=== PATIENT | male | born 1930 | race Caucasian/White ===

== ENCOUNTER 2017-03-18 15:09 | Emergency (ER) | payer MEDICARE, BC ==
[2017-03-18] MEDS ORDERED: Ibuprofen 600 MG Tab PO ONE (17:58)
--- NOTE | 2017-03-18 18:09 | EDM.PDOC ---
ED HPI GENERAL MEDICAL PROBLEM - General Chief Complaint: Neuro Symptoms/Deficits Stated Complaint: POSSIBLE STROKE Time Seen by Provider: 03/18/17 15:48 Source of Information: Reports: Patient, Family History Limitations: Reports: Altered Mental Status, Physical Impairment - History of Present Illness INITIAL COMMENTS - FREE TEXT/NARRATIVE: 86 years old w m with a h/o chronic low back pain, H/O L2 compression fx. On hydrocodon, was found by his daughter yesterday with slurred speech. No new trauma, Pt his not able to give a HPI. No N/V/D. pt appears to be lethargic. Onset Date: 03/17/17 Onset Time: 06:00 Duration: Hour(s):, Intermittent Location: Reports: Head Back Pain Score (Numeric/FACES): 5 - Related Data Allergies Allergy/AdvReac Type Severity Reaction Status Date / Time diclofenac Allergy Shortness Verified 03/18/17 15:47 of Breath promethazine Allergy Confusion Verified 03/18/17 15:47 Home Meds: Home Meds Digoxin [Digox] 0.125 mg PO DAILY 01/19/14 [History] Metoprolol Succinate [Toprol XL 50mg] 50 mg PO DAILY 01/19/14 [History] Warfarin Sodium [Jantoven] 2.5 mg PO MOWEFR 01/19/14 [History] Furosemide [Lasix] 40 mg PO DAILY PRN 08/24/16 [History] Triamcinolone Acetonide [Triamcinolone Acetonide 0.1% Crm] 1 applic TOP BEDTIME 08/24/16 [History] Carbidopa/Levodopa [Sinemet 25-250 MG] 0.5 tab PO Q4H PRN #60 tablet 08/26/16 [ Rx] Digoxin [Digox] 0.125 mg PO DAILY 03/18/17 [History] Hydrocodone/Acetaminophen [Hydrocodon-Acetaminophn 10-325] 1 tab PO Q6H PRN [History] traMADol [Ultram] 50 mg PO ASDIRECTED PRN 03/18/17 [History] Past Medical History HEENT History: Reports: Cataract, Glaucoma, Other (See Below) Other HEENT History: right pseudophokia Cardiovascular History: Reports: Afib Respiratory History: Reports: PE Genitourinary History: Reports: Prostate Disorder Other Genitourinary History: left kidney mass Musculoskeletal History: Reports: Back Pain, Chronic Other Musculoskeletal History: shoulder bursitis/tendonitis Neurological History: Reports: Other (See Below) Other Neuro History: restless legs Hematologic History: Reports: Anemia Oncologic (Cancer) History: Reports: Prostate Dermatologic History: Reports: Other (See Below) Other Dermatologic History: chronic itch - Infectious Disease History Infectious Disease History: Reports: Chicken Pox, Mumps - Past Surgical History HEENT Surgical History: Reports: Cataract Surgery, Other (See Below) GI Surgical History: Reports: Hernia, Inguinal Male Surgical History: Reports: Prostate Biopsy, TURP-Transurethral Resection of Prostate Musculoskeletal Surgical History: Reports: Hip Replacement, Shoulder Replacement Social & Family History - Tobacco Use Smoking Status *Q: Never Smoker Second Hand Smoke Exposure: No - Caffeine Use Caffeine Use: Reports: Coffee - Alcohol Use Days Per Week of Alcohol Use: 0 - Recreational Drug Use Recreational Drug Use: No ED ROS GENERAL - Review of Systems Review Of Systems: Unable To Obtain ED EXAM, NEURO - Physical Exam Exam: See Below Exam Limited By: Altered Mental Status General Appearance: Alert, Lethargic, Thin Eye Exam: Bilateral Eye: Normal Inspection Ears: Normal External Exam Nose: Normal Inspection Throat/Mouth: Normal Inspection Head Exam: Atraumatic, Normocephalic Neck: Normal Inspection, Supple, Non-Tender Respiratory/Chest: No Respiratory Distress (RR 16) Cardiovascular: Normal Peripheral Pulses GI/Abdominal: Normal Bowel Sounds, Soft, Non-Tender, No Organomegaly (Male) Exam: No Hernia Rectal (Males) Exam: Deferred Neurological: Alert, Normal Dorsiflexion, CN II-XII Intact, Normal Plantar Flexion, Abnormal Gait Back Exam: CVA Tenderness (L), Decreased Range of Motion (not new), Muscle Spasm Extremities: Normal Inspection, Other (traight leg rise test pos.) Psychiatric: Normal Affect, Normal Mood Skin Exam: Warm, Dry, Intact, Normal Color, No Rash EKG INTERPRETATION EKG Date: 03/18/17 Time: 16:05 Rhythm: A-Fib [place]: Normal P-Wave: Absent QRS: Normal ST-T: Normal QT: Normal Comparison: NA - No Prior EKG Course - Vital Signs Text/Narrative:: 86 years old w m with a h/o chronic low back pain, H/O L2 compression fx. On hydrocodon, was found by his daughter yesterday with slurred speech. No new trauma, Pt his not able to give a HPI. No N/V/D. pt appears to be lethargic. PE: thin 86 y.o.w.m, lethargic with slurred speech. pos straight leg rise test Imaging: CT head/Lspine, no acute change. Lab: INR: 1.36 BUN/Cr 27.3 HGB 11.00 WBC Nl. Na 133 K 4.0 Impression: Chronic low back pain, slurred speech ( maybe related to his meds) Subtherapeutic INR level. A fib with NVR. Gen weakness, DNR/DNI Tx: Motrin 600 mg. Reexam: Improved Family requested to d/c the patient to home. He will be observed by hi daughter Plan: D/C home with instructions Last Recorded V/S: Last Vital Signs Temp 36.8 C 03/18/17 15:48 Pulse 100 03/18/17 18:20 Resp 18 03/18/17 18:20 BP 164/99 H 03/18/17 18:20 Pulse Ox 95 03/18/17 18:20 - Orders/Labs/Meds Labs: Laboratory Tests 03/18/17 03/18/17 03/18/17 Range/Units 15:35 15:35 15:35 WBC 10.5 (4.5-12.0) X10-3/uL RBC 3.93 L (4.30-5.75) x10(6)uL Hgb 11.0 L (11.5-15.5) g/dL Hct 33.7 (30.0-51.3) % MCV 85.9 (80-96) fL MCH 28.0 (27.7-33.6) pg MCHC 32.6 (32.2-35.4) g/dL RDW 14.7 (11.5-15.5) % Plt Count 317 (125-369) X10(3)uL MPV 7.6 (7.4-10.4) fL Neut % (Auto) 82.7 H (46-82) % Lymph % (Auto) 7.8 L (13-37) % [place] % (Auto) 8.7 (4-12) % Eos % (Auto) 1 (1.0-5.0) % Baso % (Auto) 0 (0-2) % Neut # (Auto) 8.7 H (1.6-8.3) # Lymph # (Auto) 0.8 (0.6-5.0) # [place] # (Auto) 0.9 (0.0-1.3) # Eos # (Auto) 0.1 (0.0-0.8) # Baso # (Auto) 0.0 (0.0-0.2) # PT 13.7 H (8.7-11.1) INR 1.35 H (0.89-1.13) Sodium 133 L (135-145) mmol/L Potassium 4.7 (3.5-5.3) mmol/L Chloride 102 D (100-110) mmol/L Carbon Dioxide 24 (23-29) mmol/L BUN 30 H (8-23) mg/dL Creatinine 1.1 (0.6-1.3) mg/dL Est Cr Clr Drug Dosing 47.93 mL/min Estimated GFR (MDRD) > 60 (>60) BUN/Creatinine Ratio 27.3 H (9-20) Glucose 122 H (80-116) mg/dL Calcium 8.8 (8.6-10.2) mg/dL Creatine Kinase (60-160) IU/L Troponin I (0.02-0.06) NG/ML B-Natriuretic Peptide (0-100) pg/mL 03/18/17 03/18/17 03/18/17 Range/Units 15:35 15:35 15:35 WBC (4.5-12.0) X10-3/uL RBC (4.30-5.75) x10(6)uL Hgb (11.5-15.5) g/dL Hct (30.0-51.3) % MCV (80-96) fL MCH (27.7-33.6) pg MCHC (32.2-35.4) g/dL RDW (11.5-15.5) % Plt Count (125-369) X10(3)uL MPV (7.4-10.4) fL Neut % (Auto) (46-82) % Lymph % (Auto) (13-37) % [place] % (Auto) (4-12) % Eos % (Auto) (1.0-5.0) % Baso % (Auto) (0-2) % Neut # (Auto) (1.6-8.3) # Lymph # (Auto) (0.6-5.0) # [place] # (Auto) (0.0-1.3) # Eos # (Auto) (0.0-0.8) # Baso # (Auto) (0.0-0.2) # PT (8.7-11.1) INR (0.89-1.13) Sodium (135-145) mmol/L Potassium (3.5-5.3) mmol/L Chloride (100-110) mmol/L Carbon Dioxide (23-29) mmol/L BUN (8-23) mg/dL Creatinine (0.6-1.3) mg/dL Est Cr Clr Drug Dosing mL/min Estimated GFR (MDRD) (>60) BUN/Creatinine Ratio (9-20) Glucose (80-116) mg/dL Calcium (8.6-10.2) mg/dL Creatine Kinase 81 (60-160) IU/L Troponin I 0.02 (0.02-0.06) NG/ML B-Natriuretic Peptide 633 H (0-100) pg/mL Meds: Medications Discontinued Medications Generic Name Dose Route Start Last Admin Trade Name Thiago PRN Reason Stop Dose Admin Ibuprofen 600 mg 03/18/17 17:58 03/18/17 18:33 Motrin PO 03/18/17 17:59 Not Given ONETIME ONE Departure - Departure Time of Disposition: 18:06 Disposition: Home, Self-Care 01 Condition: Good, Fair Clinical Impression: Slurred speech - Discharge Information Referrals: Parker Zayas MD [Primary Care Provider] - Forms: ED Department Discharge Additional Instructions: Please f/u with your PMD in next 1-3 days, please apply ice to the affected area , please come back if your symptoms get worse acutely.
[2017-03-18 18:22] VITALS: BP 164/99
--- NOTE | 2017-03-19 10:44 | CR ---
INDICATION: Elevated BNP. CHEST: AP upright portable view of the chest, 03/18/2017, was compared with 12/2016 and 08/08/2014, again revealing the heart to be enlarged, the aorta tortuous and calcified. No definite evidence of CHF is seen. Little interval change was suggested. Total shoulder arthroplasty is noted on the right. Demineralization is suggested. IMPRESSION: No acute process. Stable chest. MTDD
== END 2017-03-18 18:20 | disposition home or self-care (01) ==
LOC: FB.ED 15:09 → FB.MS 18:00 → UNDOADMOB 18:00 → FB.ED 18:20
DX: R47.81 Slurred speech (principal); M62.838 Other muscle spasm; R53.83 Other fatigue; I48.91 Unspecified atrial fibrillation; Z79.01 Long term (current) use of anticoagulants; Z79.899 Other long term (current) drug therapy; Z98.49 Cataract extraction status, unspecified eye; Z86.711 Personal history of pulmonary embolism
CPT/HCPCS: 36415; 70450; 71010; 72128; 72131; 80048; 82550; 83880; 84484; 85025; 85610; 93005; 99282; 99285

== ENCOUNTER 2018-01-04 16:11 | Inpatient (IN) | payer MEDICARE, BC ==
[2018-01-04] MEDS ORDERED: Albuterol 0.083% 2.5 MG/3 ML Neb Soln NEB ONE (16:33)
--- NOTE | 2018-01-04 16:41 | EDM.PDOC ---
ED HPI GENERAL MEDICAL PROBLEM - General Chief Complaint: Respiratory Problem Stated Complaint: SOB Time Seen by Provider: 01/04/18 16:36 Source of Information: Reports: Patient, Family History Limitations: Reports: No Limitations - History of Present Illness INITIAL COMMENTS - FREE TEXT/NARRATIVE: Productive cough x 2 weeks, worsening. Treated by PMD yesterday and today with IM Rocephin and Omnicef. Complains of generalized weakness, onset today. - Related Data Allergies Allergy/AdvReac Type Severity Reaction Status Date / Time diclofenac Allergy Shortness Verified 01/04/18 16:25 of Breath promethazine Allergy Confusion Verified 01/04/18 16:25 Home Meds: Home Meds Warfarin Sodium [Jantoven] 2.5 mg PO MOWEFR 01/19/14 [History] Furosemide [Lasix] 40 mg PO DAILY 08/24/16 [History] Digoxin [Digox] 0.125 mg PO DAILY 03/18/17 [History] traMADol [Ultram] 50 mg PO Q4HR PRN 03/18/17 [History] Calcitonin ([place]) [Miacalcin Nasal [place]] 1 spray NS DAILY 01/04/18 [History] Carbidopa/Levodopa [Sinemet 25-250 MG] 1 tab PO 01/04/18 [History] Carbidopa/Levodopa [Sinemet 25-250 MG] 1 tab PO QID PRN 01/04/18 [History] Celecoxib [CeleBREX] 100 mg PO DAILY 01/04/18 [History] Cyclobenzaprine [Flexeril] 10 mg PO BID 01/04/18 [History] Diclofenac Sodium [Voltaren] 100 gm TP TID PRN 01/04/18 [History] Ferrous Sulfate 325 mg PO BIDMEALS 01/04/18 [History] Metoprolol Succinate [Toprol XL] 50 mg PO DAILY 01/04/18 [History] Sennosides/Docusate Sodium [Senna-S] 1 each PO 01/04/18 [History] Warfarin [Coumadin] 5 mg PO ASDIRECTED 01/04/18 [History] Past Medical History HEENT History: Reports: Cataract, Glaucoma, Other (See Below) Other HEENT History: right pseudophokia Cardiovascular History: Reports: Afib, Heart Failure Respiratory History: Reports: PE Genitourinary History: Reports: Prostate Disorder Other Genitourinary History: left kidney mass Musculoskeletal History: Reports: Back Pain, Chronic Other Musculoskeletal History: shoulder bursitis/tendonitis Neurological History: Reports: Other (See Below) Other Neuro History: restless legs Hematologic History: Reports: Anemia Oncologic (Cancer) History: Reports: Prostate Dermatologic History: Reports: Other (See Below) Other Dermatologic History: chronic itch - Infectious Disease History Infectious Disease History: Reports: Chicken Pox, Mumps - Past Surgical History HEENT Surgical History: Reports: Cataract Surgery, Other (See Below) GI Surgical History: Reports: Hernia, Inguinal Male Surgical History: Reports: Prostate Biopsy, TURP-Transurethral Resection of Prostate Musculoskeletal Surgical History: Reports: Hip Replacement, Shoulder Replacement Social & Family History - Caffeine Use Caffeine Use: Reports: Coffee ED ROS GENERAL - Review of Systems Review Of Systems: See Below Constitutional: Reports: Fever, Weakness HEENT: Reports: No Symptoms Respiratory: Reports: Cough, Sputum (brown) Cardiovascular: Reports: No Symptoms Endocrine: Reports: Fatigue GI/Abdominal: Reports: No Symptoms : Reports: No Symptoms Musculoskeletal: Reports: No Symptoms Skin: Reports: No Symptoms Neurological: Reports: No Symptoms ED EXAM, GENERAL - Physical Exam Exam: See Below Exam Limited By: No Limitations General Appearance: Alert, WD/WN, No Apparent Distress Nose: Normal Inspection Throat/Mouth: Normal Oropharynx, No Airway Compromise Head: Atraumatic, Normocephalic Neck: Supple Respiratory/Chest: No Respiratory Distress, Wheezing (bilateral) Cardiovascular: Tachycardia, Irregularly Irregular GI/Abdominal: No Distention Extremities: Normal Range of Motion, Pedal Edema, Other (left pretibial erythema and warmth) Neurological: Alert, No Motor/Sensory Deficits Skin Exam: Warm, Dry, Intact EKG INTERPRETATION EKG Date: 01/04/18 Time: 17:20 Rhythm: A-Fib Rate (Beats/Min): 133 QRS: Normal ST-T: Normal QT: Prolonged (491 ms) Course - Vital Signs Last Recorded V/S: Last Vital Signs Temp 36.8 C 01/04/18 16:11 Pulse 138 H 01/04/18 19:05 Resp 32 H 01/04/18 16:11 BP 163/106 H 01/04/18 16:11 Pulse Ox 93 L 01/04/18 16:11 - Orders/Labs/Meds Orders: Active Orders 24 hr Category Date Time Status EKG Documentation Completion [RC] ASDIRECTED Care 01/04/18 16:34 Active RT Aerosol Therapy [RC] ASDIRECTED Care 01/04/18 16:34 Active CXR [Chest 1V Frontal] [CR] Stat Exams 01/04/18 16:32 Taken Chest wo Cont [CT] Stat Exams 01/04/18 18:47 Taken CULTURE BLOOD [BC] Urgent Lab 01/04/18 16:55 Received CULTURE BLOOD [BC] Urgent Lab 01/04/18 18:00 Received CULTURE SPUTUM + SMEAR [RM] Stat Lab 01/04/18 20:20 Ordered UA W/MICROSCOPIC [URIN] Stat Lab 01/04/18 18:27 Ordered Cefepime [Maxipime] 2 gm Med 01/04/18 20:22 Active Sodium Chloride 0.9% [Normal Saline] 50 ml IV ONETIME EKG 12 Lead [EK] Stat Ther 01/04/18 16:34 Ordered Medication Orders Cefepime HCl 2 gm/ Sodium (Chloride) 50 mls @ 100 mls/hr IV ONETIME ONE Stop: 01/04/18 20:51 Labs: Laboratory Tests 01/04/18 01/04/18 01/04/18 Range/Units 16:50 16:50 16:55 WBC 12.5 H (4.5-12.0) X10-3/uL RBC 3.63 L (4.30-5.75) x10(6)uL Hgb 10.5 L (11.5-15.5) g/dL Hct 32.0 (30.0-51.3) % MCV 88.2 (80-96) fL MCH 29.0 (27.7-33.6) pg MCHC 32.9 (32.2-35.4) g/dL RDW 15.1 (11.5-15.5) % Plt Count 284 (125-369) X10(3)uL MPV 7.9 (7.4-10.4) fL Neut % (Auto) 84.8 H (46-82) % Lymph % (Auto) 6.2 L (13-37) % [place] % (Auto) 8.6 (4-12) % Eos % (Auto) 0 L (1.0-5.0) % Baso % (Auto) 0 (0-2) % Neut # (Auto) 10.6 H (1.6-8.3) # Lymph # (Auto) 0.8 (0.6-5.0) # [place] # (Auto) 1.1 (0.0-1.3) # Eos # (Auto) 0.0 (0.0-0.8) # Baso # (Auto) 0.0 (0.0-0.2) # PT (8.7-11.1) INR (0.89-1.13) Sodium (135-145) mmol/L Potassium (3.5-5.3) mmol/L Chloride (100-110) mmol/L Carbon Dioxide (21-32) mmol/L BUN (7-18) mg/dL Creatinine (0.70-1.30) mg/dL Est Cr Clr Drug Dosing Estimated GFR (MDRD) (>60) BUN/Creatinine Ratio (9-20) Glucose (80-116) mg/dL Lactic Acid (0.4-2.2) mmol/L Calcium (8.6-10.2) mg/dL Magnesium 1.9 (1.8-2.5) mg/dL Total Bilirubin (0.1-1.3) mg/dL AST (5-25) IU/L ALT (12-36) U/L Alkaline Phosphatase (56-112) IU/L Troponin I 0.078 H* (<0.017-0.056) ng/mL NT-Pro-B Natriuret Pep (<=450) pg/mL Total Protein (6.0-8.0) g/dL Albumin (2.9-4.5) g/dL Globulin g/dL Albumin/Globulin Ratio Urine Color (YELLOW) Urine Appearance (CLEAR) Urine pH (5.0-6.5) Ur Specific [place] (1.010-1.025) Urine Protein (NEGATIVE) mg/dL Urine Glucose (UA) (NEGATIVE) mg/dL Urine Ketones (NEGATIVE) mg/dL Urine Occult Blood (NEGATIVE) Urine Nitrite (NEGATIVE) Urine Bilirubin (NEGATIVE) Urine Urobilinogen (NEGATIVE) mg/dL Ur Leukocyte Esterase (NEGATIVE) Urine RBC (0) Urine WBC (0) Ur Squamous Epith Cells (NS,R,O) Urine Bacteria (NS) Digoxin (0.9-2.0) ng/mL 01/04/18 01/04/18 01/04/18 Range/Units 16:55 16:55 16:55 WBC (4.5-12.0) X10-3/uL RBC (4.30-5.75) x10(6)uL Hgb (11.5-15.5) g/dL Hct (30.0-51.3) % MCV (80-96) fL MCH (27.7-33.6) pg MCHC (32.2-35.4) g/dL RDW (11.5-15.5) % Plt Count (125-369) X10(3)uL MPV (7.4-10.4) fL Neut % (Auto) (46-82) % Lymph % (Auto) (13-37) % [place] % (Auto) (4-12) % Eos % (Auto) (1.0-5.0) % Baso % (Auto) (0-2) % Neut # (Auto) (1.6-8.3) # Lymph # (Auto) (0.6-5.0) # [place] # (Auto) (0.0-1.3) # Eos # (Auto) (0.0-0.8) # Baso # (Auto) (0.0-0.2) # PT 17.7 H (8.7-11.1) INR 1.83 H (0.89-1.13) Sodium 140 (135-145) mmol/L Potassium 4.0 (3.5-5.3) mmol/L Chloride 104 (100-110) mmol/L Carbon Dioxide 25 (21-32) mmol/L BUN 38 H (7-18) mg/dL Creatinine 1.2 (0.70-1.30) mg/dL Est Cr Clr Drug Dosing TNP Estimated GFR (MDRD) 57 L (>60) BUN/Creatinine Ratio 31.7 H (9-20) Glucose 124 H (80-116) mg/dL Lactic Acid (0.4-2.2) mmol/L Calcium 8.6 (8.6-10.2) mg/dL Magnesium (1.8-2.5) mg/dL Total Bilirubin 0.5 (0.1-1.3) mg/dL AST 42 H (5-25) IU/L ALT 11 L (12-36) U/L Alkaline Phosphatase 95 (56-112) IU/L Troponin I (<0.017-0.056) ng/mL NT-Pro-B Natriuret Pep 7353 H* (<=450) pg/mL Total Protein 6.7 (6.0-8.0) g/dL Albumin 3.1 (2.9-4.5) g/dL Globulin 3.6 g/dL Albumin/Globulin Ratio 0.9 Urine Color (YELLOW) Urine Appearance (CLEAR) Urine pH (5.0-6.5) Ur Specific [place] (1.010-1.025) Urine Protein (NEGATIVE) mg/dL Urine Glucose (UA) (NEGATIVE) mg/dL Urine Ketones (NEGATIVE) mg/dL Urine Occult Blood (NEGATIVE) Urine Nitrite (NEGATIVE) Urine Bilirubin (NEGATIVE) Urine Urobilinogen (NEGATIVE) mg/dL Ur Leukocyte Esterase (NEGATIVE) Urine RBC (0) Urine WBC (0) Ur Squamous Epith Cells (NS,R,O) Urine Bacteria (NS) Digoxin 0.6 L (0.9-2.0) ng/mL 01/04/18 01/04/18 01/04/18 Range/Units 16:55 18:27 19:55 WBC (4.5-12.0) X10-3/uL RBC (4.30-5.75) x10(6)uL Hgb (11.5-15.5) g/dL Hct (30.0-51.3) % MCV (80-96) fL MCH (27.7-33.6) pg MCHC (32.2-35.4) g/dL RDW (11.5-15.5) % Plt Count (125-369) X10(3)uL MPV (7.4-10.4) fL Neut % (Auto) (46-82) % Lymph % (Auto) (13-37) % [place] % (Auto) (4-12) % Eos % (Auto) (1.0-5.0) % Baso % (Auto) (0-2) % Neut # (Auto) (1.6-8.3) # Lymph # (Auto) (0.6-5.0) # [place] # (Auto) (0.0-1.3) # Eos # (Auto) (0.0-0.8) # Baso # (Auto) (0.0-0.2) # PT (8.7-11.1) INR (0.89-1.13) Sodium (135-145) mmol/L Potassium (3.5-5.3) mmol/L Chloride (100-110) mmol/L Carbon Dioxide (21-32) mmol/L BUN (7-18) mg/dL Creatinine (0.70-1.30) mg/dL Est Cr Clr Drug Dosing Estimated GFR (MDRD) (>60) BUN/Creatinine Ratio (9-20) Glucose (80-116) mg/dL Lactic Acid 1.1 (0.4-2.2) mmol/L Calcium (8.6-10.2) mg/dL Magnesium (1.8-2.5) mg/dL Total Bilirubin (0.1-1.3) mg/dL AST (5-25) IU/L ALT (12-36) U/L Alkaline Phosphatase (56-112) IU/L Troponin I 0.071 H (<0.017-0.056) ng/mL NT-Pro-B Natriuret Pep (<=450) pg/mL Total Protein (6.0-8.0) g/dL Albumin (2.9-4.5) g/dL Globulin g/dL Albumin/Globulin Ratio Urine Color Yellow (YELLOW) Urine Appearance Clear (CLEAR) Urine pH 5.0 (5.0-6.5) Ur Specific [place] 1.020 (1.010-1.025) Urine Protein 30 H (NEGATIVE) mg/dL Urine Glucose (UA) Normal (NEGATIVE) mg/dL Urine Ketones 15 H (NEGATIVE) mg/dL Urine Occult Blood Negative (NEGATIVE) Urine Nitrite Negative (NEGATIVE) Urine Bilirubin Small H (NEGATIVE) Urine Urobilinogen 1 H (NEGATIVE) mg/dL Ur Leukocyte Esterase Negative (NEGATIVE) Urine RBC 0-5 (0) Urine WBC 0-5 (0) Ur Squamous Epith Cells Occasional (NS,R,O) Urine Bacteria Rare H (NS) Digoxin (0.9-2.0) ng/mL Meds: Medications Generic Name Dose Route Start Last Admin Trade Name Freq PRN Reason Stop Dose Admin Cefepime HCl 2 gm/ Sodium 50 mls @ 100 mls/hr 01/04/18 20:22 Chloride IV 01/04/18 20:51 ONETIME ONE Discontinued Medications Generic Name Dose Route Start Last Admin Trade Name Thiago PRN Reason Stop Dose Admin Albuterol 2.5 mg 01/04/18 16:33 01/04/18 16:40 Proventil Neb Soln NEB 01/04/18 16:34 2.5 mg ONETIME ONE Administration Digoxin 125 mcg 01/04/18 18:41 01/04/18 19:05 Lanoxin IVPUSH 01/04/18 18:42 125 mcg ONETIME ONE Administration Furosemide 20 mg 01/04/18 18:39 01/04/18 19:07 Lasix IVPUSH 01/04/18 18:40 20 mg NOW ONE Administration Sodium Chloride 1,000 mls @ 100 mls/hr 01/04/18 16:45 01/04/18 17:03 Normal Saline IV 100 mls/hr ASDIRECTED LAVINIA Administration - Radiology Interpretation Free Text/Narrative:: CXR: CHF CT Chest w/o contrast: patchy bilateral infiltrated, lower lobes and lingula, benign appearing kidney lesions (per Dr. Florez) - Re-Assessments/Exams Free Text/Narrative Re-Assessment/Exam: 01/04/18 1704: patient had 5 beat run of PVCs. 01/04/18 2046: Heart rate 109 (afib) p Digoxin 0.125 mg IV. Departure - Departure Time of Disposition: 20:45 Disposition: Admitted As Inpatient 64 Condition: Fair Clinical Impression: Pneumonia, CHF exacerbation, Atrial fibrillation with RVR, Left leg cellulitis - Discharge Information Referrals: Parker Zayas MD [Primary Care Provider] - Forms: ED Department Discharge - Problem List & Annotations (1) Atrial fibrillation with RVR SNOMED Code(s): 369504096061110 Code(s): I48.91 - UNSPECIFIED ATRIAL FIBRILLATION Status: Acute Current Visit: Yes Annotation/Comment:: Admit, Digoxin (2) CHF exacerbation SNOMED Code(s): 25359497 Code(s): I50.9 - HEART FAILURE, UNSPECIFIED Status: Acute Current Visit: Yes Annotation/Comment:: Admit, Lasix Qualifiers: Heart failure type: unspecified Qualified Code(s): I50.9 - Heart failure, unspecified (3) Left leg cellulitis SNOMED Code(s): 758784999 Code(s): L03.116 - CELLULITIS OF LEFT LOWER LIMB Status: Acute Current Visit: Yes Annotation/Comment:: Cefepime (4) Pneumonia SNOMED Code(s): 851786425 Code(s): J18.9 - PNEUMONIA, UNSPECIFIED ORGANISM Status: Acute Current Visit: Yes Annotation/Comment:: Admit, Cefepime Qualifiers: Pneumonia type: due to unspecified organism Laterality: bilateral Lung location: unspecified part of lung Qualified Code(s): J18.9 - Pneumonia, unspecified organism - Problem List Review Problem List Initiated/Reviewed/Updated: Yes - My Orders Last 24 Hours: My Active Orders 01/04/18 16:32 CXR [Chest 1V Frontal] [CR] Stat 01/04/18 16:34 EKG Documentation Completion [RC] ASDIRECTED RT Aerosol Therapy [RC] ASDIRECTED EKG 12 Lead [EK] Stat 01/04/18 16:55 CULTURE BLOOD [BC] Urgent 01/04/18 18:00 CULTURE BLOOD [BC] Urgent 01/04/18 18:27 UA W/MICROSCOPIC [URIN] Stat 01/04/18 18:47 Chest wo Cont [CT] Stat 01/04/18 20:20 CULTURE SPUTUM + SMEAR [RM] Stat 01/04/18 20:22 Cefepime [Maxipime] 2 gm Sodium Chloride 0.9% [Normal Saline] 50 ml IV ONETIME - Assessment/Plan Last 24 Hours: My Active Orders 01/04/18 16:32 CXR [Chest 1V Frontal] [CR] Stat 01/04/18 16:34 EKG Documentation Completion [RC] ASDIRECTED RT Aerosol Therapy [RC] ASDIRECTED EKG 12 Lead [EK] Stat 01/04/18 16:55 CULTURE BLOOD [BC] Urgent 01/04/18 18:00 CULTURE BLOOD [BC] Urgent 01/04/18 18:27 UA W/MICROSCOPIC [URIN] Stat 01/04/18 18:47 Chest wo Cont [CT] Stat 01/04/18 20:20 CULTURE SPUTUM + SMEAR [RM] Stat 01/04/18 20:22 Cefepime [Maxipime] 2 gm Sodium Chloride 0.9% [Normal Saline] 50 ml IV ONETIME
[2018-01-04] MEDS ORDERED: Sodium Chloride 0.9% 1,000 ML IV SCH (16:45)
[2018-01-04] MEDS ORDERED: Furosemide 40 MG/4 ML VIAL IVPUSH ONE (18:39)
[2018-01-04] MEDS ORDERED: Digoxin 500 MCG/2 ML Amp IVPUSH ONE (18:41)
[2018-01-04] MEDS ORDERED: Cefepime 2 GM in Sodium Chloride 0.9% 50 ML IV ONE (20:22)
[2018-01-04] MEDS ORDERED: Carbidopa/Levodopa 25-250 MG Tab PO PRN (21:06)
[2018-01-04] MEDS ORDERED: Warfarin 5 MG Tab PO SCH (21:15)
[2018-01-04] MEDS ORDERED: Cefepime 2 GM in Sodium Chloride 0.9% 50 ML IV SCH (22:00)
[2018-01-04] MEDS ORDERED: Metoprolol Tartrate 5 MG in Sodium Chloride 0.9% 50 ML IV ONE (22:24)
[2018-01-04] MEDS: traMADol 50 MG Tab PO PRN (22:30)
[2018-01-04] MEDS ORDERED: Metoprolol Tartrate 5 MG/5 ML SDV ONE (22:43)
[2018-01-04] MEDS ORDERED: Carbidopa/Levodopa 25-250 MG Tab PO SCH (22:45)
[2018-01-04] MEDS: Sodium Chloride 0.9% 10 ML Syringe FLUSH PRN ×2 (23:02→23:46)
[2018-01-04] MEDS: Lisinopril 5 MG Tab ONE ×2 (23:09→23:10)
[2018-01-04] MEDS: Lisinopril 2.5 MG Tab PO SCH (23:10)
[2018-01-05] MEDS: Albuterol 0.083% 2.5 MG/3 ML Neb Soln NEB PRN ×2 (03:17→07:17)
[2018-01-05] MEDS ORDERED: Warfarin 2.5 MG Tab PO SCH (07:26)
[2018-01-05] MEDS: traMADol 50 MG Tab PO PRN (07:28)
[2018-01-05] MEDS: Carbidopa/Levodopa 25-250 MG Tab PO SCH ×4 (07:30→21:19)
[2018-01-05] MEDS: Sodium Chloride 0.9% 10 ML Syringe FLUSH PRN ×4 (07:36→18:42)
[2018-01-05] MEDS ORDERED: Warfarin Sliding Scale PO SCH (08:30)
[2018-01-05] MEDS: Lisinopril 2.5 MG Tab PO SCH (08:53)
[2018-01-05] MEDS: Celecoxib 100 MG Cap PO SCH (08:54)
[2018-01-05] MEDS: Ferrous Sulfate 325 MG Tab PO SCH ×2 (08:54→17:24)
[2018-01-05] MEDS: Furosemide 40 MG/4 ML VIAL IVPUSH SCH (08:54)
[2018-01-05] MEDS ORDERED: Digoxin 250 MCG Tab PO SCH (09:00)
[2018-01-05] MEDS ORDERED: Carbidopa/Levodopa 25-250 MG Tab PO SCH (09:00)
[2018-01-05] MEDS ORDERED: Metoprolol Succinate 50 MG Tab.ER PO SCH (09:00)
[2018-01-05] MEDS ORDERED: Cefepime 2 GM Vial IVPUSH SCH (10:00)
[2018-01-05] MEDS ORDERED: Cefepime 2 GM in Sodium Chloride 0.9% 50 ML IV SCH (11:00)
[2018-01-05] MEDS: Albuterol/Ipratropium 3.0-0.5 MG/3 ML Neb Soln NEB SCH ×3 (11:10→21:18)
[2018-01-05] MEDS: methylPREDNISolone Sodium Succinate 40 MG/1 ML SDV IVPUSH SCH ×2 (11:27→18:41)
[2018-01-05] MEDS: Azithromycin 500 MG in Sodium Chloride 0.9% 250 ML IV SCH (11:29)
[2018-01-05] MEDS: Bisacodyl 5 MG Tab PO PRN (14:47)
--- NOTE | 2018-01-05 15:02 | HP ---
ADMISSION DATE: 01/04/2018 REASON FOR VISIT: Respiratory difficulty. HISTORY OF PRESENT ILLNESS: Rahat Reyes is an 87-year-old, male, , admitted to [place] through [facility]. He has been followed recently as an outpatient for involving respiratory illness. He has been seen in outpatient, intravenous Rocephin. Symptoms have not abated. Complicated cough, respiratory difficulty, shortness of breath on exertion, and a sense of reduced well-being. Fever suspected but not confirmed. History of atrial fibrillation, on Lanoxin therapy, chronic atrial fibrillation. Radiographs suggest bibasilar pneumonia, intravenous antibiotic therapy and supportive measures in place. MEDICATIONS: On admission include: 1. Voltaren gel t.i.d., joint pain. 2. Furosemide 80 mg 1 p.o. daily, edema. 3. Tramadol 50 mg q.i.d. p.r.n. for pain. 4. Calcitonin 1 spray each nostril daily, osteoporosis. 5. Sinemet 250 q.i.d. p.r.n. for restless legs. 6. Flexeril 5 mg b.i.d. joint pain. 7. Digoxin 0.25 1 p.o. a day, atrial fibrillation, rate controlled. 8. Senna-S 1 p.o. b.i.d., constipation. 9. Celebrex 100 mg 1 p.o. daily, arthritis. 10.Ferrous sulfate 325 b.i.d. anemia. 11.Metoprolol 25 mg XL 1 p.o. daily, heart rate control. 12.Warfarin per protocol. PAST MEDICAL HISTORY: Significant for bilateral cataract surgery, inguinal herniorrhaphy, transurethral resection of prostate for benign disease, bilateral hip replacements, and shoulder replacements. Chronic illnesses include suspected CHF, atrial fibrillation, and hypertension. No other operative procedures, hospitalizations, unusual childhood diseases, major injuries, or fractures. ALLERGIES: To diclofenac, shortness of breath; promethazine with confusion. SOCIAL HISTORY: , 88 years of age. Two children, one son, one daughter. 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 Smoked remotely. No alcohol consumption. No illicit drug use. REVIEW OF SYSTEMS: Breathing poorly. Short of breath. Fatigable, tired, complicated cough. Bowels have been fine. Bladder has been fine. No blood in urine. Nocturia x2. Generalized joint complaints. PHYSICAL EXAMINATION: VITAL SIGNS: 160/107, 97 is the pulse, irregularly irregular. O2 saturation 96 per exam. GENERAL: Appears comfortable. HEENT: Gurgling upper tracheal sounds. Conjunctivae clear. Bright tympanic membranes. Clear nasal discharge. Mouth and oropharynx clear. Poor dentition. NECK: Benign. Thyroid small. No JVD. CHEST: Coarse rhonchi, upper airway in nature. HEART: Distant heart sounds with ongoing atrial fib ectopy. ABDOMEN: Benign. Lower abdominal herniorrhaphy scar well healed. No hepatosplenomegaly. : Normal male genitalia. Atrophic testicles. RECTAL: Deferred. EXTREMITIES: Well perfused. Venous stasis changes. LABORATORY STUDIES: White count 12,500, repeat 9500; hemoglobin 10.5, 10.3; INR 1.83, 2.0, therapeutic. Electrolytes of consequence, GFR 57 and 50, troponin 0.071, BNP 7353, urinalysis with proteinuria without pyuria. Digoxin level 0.6. ASSESSMENT: An 87-year-old male presents with complicated respiratory difficulty, bibasilar pneumonia, rate uncontrolled atrial fibrillation, respiratory distress. PLAN: Intravenous antibiotics will be provided, complementary care and well being, aggressive RT treatment, IV Solu-Medrol, rate control, intervention and care as appropriate. /[id number] /SCOTTY
[2018-01-05] MEDS: Warfarin 5 MG Tab PO SCH (16:44)
[2018-01-06] MEDS: Sodium Chloride 0.9% 10 ML Syringe FLUSH PRN ×6 (03:44→22:48)
[2018-01-06] MEDS: methylPREDNISolone Sodium Succinate 40 MG/1 ML SDV IVPUSH SCH ×3 (03:44→18:01)
[2018-01-06] MEDS: Albuterol/Ipratropium 3.0-0.5 MG/3 ML Neb Soln NEB SCH ×4 (07:02→21:31)
[2018-01-06] MEDS: Carbidopa/Levodopa 25-250 MG Tab PO SCH ×4 (07:58→21:32)
[2018-01-06] MEDS: Ferrous Sulfate 325 MG Tab PO SCH ×2 (07:58→17:55)
[2018-01-06] MEDS: Furosemide 40 MG/4 ML VIAL IVPUSH SCH (08:00)
[2018-01-06] MEDS: Lisinopril 2.5 MG Tab PO SCH (08:00)
[2018-01-06] MEDS: Celecoxib 100 MG Cap PO SCH (08:00)
[2018-01-06] MEDS: Metoprolol Tartrate 5 MG/5 ML SDV IVPUSH PRN ×3 (08:45→22:48)
[2018-01-06] MEDS ORDERED: cefTRIAXone 1,000 MG in Sodium Chloride 0.9% 50 ML IV SCH (10:30)
[2018-01-06] MEDS ORDERED: Cefepime 2 GM in Sodium Chloride 0.9% 50 ML IV SCH (11:00)
[2018-01-06] MEDS: Azithromycin 500 MG in Sodium Chloride 0.9% 250 ML IV SCH (11:58)
[2018-01-06] MEDS: Cefepime 2 GM Vial IVPUSH SCH (12:21)
[2018-01-06] MEDS: Bisacodyl 5 MG Tab PO PRN (16:31)
[2018-01-06] MEDS: Warfarin 5 MG Tab PO SCH (16:31)
[2018-01-07] MEDS: Cefepime 2 GM Vial IVPUSH SCH ×2 (00:56→12:17)
[2018-01-07] MEDS: Sodium Chloride 0.9% 10 ML Syringe FLUSH PRN ×9 (01:09→18:28)
[2018-01-07] MEDS: methylPREDNISolone Sodium Succinate 40 MG/1 ML SDV IVPUSH SCH ×3 (02:50→18:28)
[2018-01-07] MEDS: Metoprolol Tartrate 5 MG/5 ML SDV IVPUSH PRN ×2 (06:15→08:52)
[2018-01-07] MEDS: Albuterol/Ipratropium 3.0-0.5 MG/3 ML Neb Soln NEB SCH ×4 (07:05→20:19)
[2018-01-07] MEDS: Carbidopa/Levodopa 25-250 MG Tab PO SCH ×4 (07:36→20:21)
[2018-01-07] MEDS: traMADol 50 MG Tab PO PRN (07:54)
[2018-01-07] MEDS: Ferrous Sulfate 325 MG Tab PO SCH ×3 (07:58→18:33)
[2018-01-07] MEDS: Celecoxib 100 MG Cap PO SCH (07:59)
[2018-01-07] MEDS: Furosemide 40 MG/4 ML VIAL IVPUSH SCH (08:01)
[2018-01-07] MEDS: Lisinopril 2.5 MG Tab PO SCH (08:01)
[2018-01-07] MEDS ORDERED: Magnesium Hydroxide 400 MG/5 ML Susp 30 ML Cup PO PRN (08:51)
[2018-01-07] MEDS ORDERED: Trolamine Salicylate/Aloe Vera 10% Crm 85 GM Tube TOP PRN (08:51)
--- NOTE | 2018-01-07 10:10 | PN ---
DATE SEEN: 01/06/2018 SUBJECTIVE: Mr. Reyes is an 87-year-old male, admitted with acute respiratory distress. Worsening cough outpatient resistant, declining intravenous antibiotics and lack of clinical response. Was seen and evaluated, had bilateral pneumonia. Admission to hospital is indicated. Feeling much better today. Breathing is more comfortable. Saturation are satisfactory, taking fluids with good success. OBJECTIVE: VITAL SIGNS: Pulse 147, but irregular, 170/109, respirations were less labor. CHEST: Diffuse and coarse rhonchi. HEART: Distant heart sounds. ABDOMEN: Benign. SKIN: Without rash. IMPRESSION: Pneumonia with underlying chronic obstructive pulmonary disease. PLAN: Continue antibiotic therapy. Aggressive fluids, RT treatment. Complementary care and well being. /[id number] CAROL ANN/SCOTTY
[2018-01-07] MEDS: Digoxin 125 MCG Tab PO SCH (10:31)
[2018-01-07] MEDS: Metoprolol Tartrate 25 MG Tab PO SCH ×2 (10:31→20:19)
[2018-01-07] MEDS ORDERED: Celecoxib 100 MG Cap PO PRN (10:48)
[2018-01-07] MEDS: Azithromycin 500 MG in Sodium Chloride 0.9% 250 ML IV SCH (10:49)
--- NOTE | 2018-01-07 11:55 | PN ---
DATE SEEN: 01/07/2018 SUBJECTIVE: Mr. Reyes is an 87-year-old male, admitted with acute respiratory distress, complicated with pneumonia and hypoxia. Heart rate control an issue accompanying. Atrial fibrillation, not rate controlled. Digoxin level had been therapeutic at 0.125. 3 doses of intravenous metoprolol have been required. Cough is improving. Secretions are clearing, comfortable, and well being. Cultures: Sputum: Normal yoli. Blood cultures x3 days negative. CT and x-rays: CT chest report pending. OBJECTIVE: VITAL SIGNS: Pulse 110-140, 170/119, 136, and 95%. GENERAL: Appears comfortable. Little short of breath with conversation. NECK: Benign. Thyroid small. CHEST: Coarse rhonchi but better air exchange. HEART: Regular, without ectopy or murmur. ABDOMEN: Rotund. ASSESSMENT: 1. Resolving pneumonia. 2. Uncontrolled atrial fibrillation. PLAN: We will restart Lanoxin 0.125 one daily. Metoprolol 25 mg 1 p.o. b.i.d., intravenous metoprolol. Complementary of care and well being. Continue antibiotics. X-ray to be performed. /[id number] CAROL ANN/SCOTTY
[2018-01-07] MEDS: Bisacodyl 5 MG Tab PO PRN (12:35)
--- NOTE | 2018-01-07 14:49 | CT ---
INDICATION: Cough, pneumonia versus CHF. CT CHEST WITHOUT CONTRAST: Spiral 2.5 mm axial sections were obtained through the chest without contrast with sagittal and coronal reconstructions 2017. No comparison CT was available. Total exam DLP = 461.65 mGy-cm. No nodular masses are identified. There is some lobulated fluid along the posterolateral aspect of the descending thoracic aorta, which could be related to pleuritis from minimal pneumonia, there being some minimal patchy infiltration in the left lower lobe adjacent to that area. Other more ominous etiology, such as leakage of a dissection of the aorta, is less likely but difficult to entirely exclude without IV contrast. There also appears to be minimal infiltrate - possible minimal patchy pneumonia - in the middle lobe lingula and middle lobe. There is some minimal linear densities at the right lower lobe, which may represent fibrosis and/or linear atelectasis. Left lower lobe linear atelectasis of minimal degree may also be present. Despite the markedly enlarged heart, no definite evidence of CHF is identified. No significant pericardial effusion was seen. Calcifications are noted in the aorta, as well as coronary arteries. Mediastinal lymphadenopathy is moderate and could be on the basis of inflammatory disease but should be correlated clinically also. No focal mediastinal mass of any significance was identified. The lymph nodes are generally less than 1 cm in diameter with one precarinal node measuring about 14 mm. Another lymph node that is further precarinal measured approximately 10.2 mm. The descending thoracic aorta is somewhat prominent, measuring approximately 46 mm. No gallstones were demonstrated. There are two relatively high density masses noted, mostly exophytically, one off the lower middle pole posterolaterally of the left kidney, measuring 31 mm, and one measuring 19.8 mm off the anterolateral mid pole left renal cortex, also mostly exophytic. The smaller anterior lesion measured approximately 53 units on the Hounsfield scale, compared with adjacent kidney, which is approximately 30. The more inferior posterior lesion measured 52-53 on the Hounsfield scale. These lesions could represent neoplasia. Another lower middle pole posterior lesion exophytically off the left kidney cortex measured 13.3 mm with a Hounsfield unit of 32, similar to the renal parenchyma. The possibility of a neoplasm here cannot be excluded either. At the posterolateral aspect of the right kidney, mid pole, there is a 19.2 mm low density lesion, which could represent a benign lesion such as a cyst or angiomyolipoma. Multiple compression fractures are noted, one in the mid thoracic spine and several in the thoracolumbar area with vertebroplasties times three. Also noted is a dextroconcave scoliosis in the upper lumbar spine. IMPRESSION: 1. Patchy areas of infiltrate are noted, likely representing areas of mild patchy bronchopneumonia. Mediastinal lymphadenopathy is associated and may be on that basis. Localized pleural effusion at the posterolateral aspect of the descending thoracic aorta is of questionable significance, making it difficult to exclude an area of leakage due to a dissection, unable to be fully diagnosed without IV contrast. 2. ASHD with fairly marked cardiomegaly but no definite evidence of CHF. 3. Osteoporosis with compression fractures and vertebroplasties, as noted above. 4. Total shoulder arthroplasty on the right. 5. Kidney lesions, as noted above, may be neoplastic. Followup as necessary. Report was called to Dr. Jorge at 2015 hours on 01/04/2018. HUNTER
--- NOTE | 2018-01-07 14:54 | CR ---
INDICATION: Cough, shortness of breath. CHEST: A single portable AP upright view of the chest, 01/04/2018, was compared with 03/18/2017 and 08/24/2016, again revealing the heart to be enlarged and the aorta tortuous. Overlying EKG leads are noted. There is suggestion of some infiltration, suprahilar on the right and at the left lung base, compatible with areas of pneumonia. No definite evidence of CHF is seen. IMPRESSION: 1. Probable bilateral pneumonia. 2. ASHD with cardiomegaly, cannot exclude a pericardial effusion with the configuration of the heart. Report was called to Dr. Jorge at 2015 hours on 01/04/2018. MTDD
[2018-01-08] MEDS: Cefepime 2 GM Vial IVPUSH SCH (00:29)
[2018-01-08] MEDS: Sodium Chloride 0.9% 10 ML Syringe FLUSH PRN ×2 (00:36→09:33)
[2018-01-08] MEDS: methylPREDNISolone Sodium Succinate 40 MG/1 ML SDV IVPUSH SCH (05:54)
[2018-01-08] MEDS: Albuterol/Ipratropium 3.0-0.5 MG/3 ML Neb Soln NEB SCH ×4 (07:37→21:49)
[2018-01-08] MEDS: Carbidopa/Levodopa 25-250 MG Tab PO SCH ×4 (07:53→21:49)
[2018-01-08] MEDS: Ferrous Sulfate 325 MG Tab PO SCH ×3 (07:56→18:02)
[2018-01-08] MEDS: traMADol 50 MG Tab PO PRN (07:59)
[2018-01-08] MEDS: Bisacodyl 5 MG Tab PO PRN (07:59)
--- NOTE | 2018-01-08 08:02 | CR ---
INDICATION: Followup pneumonia. CHEST: PA and lateral views of the chest were obtained 01/07/2018 and compared with 01/04/2018, 03/18/2017, and 08/24/2016. The heart is again noted to be enlarged with rather tortuous aorta. The possibility of aortic aneurysm in the area of the arch of the aorta cannot be excluded with a very prominent area there. No definite evidence of CHF is seen. Some linear density at the lower lung field on the left may represent linear atelectasis and/or fibrosis. On the lateral view posteriorly, there are some linear densities in the anterior mid lung and lower lobe areas. These may represent fibrosis and possibly linear atelectasis. Some minimal patchy infiltrate may also be present, especially posteriorly; however, at the left lung base, the amount of infiltrate would appear to be decreased, compared with the previous study. The lungs appear to be somewhat hyperaerated. Osteoporotic compression mid thoracic spine and thoracolumbar area noted with vertebroplasties times three in the upper lumbar area. Total shoulder arthroplasty - reverse style - noted on the right. IMPRESSION: 1. ASHD with cardiomegaly and dilatation suggested at the arch of the aorta - cannot exclude an aneurysm or mass in that area. Aneurysm is felt to be more likely, after viewing the lateral view. 2. Areas of linear density in the mid and posterior lung most likely on the left with some thickening of the major fissure. Findings may represent residual pneumonia and pleuritis, possibly some atelectasis. No gross consolidating pneumonia or significant sized effusion could be identified with the amount of infiltrate at the left lung base appearing diminished, compared with the previous study of 01/04/2018. MTDD
[2018-01-08] MEDS: Furosemide 40 MG/4 ML VIAL IVPUSH SCH (09:33)
[2018-01-08] MEDS: Digoxin 125 MCG Tab PO SCH (09:33)
[2018-01-08] MEDS: Metoprolol Tartrate 25 MG Tab PO SCH (09:33)
[2018-01-08] MEDS: Lisinopril 2.5 MG Tab PO SCH (09:34)
[2018-01-08] MEDS ORDERED: Levofloxacin 500 MG Tab PO SCH (10:30)
[2018-01-08] MEDS: Levofloxacin 250 MG Tab PO SCH (11:20)
[2018-01-08] MEDS: Metoprolol Succinate 100 MG Tab.ER PO SCH (12:35)
--- NOTE | 2018-01-08 13:42 | PN ---
DATE SEEN: 01/08/2018 SUBJECTIVE: Rahat Reyes is an 87-year-old, male, admitted with acute respiratory distress and pneumonia. Appears clinically better. Radiographs 01/07/2018 reviewed and interpreted. Of course significant ASHD but improvement of pneumonia. He himself is feeling better. Tolerating treatment and intervention. He has been on intravenous antibiotics. We will switch to oral antibiotics. Up, ambulating, more comfortable. Microbiology, no growth in blood cultures or sputum. PHYSICAL EXAMINATION: VITAL SIGNS: 103 pulse, is much improved. Blood pressure 176/114, blood pressure 134. NECK: Benign. No JVD. CHEST: Better air exchange but there is some coarse rhonchi, right side more than left. CARDIAC: Distant heart sounds. ABDOMEN: Benign. IMPRESSION: 1. Bilateral pneumonia. 2. Underlying congestive heart failure. 3. Chronic obstructive pulmonary disease. PLAN: Medications, care and treatment as appropriate, we will discontinue intravenous antibiotics, discontinue the IV steroids, oral antibiotics, oral prednisone, complementary care and well being. Adjustment of blood pressure pills accordingly. /[id number] /SCOTTY
[2018-01-08] MEDS ORDERED: Bisacodyl 10 MG Supp RECTAL PRN (18:07)
[2018-01-08] MEDS ORDERED: Sodium Phosphate,Monobasic/Sodium Phosphate,Dibasic Enema 133 ML Bottle RECTAL PRN (18:07)
[2018-01-08] MEDS ORDERED: Aluminum Hydroxide/Magnesium Hydroxide Susp 30 ML Cup PO PRN (21:57)
[2018-01-09] MEDS: Albuterol/Ipratropium 3.0-0.5 MG/3 ML Neb Soln NEB SCH ×4 (07:21→20:06)
[2018-01-09] MEDS: Ferrous Sulfate 325 MG Tab PO SCH ×3 (07:28→17:21)
[2018-01-09] MEDS: Carbidopa/Levodopa 25-250 MG Tab PO SCH ×4 (07:28→20:06)
[2018-01-09] MEDS: predniSONE 20 MG Tab PO SCH (07:29)
[2018-01-09] MEDS: Furosemide 20 MG Tab PO SCH (08:04)
[2018-01-09] MEDS: Lisinopril 2.5 MG Tab PO SCH (08:04)
[2018-01-09] MEDS: Digoxin 125 MCG Tab PO SCH (08:04)
[2018-01-09] MEDS: Metoprolol Succinate 100 MG Tab.ER PO SCH (08:05)
[2018-01-09] MEDS: Pantoprazole 40 MG Tab.CR PO SCH (09:40)
[2018-01-09] MEDS: Levofloxacin 250 MG Tab PO SCH (09:41)
--- NOTE | 2018-01-09 10:15 | PN ---
DATE SEEN: 01/09/2018 SUBJECTIVE: Mr. Reyes is an 87-year-old male, admitted with acute respiratory distress and a complicated pneumonia. Recent film from 01/07/2018 much improved. Intermittent nausea and some heartburn problematic today. Discussed implications and concerns. OBJECTIVE: VITAL SIGNS: Stable. NECK: Benign. Thyroid small. CHEST: Clear in all lung vergara. HEART: Regular rate without ectopy or murmur. ABDOMEN: Benign. LABORATORY STUDIES: INR elevated 4.04. Microbiology, no growth blood cultures. ASSESSMENT: Resolving pneumonia, increasing pro-time. PLAN: Discussed medications interaction. Presently on levofloxacin. We will hold Coumadin in the meantime, complementary care and well being. /[id number] CAROL ANN/SCOTTY
[2018-01-09] MEDS ORDERED: Alum Hydroxide/Mag Hydroxide 15 ML, Lidocaine 2% 15 ML PO ONE ×2 (16:19)
[2018-01-10] MEDS: Pantoprazole 40 MG Tab.CR PO SCH (06:19)
[2018-01-10] MEDS: Albuterol/Ipratropium 3.0-0.5 MG/3 ML Neb Soln NEB SCH ×2 (07:25→11:17)
[2018-01-10] MEDS: Carbidopa/Levodopa 25-250 MG Tab PO SCH ×2 (08:21→11:33)
[2018-01-10] MEDS: Ferrous Sulfate 325 MG Tab PO SCH ×2 (08:21→08:26)
[2018-01-10] MEDS: Digoxin 125 MCG Tab PO SCH (08:22)
[2018-01-10] MEDS: Furosemide 20 MG Tab PO SCH (08:22)
[2018-01-10] MEDS: predniSONE 20 MG Tab PO SCH (08:22)
[2018-01-10] MEDS: Lisinopril 2.5 MG Tab PO SCH (08:22)
[2018-01-10] MEDS: Metoprolol Succinate 100 MG Tab.ER PO SCH (08:23)
[2018-01-10] MEDS: Levofloxacin 250 MG Tab PO SCH (11:30)
[2018-01-10 11:43] VITALS: BP 143/83
--- NOTE | 2018-01-10 16:39 | DISCH ---
DISCHARGE DATE: 01/10/2018 DISCHARGE DIAGNOSES: Bibasilar pneumonia with hypoxia. HISTORY OF PRESENT ILLNESS: Rahat Reyes is an 87-year-old male, resides at [facility], who was seen at [facility]. He has been seen as an outpatient, prior 2 doses of intravenous Rocephin, symptomatic treatment. Increasing respiratory difficulty, shortness of breath necessitated present hospitalization. History of atrial fibrillation, on oxygen, rate controlled. Radiographs revealed pneumonia present and available. PAST HEALTH: Significant for bilateral cataract surgery, inguinal herniorrhaphy, transurethral resection of the prostate, hip replacements, and shoulder replacement. Mild COPD; atrial fibrillation, rate controlled; and hypertension. Please see HPI. PHYSICAL EXAMINATION: VITAL SIGNS: At the time of discharge, vital signs are stable; 36.6, 95 and irregular, 165/105, and 125. GENERAL: Appears comfortable. Speech was fluent. NECK: Benign. Thyroid small. No JVD. CHEST: Decreased breath sounds, both bases, but better air exchange. HEART: Irregularly irregular at 78 at rest. ABDOMEN: Benign. EXTREMITIES: Well- perfused. NEUROMUSCULAR: Intact. DISCHARGE DIAGNOSIS: Bibasilar pneumonia. PLAN: The patient looks well, plan discharge. Cooperative care and well-being, consideration for wheelchair. Providers of record, [facility]. Antibiotics for duration of therapy. Follow up on a p.r.n. basis. /[id number] CAROL ANN/SCOTTY
== END 2018-01-10 13:35 | disposition home health service (06) | DRG 194 ==
LOC: FB.ED 16:11 → FB.MS 20:52
PROVIDERS: ADMIT Emergency Medicine; ATTEND Family Medicine
DX: J18.9 Pneumonia, unspecified organism (principal); L03.116 Cellulitis of left lower limb; H40.9 Unspecified glaucoma; I48.91 Unspecified atrial fibrillation; I48.2 Chronic atrial fibrillation; I11.0 Hypertensive heart disease with heart failure; R09.02 Hypoxemia; J44.9 Chronic obstructive pulmonary disease, unspecified; R06.03 Acute respiratory distress; R12 Heartburn; R11.0 Nausea; I25.10 Atherosclerotic heart disease of native coronary artery without angina pectoris; G89.29 Other chronic pain; M54.9 Dorsalgia, unspecified; N28.89 Other specified disorders of kidney and ureter; Z96.649 Presence of unspecified artificial hip joint; Z96.619 Presence of unspecified artificial shoulder joint; G25.81 Restless legs syndrome; D64.9 Anemia, unspecified; R50.9 Fever, unspecified; R09.3 Abnormal sputum; R53.83 Other fatigue; R00.0 Tachycardia, unspecified; R06.02 Shortness of breath; R05 Cough; R53.1 Weakness; R60.9 Edema, unspecified; L53.9 Erythematous condition, unspecified; I50.9 Heart failure, unspecified; L29.9 Pruritus, unspecified; Z88.8 Allergy status to other drugs, medicaments and biological substances; Z79.01 Long term (current) use of anticoagulants; Z86.711 Personal history of pulmonary embolism; Z85.46 Personal history of malignant neoplasm of prostate; Z96.643 Presence of artificial hip joint, bilateral; Z87.891 Personal history of nicotine dependence; Z96.612 Presence of left artificial shoulder joint; Z96.611 Presence of right artificial shoulder joint; Z96.1 Presence of intraocular lens; Z79.899 Other long term (current) drug therapy
CPT/HCPCS: 36415; 71045; 71046; 71250; 80048; 80053; 80162; 81001; 82962; 83605; 83735; 83880; 84484; 85025; 85610; 87040; 87070; 87205; 93005; 94150; 94640; 96361; 96374; 96375; 97161-GP; 97165-GO; 99285; A9270-GY; J0456; J0692; J1160; J1940; J2920; J3490; J7030; J7050; J7620

== ENCOUNTER 2018-01-24 09:42 | Inpatient (IN) | payer MEDICARE, BC ==
[2018-01-24] MEDS ORDERED: Furosemide 40 MG/4 ML VIAL IVPUSH ONE (10:42)
[2018-01-24] MEDS ORDERED: Nitroglycerin 2% Oint 1 GM UD Packet TOP ONE (10:49)
--- NOTE | 2018-01-24 10:55 | EDM.PDOC ---
ED HPI GENERAL MEDICAL PROBLEM - General Chief Complaint: General Stated Complaint: SOB- FLUID Time Seen by Provider: 01/24/18 09:45 Source of Information: Reports: Patient History Limitations: Reports: No Limitations - History of Present Illness INITIAL COMMENTS - FREE TEXT/NARRATIVE: c/o weak and sob x 1m pt in hosp 1m ago x 5d, has had weak and sob since then, saw Dr Zayas 1d ago and furosemide doubled from 20 mg daily to 40 mg daily yet more sob today, no n/v, has inc'd edema LE here with son no CP pt had CxR 1d ago in clinic and had "fluid around his heart" as per son BUN/creat 28/1.1 from 2w ago, baseline 18/1.0 BNP 14x ULN 1m ago was 2x ULN 4y ago hgb 10.3 from 3w ago last INR 2.91 from 2w ago trop 0.02 baseline 4y ago, was 0.045 2w ago and 0.078 from 1m ago dig 0.6 from 1m ago CxR 2w ago with cardiomegaly, dilated aortic arch c/w aneurysm, linear density in L lung - Related Data Allergies Allergy/AdvReac Type Severity Reaction Status Date / Time diclofenac Allergy Shortness Verified 01/04/18 16:25 of Breath promethazine Allergy Confusion Verified 01/04/18 16:25 Home Meds: Home Meds Warfarin Sodium [Jantoven] 2.5 mg PO MOWEFR 01/19/14 [History] traMADol [Ultram] 50 mg PO Q4H PRN 03/18/17 [History] Carbidopa/Levodopa [Sinemet 25-250 MG] 1 tab PO 08,12,16,20 01/04/18 [History] Celecoxib [CeleBREX] 100 mg PO DAILY PRN 01/04/18 [History] Sennosides/Docusate Sodium [Senna-S] 1 each PO DAILY 01/04/18 [History] Warfarin [Coumadin] 5 mg PO SUTUTHSA 01/04/18 [History] Diclofenac Sodium [Voltaren] 1 applic TP TID PRN 01/05/18 [History] traMADol [Ultram] 100 mg PO Q4H PRN 01/05/18 [History] Metoprolol Succinate [Toprol XL 100mg] 100 mg PO DAILY 30 Days #30 tab.er [Rx] Carbidopa/Levodopa [Sinemet 25-250 MG] 0.5 tab PO BID PRN 01/24/18 [History] Cyclobenzaprine HCl 5 mg PO BID 01/24/18 [History] Digoxin 125 mcg PO DAILY 01/24/18 [History] Furosemide [Lasix] 40 mg PO DAILY 01/24/18 [History] Pantoprazole [ProTONIX] 40 mg PO DAILY 01/24/18 [History] Past Medical History HEENT History: Reports: Cataract, Glaucoma, Other (See Below) Other HEENT History: right pseudophokia Cardiovascular History: Reports: Afib, Heart Failure Respiratory History: Reports: PE Genitourinary History: Reports: Prostate Disorder Other Genitourinary History: left kidney mass Musculoskeletal History: Reports: Back Pain, Chronic Other Musculoskeletal History: shoulder bursitis/tendonitis Neurological History: Reports: Other (See Below) Other Neuro History: restless legs Hematologic History: Reports: Anemia Oncologic (Cancer) History: Reports: Prostate Dermatologic History: Reports: Other (See Below) Other Dermatologic History: chronic itch - Infectious Disease History Infectious Disease History: Reports: Chicken Pox, Mumps - Past Surgical History HEENT Surgical History: Reports: Cataract Surgery, Other (See Below) GI Surgical History: Reports: Hernia, Inguinal Male Surgical History: Reports: Prostate Biopsy, TURP-Transurethral Resection of Prostate Musculoskeletal Surgical History: Reports: Hip Replacement, Shoulder Replacement Social & Family History - Family History Family Medical History: Noncontributory - Caffeine Use Caffeine Use: Reports: None ED ROS GENERAL - Review of Systems Review Of Systems: See Below Constitutional: Reports: No Symptoms HEENT: Reports: No Symptoms Respiratory: Reports: Shortness of Breath Cardiovascular: Reports: Edema. Denies: Chest Pain Endocrine: Reports: No Symptoms GI/Abdominal: Reports: No Symptoms : Reports: No Symptoms Musculoskeletal: Reports: No Symptoms Skin: Reports: No Symptoms Neurological: Reports: No Symptoms Psychiatric: Reports: No Symptoms Hematologic/Lymphatic: Reports: No Symptoms Immunologic: Reports: No Symptoms ED EXAM, GENERAL - Physical Exam Exam: See Below Exam Limited By: No Limitations General Appearance: Alert, WD/WN, Mild Distress, Other (mild dyspnea, mild tachypnea, [place], somewhat gruff, alert, interactive) Eye Exam: Bilateral Eye: Normal Inspection Ears: Normal External Exam Nose: Normal Inspection, Normal Mucosa, No Blood Throat/Mouth: Normal Inspection, Normal Lips, Normal Voice, No Airway Compromise Head: Atraumatic, Normocephalic Neck: Normal Inspection, Supple, Non-Tender, Full Range of Motion Respiratory/Chest: Other (rales at bases and up 20% b/l, no wheeze, no inc'd exp phase, no purse lips, no retractions, no accessory muscles) Cardiovascular: No JVD, No Rub, Other (irreg, quiet, 2/6 STORMY at LSB). No: Gallop/S3, Gallop/S4 GI/Abdominal: Normal Bowel Sounds, Soft, Non-Tender, No Distention Back Exam: Normal Inspection, Full Range of Motion, NT Extremities: Normal Inspection, Normal Range of Motion, Non-Tender, No Pedal Edema Neurological: Alert, CN II-XII Intact, Normal Cognition, No Motor/Sensory Deficits Psychiatric: Normal Affect, Normal Mood Skin Exam: Warm, Dry, Intact, Normal Color, No Rash Lymphatic: No Adenopathy Course - Orders/Labs/Meds Orders: Active Orders 24 hr Category Date Time Status CULTURE BLOOD [BC] Urgent Lab 01/24/18 10:12 Received CULTURE BLOOD [BC] Urgent Lab 01/24/18 10:19 Received UA W/MICROSCOPIC [URIN] Stat Lab 01/24/18 11:30 Ordered Blood Culture x2 Reflex Set [OM.PC] Urgent Oth 01/24/18 10:43 Ordered EKG 12 Lead [EK] Routine Ther 01/24/18 10:43 Ordered Labs: Laboratory Tests 01/24/18 01/24/18 01/24/18 Range/Units 10:12 10:12 10:12 WBC 12.7 H (4.5-12.0) X10-3/uL RBC 3.67 L (4.30-5.75) x10(6)uL Hgb 10.7 L (11.5-15.5) g/dL Hct 32.4 (30.0-51.3) % MCV 88.3 (80-96) fL MCH 29.2 (27.7-33.6) pg MCHC 33.0 (32.2-35.4) g/dL RDW 15.6 H (11.5-15.5) % Plt Count 315 (125-369) X10(3)uL MPV 8.9 (7.4-10.4) fL Neut % (Auto) 84.2 H (46-82) % Lymph % (Auto) 8.1 L (13-37) % [place] % (Auto) 6.9 (4-12) % Eos % (Auto) 1 (1.0-5.0) % Baso % (Auto) 0 (0-2) % Neut # (Auto) 10.6 H (1.6-8.3) # Lymph # (Auto) 1.0 (0.6-5.0) # [place] # (Auto) 0.9 (0.0-1.3) # Eos # (Auto) 0.1 (0.0-0.8) # Baso # (Auto) 0.0 (0.0-0.2) # PT 29.4 H (8.7-11.1) INR 3.06 H (0.89-1.13) Sodium 143 (135-145) mmol/L Potassium 5.0 D (3.5-5.3) mmol/L Chloride 105 (100-110) mmol/L Carbon Dioxide 24 (21-32) mmol/L BUN 75 H D (7-18) mg/dL Creatinine 2.5 H* (0.70-1.30) mg/dL Est Cr Clr Drug Dosing TNP Estimated GFR (MDRD) 24 L (>60) BUN/Creatinine Ratio 30.0 H (9-20) Glucose 122 H (80-116) mg/dL Lactic Acid (0.4-2.2) mmol/L Calcium 8.6 (8.6-10.2) mg/dL Total Bilirubin 0.9 (0.1-1.3) mg/dL AST 52 H D (5-25) IU/L ALT 20 D (12-36) U/L Alkaline Phosphatase 120 H (56-112) IU/L Troponin I (<0.017-0.056) ng/mL C-Reactive Protein (0.5-0.9) mg/dL NT-Pro-B Natriuret Pep (<=450) pg/mL Total Protein 6.5 (6.0-8.0) g/dL Albumin 3.4 (2.9-4.5) g/dL Globulin 3.1 g/dL Albumin/Globulin Ratio 1.1 Urine Color (YELLOW) Urine Appearance (CLEAR) Urine pH (5.0-6.5) Ur Specific [place] (1.010-1.025) Urine Protein (NEGATIVE) mg/dL Urine Glucose (UA) (NEGATIVE) mg/dL Urine Ketones (NEGATIVE) mg/dL Urine Occult Blood (NEGATIVE) Urine Nitrite (NEGATIVE) Urine Bilirubin (NEGATIVE) Urine Urobilinogen (NEGATIVE) mg/dL Ur Leukocyte Esterase (NEGATIVE) Urine RBC (0) Urine WBC (0) Ur Squamous Epith Cells (NS,R,O) Urine Bacteria (NS) 01/24/18 01/24/18 01/24/18 Range/Units 10:12 10:12 11:30 WBC (4.5-12.0) X10-3/uL RBC (4.30-5.75) x10(6)uL Hgb (11.5-15.5) g/dL Hct (30.0-51.3) % MCV (80-96) fL MCH (27.7-33.6) pg MCHC (32.2-35.4) g/dL RDW (11.5-15.5) % Plt Count (125-369) X10(3)uL MPV (7.4-10.4) fL Neut % (Auto) (46-82) % Lymph % (Auto) (13-37) % [place] % (Auto) (4-12) % Eos % (Auto) (1.0-5.0) % Baso % (Auto) (0-2) % Neut # (Auto) (1.6-8.3) # Lymph # (Auto) (0.6-5.0) # [place] # (Auto) (0.0-1.3) # Eos # (Auto) (0.0-0.8) # Baso # (Auto) (0.0-0.2) # PT (8.7-11.1) INR (0.89-1.13) Sodium (135-145) mmol/L Potassium (3.5-5.3) mmol/L Chloride (100-110) mmol/L Carbon Dioxide (21-32) mmol/L BUN (7-18) mg/dL Creatinine (0.70-1.30) mg/dL Est Cr Clr Drug Dosing Estimated GFR (MDRD) (>60) BUN/Creatinine Ratio (9-20) Glucose (80-116) mg/dL Lactic Acid 2.9 H (0.4-2.2) mmol/L Calcium (8.6-10.2) mg/dL Total Bilirubin (0.1-1.3) mg/dL AST (5-25) IU/L ALT (12-36) U/L Alkaline Phosphatase (56-112) IU/L Troponin I 0.043 (<0.017-0.056) ng/mL C-Reactive Protein 2.8 H* (0.5-0.9) mg/dL NT-Pro-B Natriuret Pep 18660 H* (<=450) pg/mL Total Protein (6.0-8.0) g/dL Albumin (2.9-4.5) g/dL Globulin g/dL Albumin/Globulin Ratio Urine Color Yellow (YELLOW) Urine Appearance Clear (CLEAR) Urine pH 5.0 (5.0-6.5) Ur Specific [place] 1.015 (1.010-1.025) Urine Protein Negative (NEGATIVE) mg/dL Urine Glucose (UA) Normal (NEGATIVE) mg/dL Urine Ketones Negative (NEGATIVE) mg/dL Urine Occult Blood Negative (NEGATIVE) Urine Nitrite Negative (NEGATIVE) Urine Bilirubin Negative (NEGATIVE) Urine Urobilinogen Normal (NEGATIVE) mg/dL Ur Leukocyte Esterase Negative (NEGATIVE) Urine RBC 0-5 (0) Urine WBC 0-5 (0) Ur Squamous Epith Cells Moderate H (NS,R,O) Urine Bacteria Few H (NS) Meds: Medications Discontinued Medications Generic Name Dose Route Start Last Admin Trade Name Freq PRN Reason Stop Dose Admin Furosemide 40 mg 01/24/18 10:42 01/24/18 11:03 Lasix IVPUSH 01/24/18 10:43 40 mg NOW ONE Administration Nitroglycerin 1 gm 01/24/18 10:49 01/24/18 11:04 Nitro-Bid 2% TOP 01/24/18 10:50 1 gm ONETIME ONE Administration - Re-Assessments/Exams Free Text/Narrative Re-Assessment/Exam: 01/24/18 13:32 BNP now 36,212 and nearly 80x ULN, previously 14x ULN one month ago CxR with no definite change or infiltrate c/w 2w ago, however it is a 1 view, reviewed by Dr Moreirat does have WBC 12.7 with 84.2% segs and lactic acid 2.9 and CRP 2.8. u/a neg. will give levo 500 mg IV as initial dose for possible sepsis altho DBP elevated (not decreased), d/w Dr Shelton BUN/creat 75/2.5 and much inc'd from 16/09.1 from 2w ago d/w Dr Shelton who accepted pt in admission Departure - Departure Time of Disposition: 13:45 Disposition: Admitted As Inpatient 64 Condition: Fair Clinical Impression: Acute on chronic renal failure, Sepsis, Lactic acidosis, Elevated liver function tests, Chronic passive congestion of liver, Aneurysm, thoracic aortic Acute exacerbation of congestive heart failure Qualifiers: Heart failure type: unspecified Qualified Code(s): I50.9 - Heart failure, unspecified - Discharge Information - My Orders Last 24 Hours: My Active Orders 01/24/18 10:12 CULTURE BLOOD [BC] Urgent 01/24/18 10:19 CULTURE BLOOD [BC] Urgent 01/24/18 10:43 Blood Culture x2 Reflex Set [OM.PC] Urgent EKG 12 Lead [EK] Routine 01/24/18 11:30 UA W/MICROSCOPIC [URIN] Stat - Assessment/Plan Last 24 Hours: My Active Orders 01/24/18 10:12 CULTURE BLOOD [BC] Urgent 01/24/18 10:19 CULTURE BLOOD [BC] Urgent 01/24/18 10:43 Blood Culture x2 Reflex Set [OM.PC] Urgent EKG 12 Lead [EK] Routine 01/24/18 11:30 UA W/MICROSCOPIC [URIN] Stat
--- NOTE | 2018-01-24 13:14 | CR ---
INDICATION: Short of breath. CHEST: An AP upright view of the chest was obtained 01/24/2018 and compared with 01/07/2018 and 01/04/2018 and again revealed the heart to be enlarged. The aorta is tortuous with calcification in the arch. Overlying EKG leads are noted. A definite active infiltrate or effusion was not identified. IMPRESSION: No acute process. Full inspiration PA and lateral views of the chest recommended when clinically possible for further evaluation. MTDD
[2018-01-24] MEDS ORDERED: Levofloxacin/Dextrose 5%-Water 500 MG in Premix Bag 1 BAG IV ONE (13:42)
--- NOTE | 2018-01-24 16:31 | PCM.HP ---
H&P History of Present Illness - General Date of Service: 01/24/18 Admit Problem/Dx: Admission Diagnosis/Problem Admission Diagnosis/Problem Heart failure Source of Information: Patient, Old Records, Provider - History of Present Illness Initial Comments - Free Text/Narative: Patient is an 87-year-old male who was admitted in December 2017 to our facility for congestive heart failure acute exacerbation/question of pneumonia. He was discharged home on increased lasix and yesterday went into the clinic to see his primary care provider because he was more weak, played out, short of breath. His Lasix was increased to 80 mg twice a day but he was more awake this morning and so he and his son came into the emergency department. He hasn't had any cough, no phlegm, he feels short of breath but it's more of being just completely winded and played out with any exertion. He just feels exhausted and can't hardly do his activities of daily living. He hasn't had any chest pain. No nausea or vomiting. Constipation well controlled. No fevers or chills, no sweats. She hasn't felt well but it's more malaise then symptoms of illness. Continues to urinate but urine has been quite dark. His edema in his lower extremities is less than it has been for quite some time. Feels a little dizzy at times. Feels like when he tries to do anything his heart starts racing. Past medical history: Prostate cancer Chronic atrial fibrillation currently anticoagulated History of PE in the remote past. Congestive heart failure with no echocardiogram that I can find in the clinic chart since 2012. 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 Osteoarthritis and history of hip joint replacement with dislocation, back pain. History of compression fracture of the first lumbar vertebra and thoracic vertebrae status post vertebral plasty History of glaucoma, cataracts. Social history: Never smoked, no alcohol use, lives at [facility]. Lives with his . Has 2 children his son who was here earlier with him today and a daughter who lives in [place]. Family history: Patient's father of gas poisoning and the patient's mother at 89 of old age. She had congestive heart failure. generalized Pain Score (Numeric/FACES): 5 - Related Data Allergies/Adverse Reactions: Allergies Allergy/AdvReac Type Severity Reaction Status Date / Time diclofenac Allergy Shortness Verified 01/24/18 14:55 of Breath promethazine Allergy Confusion Verified 01/24/18 14:55 Home Medications: Home Meds Warfarin Sodium [Jantoven] 2.5 mg PO MOWEFR 01/19/14 [History] traMADol [Ultram] 50 mg PO Q4H PRN 03/18/17 [History] Carbidopa/Levodopa [Sinemet 25-250 MG] 1 tab PO 08,12,16,20 01/04/18 [History] Celecoxib [CeleBREX] 100 mg PO DAILY PRN 01/04/18 [History] Sennosides/Docusate Sodium [Senna-S] 1 each PO DAILY 01/04/18 [History] Warfarin [Coumadin] 5 mg PO SUTUTHSA 01/04/18 [History] Diclofenac Sodium [Voltaren] 1 applic TP TID PRN 01/05/18 [History] traMADol [Ultram] 100 mg PO Q4H PRN 01/05/18 [History] Metoprolol Succinate [Toprol XL 100mg] 100 mg PO DAILY 30 Days #30 tab.er [Rx] Carbidopa/Levodopa [Sinemet 25-250 MG] 0.5 tab PO BID PRN 01/24/18 [History] Cyclobenzaprine HCl 5 mg PO BID 01/24/18 [History] Digoxin 125 mcg PO DAILY 01/24/18 [History] Furosemide [Lasix] 40 mg PO DAILY 01/24/18 [History] Pantoprazole [ProTONIX] 40 mg PO DAILY 01/24/18 [History] Past Medical History HEENT History: Reports: Cataract, Glaucoma, Other (See Below) Other HEENT History: right pseudophokia Cardiovascular History: Reports: Afib, Heart Failure Respiratory History: Reports: PE Genitourinary History: Reports: Prostate Disorder Other Genitourinary History: left kidney mass Musculoskeletal History: Reports: Back Pain, Chronic Other Musculoskeletal History: shoulder bursitis/tendonitis Neurological History: Reports: Other (See Below) Other Neuro History: restless legs Hematologic History: Reports: Anemia Oncologic (Cancer) History: Reports: Prostate Dermatologic History: Reports: Other (See Below) Other Dermatologic History: chronic itch - Infectious Disease History Infectious Disease History: Reports: Chicken Pox, Mumps - Past Surgical History HEENT Surgical History: Reports: Cataract Surgery, Other (See Below) GI Surgical History: Reports: Hernia, Inguinal Male Surgical History: Reports: Prostate Biopsy, TURP-Transurethral Resection of Prostate Musculoskeletal Surgical History: Reports: Hip Replacement, Shoulder Replacement Social & Family History - Family History Family Medical History: Noncontributory - Tobacco Use Smoking Status *Q: Never Smoker - Caffeine Use Caffeine Use: Reports: None - Recreational Drug Use Recreational Drug Use: No H&P Review of Systems - Review of Systems: Review Of Systems: ROS reveals no pertinent complaints other than HPI. Exam - Exam Exam: See Below - Vital Signs Vital Signs: Last Vital Signs Temp 36.6 C 01/24/18 12:00 Pulse 102 H 01/24/18 12:00 Resp 22 H 01/24/18 11:30 BP 152/102 H 01/24/18 12:00 Pulse Ox 97 01/24/18 12:00 Weight: 68.039 kg - Exam General: Alert, Oriented, Cooperative HEENT: PERRLA, Conjunctiva Clear, Posterior Pharynx Clear, Other (MM dry.) Neck: Supple, Trachea Midline Lungs: Clear to Auscultation, Normal Respiratory Effort Cardiovascular: Irregular Rhythm, Tachycardia GI/Abdominal Exam: Normal Bowel Sounds, Soft, Non-Tender, No Distention Extremities: Pedal Edema (Trace pedal edema, which the patient notes is much better than his baseline.) Psychiatric: Alert, Normal Affect, Normal Mood - Patient Data Lab Results Last 24 hrs: Laboratory Results - last 24 hr 01/24/18 01/24/18 01/24/18 Range/Units 10:12 10:12 10:12 WBC 12.7 H (4.5-12.0) X10-3/uL RBC 3.67 L (4.30-5.75) x10(6)uL Hgb 10.7 L (11.5-15.5) g/dL Hct 32.4 (30.0-51.3) % MCV 88.3 (80-96) fL MCH 29.2 (27.7-33.6) pg MCHC 33.0 (32.2-35.4) g/dL RDW 15.6 H (11.5-15.5) % Plt Count 315 (125-369) X10(3)uL MPV 8.9 (7.4-10.4) fL Neut % (Auto) 84.2 H (46-82) % Lymph % (Auto) 8.1 L (13-37) % [place] % (Auto) 6.9 (4-12) % Eos % (Auto) 1 (1.0-5.0) % Baso % (Auto) 0 (0-2) % Neut # (Auto) 10.6 H (1.6-8.3) # Lymph # (Auto) 1.0 (0.6-5.0) # [place] # (Auto) 0.9 (0.0-1.3) # Eos # (Auto) 0.1 (0.0-0.8) # Baso # (Auto) 0.0 (0.0-0.2) # PT 29.4 H (8.7-11.1) INR 3.06 H (0.89-1.13) Sodium 143 (135-145) mmol/L Potassium 5.0 D (3.5-5.3) mmol/L Chloride 105 (100-110) mmol/L Carbon Dioxide 24 (21-32) mmol/L BUN 75 H D (7-18) mg/dL Creatinine 2.5 H* (0.70-1.30) mg/dL Est Cr Clr Drug Dosing TNP Estimated GFR (MDRD) 24 L (>60) BUN/Creatinine Ratio 30.0 H (9-20) Glucose 122 H (80-116) mg/dL Lactic Acid (0.4-2.2) mmol/L Calcium 8.6 (8.6-10.2) mg/dL Total Bilirubin 0.9 (0.1-1.3) mg/dL AST 52 H D (5-25) IU/L ALT 20 D (12-36) U/L Alkaline Phosphatase 120 H (56-112) IU/L Troponin I (<0.017-0.056) ng/mL C-Reactive Protein (0.5-0.9) mg/dL NT-Pro-B Natriuret Pep (<=450) pg/mL Total Protein 6.5 (6.0-8.0) g/dL Albumin 3.4 (2.9-4.5) g/dL Globulin 3.1 g/dL Albumin/Globulin Ratio 1.1 Urine Color (YELLOW) Urine Appearance (CLEAR) Urine pH (5.0-6.5) Ur Specific [place] (1.010-1.025) Urine Protein (NEGATIVE) mg/dL Urine Glucose (UA) (NEGATIVE) mg/dL Urine Ketones (NEGATIVE) mg/dL Urine Occult Blood (NEGATIVE) Urine Nitrite (NEGATIVE) Urine Bilirubin (NEGATIVE) Urine Urobilinogen (NEGATIVE) mg/dL Ur Leukocyte Esterase (NEGATIVE) Urine RBC (0) Urine WBC (0) Ur Squamous Epith Cells (NS,R,O) Urine Bacteria (NS) 01/24/18 01/24/18 01/24/18 Range/Units 10:12 10:12 11:30 WBC (4.5-12.0) X10-3/uL RBC (4.30-5.75) x10(6)uL Hgb (11.5-15.5) g/dL Hct (30.0-51.3) % MCV (80-96) fL MCH (27.7-33.6) pg MCHC (32.2-35.4) g/dL RDW (11.5-15.5) % Plt Count (125-369) X10(3)uL MPV (7.4-10.4) fL Neut % (Auto) (46-82) % Lymph % (Auto) (13-37) % [place] % (Auto) (4-12) % Eos % (Auto) (1.0-5.0) % Baso % (Auto) (0-2) % Neut # (Auto) (1.6-8.3) # Lymph # (Auto) (0.6-5.0) # [place] # (Auto) (0.0-1.3) # Eos # (Auto) (0.0-0.8) # Baso # (Auto) (0.0-0.2) # PT (8.7-11.1) INR (0.89-1.13) Sodium (135-145) mmol/L Potassium (3.5-5.3) mmol/L Chloride (100-110) mmol/L Carbon Dioxide (21-32) mmol/L BUN (7-18) mg/dL Creatinine (0.70-1.30) mg/dL Est Cr Clr Drug Dosing Estimated GFR (MDRD) (>60) BUN/Creatinine Ratio (9-20) Glucose (80-116) mg/dL Lactic Acid 2.9 H (0.4-2.2) mmol/L Calcium (8.6-10.2) mg/dL Total Bilirubin (0.1-1.3) mg/dL AST (5-25) IU/L ALT (12-36) U/L Alkaline Phosphatase (56-112) IU/L Troponin I 0.043 (<0.017-0.056) ng/mL C-Reactive Protein 2.8 H* (0.5-0.9) mg/dL NT-Pro-B Natriuret Pep 61744 H* (<=450) pg/mL Total Protein (6.0-8.0) g/dL Albumin (2.9-4.5) g/dL Globulin g/dL Albumin/Globulin Ratio Urine Color Yellow (YELLOW) Urine Appearance Clear (CLEAR) Urine pH 5.0 (5.0-6.5) Ur Specific [place] 1.015 (1.010-1.025) Urine Protein Negative (NEGATIVE) mg/dL Urine Glucose (UA) Normal (NEGATIVE) mg/dL Urine Ketones Negative (NEGATIVE) mg/dL Urine Occult Blood Negative (NEGATIVE) Urine Nitrite Negative (NEGATIVE) Urine Bilirubin Negative (NEGATIVE) Urine Urobilinogen Normal (NEGATIVE) mg/dL Ur Leukocyte Esterase Negative (NEGATIVE) Urine RBC 0-5 (0) Urine WBC 0-5 (0) Ur Squamous Epith Cells Moderate H (NS,R,O) Urine Bacteria Few H (NS) Result Diagrams: 01/24/18 10:12 01/24/18 10:12 - Problem List (1) Acute kidney injury superimposed on chronic kidney disease SNOMED Code(s): 30024257 ICD Code: N17.9 - ACUTE KIDNEY FAILURE, UNSPECIFIED; N18.9 - CHRONIC KIDNEY DISEASE, UNSPECIFIED Status: Acute Current Visit: Yes Problem Details: Patient's baseline creatinine is 1.04 and on discharge from the hospital was 1.1. I suspect this patient has been over diuresed and the resultant acute kidney injury is secondary to intravascular volume contraction. We'll start IV fluids with normal saline at 50 mL an hour and run this very slowly to prevent fluid overload and to allow for close monitoring. Recheck creatinine in a.m. (2) CHF exacerbation SNOMED Code(s): 88025675 ICD Code: I50.9 - HEART FAILURE, UNSPECIFIED Status: Acute Current Visit : Yes Problem Details: Due to volume contraction and hypovolemia. Slow fluids and monitor for signs of fluid overload. Qualifiers: Heart failure type: unspecified Qualified Code(s): I50.9 - Heart failure, unspecified (3) Atrial fibrillation with RVR SNOMED Code(s): 983877845417604 ICD Code: I48.91 - UNSPECIFIED ATRIAL FIBRILLATION Status: Acute Current Visit: No Problem Details: Secondary to volume contraction. I expect that the patient's heart rate will decline with appropriate fluids. Telemetry. (4) HTN, Benign essential hypertension SNOMED Code(s): 9732038 ICD Code: I10 - ESSENTIAL (PRIMARY) HYPERTENSION Status: Chronic Current Visit: No Problem Details: Continue home meds. (5) RLS (restless legs syndrome) SNOMED Code(s): 48058670 ICD Code: G25.81 - RESTLESS LEGS SYNDROME Status: Acute Current Visit: Yes Problem Details: Continue home meds. (6) History of urinary retention SNOMED Code(s): 478416583 ICD Code: Z87.898 - PERSONAL HISTORY OF OTHER SPECIFIED CONDITIONS Status: Acute Current Visit: Yes Problem Details: Monitor closely for retention as possible contributing factor to TE. (7) technician terminal and repeater (current) use of anticoagulants SNOMED Code(s): 120941616 ICD Code: Z79.01 - SNF (CURRENT) USE OF ANTICOAGULANTS Status: Acute Current Visit: No Problem Details: Secondary to A fib and Hx PE. Hold today's dose as slightly supratherapeutic and resume tomorrow. Pharmacy to dose. Problem List Initiated/Reviewed/Updated: Yes Orders Last 24hrs: Active Orders 24 hr Category Date Time Status Admission Status [Patient Status] [ADT] Routine ADT 01/24/18 12:38 Active CULTURE BLOOD [BC] Urgent Lab 01/24/18 10:12 Received CULTURE BLOOD [BC] Urgent Lab 01/24/18 10:19 Received UA W/MICROSCOPIC [URIN] Stat Lab 01/24/18 11:30 Ordered Blood Culture x2 Reflex Set [OM.PC] Urgent Oth 01/24/18 10:43 Ordered EKG 12 Lead [EK] Routine Ther 01/24/18 10:43 Ordered Assessment/Plan Comment:: Discussed CODE STATUS at length with the patient. Initially when asked if he would want attempts to bring him back to life if his heart were to stop beating , if in essence he were to , the patient said I could try one time but that was it. Discussed with him that it's really an all or nothing. We either need to do full resuscitation attempts or not attempt resuscitation. At that point the patient said he has had a good life and he and his love the Lord and are ready to go home. He would not want CPR done, no electric shocks, no medications given, no chest compressions. When asked about short-term intubation for a pneumonia or other condition where we might need to hook him to a ventilator, he said he would not want to be hooked to any machines to breathe for him even if it meant he would . Thus patient is DNR/DNI.
[2018-01-24] MEDS ORDERED: traMADol 50 MG Tab PO PRN ×2 (16:37)
[2018-01-24] MEDS ORDERED: Celecoxib 100 MG Cap PO PRN (16:37)
[2018-01-24] MEDS ORDERED: Diclofenac Sodium 1% Gel 100 GM Tube TOP PRN (16:37)
[2018-01-24] MEDS ORDERED: Acetaminophen 325 MG Tab PO PRN (16:39)
[2018-01-24] MEDS ORDERED: Polyethylene Glycol 3350 Powder 17 GM Packet PO PRN (16:45)
[2018-01-24] MEDS ORDERED: Sodium Chloride 0.9% 1,000 ML IV SCH (17:45)
[2018-01-24] MEDS: Carbidopa/Levodopa 25-250 MG Tab PO PRN (19:03)
[2018-01-24] MEDS: Sodium Chloride 0.9% 10 ML Syringe FLUSH PRN (19:03)
[2018-01-24] MEDS: Carbidopa/Levodopa 25-250 MG Tab PO SCH (20:52)
[2018-01-25] MEDS ORDERED: Furosemide 40 MG/4 ML VIAL IVPUSH ONE ×2 (01:23→11:41)
[2018-01-25] MEDS ORDERED: Lidocaine 2% Jelly 5 ML Urojet MUCMEM ONE (01:39)
[2018-01-25] MEDS ORDERED: Nitroglycerin 2% Oint 1 GM UD Packet TOP ONE (01:39)
[2018-01-25] MEDS: Sodium Chloride 0.9% 10 ML Syringe FLUSH PRN (02:28)
[2018-01-25] MEDS: Carbidopa/Levodopa 25-250 MG Tab PO PRN (04:42)
[2018-01-25] MEDS ORDERED: Warfarin Sliding Scale PO SCH (07:45)
[2018-01-25] MEDS: Digoxin 125 MCG Tab PO SCH (09:00)
[2018-01-25] MEDS ORDERED: Metoprolol Succinate 100 MG Tab.ER PO SCH (09:00)
[2018-01-25] MEDS: Carbidopa/Levodopa 25-250 MG Tab PO SCH ×4 (09:00→20:43)
[2018-01-25] MEDS ORDERED: Metoprolol Tartrate 25 MG Tab PO SCH (09:00)
[2018-01-25] MEDS: Pantoprazole 40 MG Tab.CR PO SCH (09:00)
[2018-01-25] MEDS ORDERED: LORazepam 0.5 MG Tab PO PRN (10:28)
[2018-01-25] MEDS ORDERED: Metoprolol Tartrate 25 MG Tab PO ONE (10:50)
--- NOTE | 2018-01-25 11:46 | PCM.PN ---
- General Info Date of Service: 01/25/18 Admission Dx/Problem (Free Text): Patient states he feels short of breath when he walks evenly sitting. He is weak. He has no chest pain. He says had some leg swelling but that's improved. No coughing, wheezing, fevers or chills. Leg swelling improved today. - Patient Data Vitals - Most Recent: Last Vital Signs Temp 97.5 F 01/25/18 07:20 Pulse 120 H 01/25/18 10:57 Resp 20 01/25/18 10:10 BP 157/115 H 01/25/18 10:57 Pulse Ox 97 01/25/18 10:10 Weight - Most Recent: 155 lb 12.8 oz I&O - Last 24 Hours: Intake & Output 01/24/18 01/25/18 01/25/18 22:59 06:59 14:59 Intake Total 290 206 Output Total 100 1650 Balance 190 -1444 Lab Results Last 24 Hours: Laboratory Results - last 24 hr 01/25/18 01/25/18 01/25/18 Range/Units 06:27 06:27 08:45 WBC 11.2 (4.5-12.0) X10-3/uL RBC 3.59 L (4.30-5.75) x10(6)uL Hgb 10.4 L (11.5-15.5) g/dL Hct 31.4 (30.0-51.3) % MCV 87.5 (80-96) fL MCH 29.0 (27.7-33.6) pg MCHC 33.2 (32.2-35.4) g/dL RDW 15.5 (11.5-15.5) % Plt Count 273 (125-369) X10(3)uL MPV 8.8 (7.4-10.4) fL Neut % (Auto) 77.0 (46-82) % Lymph % (Auto) 13.9 (13-37) % [place] % (Auto) 7.0 (4-12) % Eos % (Auto) 2 (1.0-5.0) % Baso % (Auto) 0 (0-2) % Neut # (Auto) 8.6 H (1.6-8.3) # Lymph # (Auto) 1.6 (0.6-5.0) # [place] # (Auto) 0.8 (0.0-1.3) # Eos # (Auto) 0.2 (0.0-0.8) # Baso # (Auto) 0.0 (0.0-0.2) # PT 30.4 H (8.7-11.1) INR 3.17 H (0.89-1.13) Sodium 143 (135-145) mmol/L Potassium 4.2 (3.5-5.3) mmol/L Chloride 106 (100-110) mmol/L Carbon Dioxide 28 (21-32) mmol/L BUN 72 H (7-18) mg/dL Creatinine 2.4 H* (0.70-1.30) mg/dL Est Cr Clr Drug Dosing 20.08 mL/min Estimated GFR (MDRD) 26 L (>60) BUN/Creatinine Ratio 30.0 H (9-20) Glucose 111 (80-116) mg/dL Calcium 8.4 L (8.6-10.2) mg/dL Total Bilirubin 0.8 (0.1-1.3) mg/dL AST 40 H D (5-25) IU/L ALT 16 D (12-36) U/L Alkaline Phosphatase 111 (56-112) IU/L Troponin I (<0.017-0.056) ng/mL Total Protein 5.9 L (6.0-8.0) g/dL Albumin 3.0 (2.9-4.5) g/dL Globulin 2.9 g/dL Albumin/Globulin Ratio 1.0 //18 Range/Units 10:56 WBC (4.5-12.0) X10-3/uL RBC (4.30-5.75) x10(6)uL Hgb (11.5-15.5) g/dL Hct (30.0-51.3) % MCV (80-96) fL MCH (27.7-33.6) pg MCHC (32.2-35.4) g/dL RDW (11.5-15.5) % Plt Count (125-369) X10(3)uL MPV (7.4-10.4) fL Neut % (Auto) (46-82) % Lymph % (Auto) (13-37) % [place] % (Auto) (4-12) % Eos % (Auto) (1.0-5.0) % Baso % (Auto) (0-2) % Neut # (Auto) (1.6-8.3) # Lymph # (Auto) (0.6-5.0) # [place] # (Auto) (0.0-1.3) # Eos # (Auto) (0.0-0.8) # Baso # (Auto) (0.0-0.2) # PT (8.7-11.1) INR (0.89-1.13) Sodium (135-145) mmol/L Potassium (3.5-5.3) mmol/L Chloride (100-110) mmol/L Carbon Dioxide (21-32) mmol/L BUN (7-18) mg/dL Creatinine (0.70-1.30) mg/dL Est Cr Clr Drug Dosing mL/min Estimated GFR (MDRD) (>60) BUN/Creatinine Ratio (9-20) Glucose (80-116) mg/dL Calcium (8.6-10.2) mg/dL Total Bilirubin (0.1-1.3) mg/dL AST (5-25) IU/L ALT (12-36) U/L Alkaline Phosphatase (56-112) IU/L Troponin I 0.045 (<0.017-0.056) ng/mL Total Protein (6.0-8.0) g/dL Albumin (2.9-4.5) g/dL Globulin g/dL Albumin/Globulin Ratio Naresh Results Last 24 Hours: Microbiology 01/24/18 10:19 Aerobic Blood Culture - Preliminary Blood - Venous - Lab Draw NO GROWTH AFTER 1 DAY Anaerobic Blood Culture - Preliminary NO GROWTH AFTER 1 DAY 01/24/18 10:12 Aerobic Blood Culture - Preliminary Blood - Venous NO GROWTH AFTER 1 DAY Anaerobic Blood Culture - Preliminary NO GROWTH AFTER 1 DAY Med Orders - Current: Current Medications Acetaminophen (Tylenol) 650 mg PO Q4H PRN PRN Reason: Pain (Mild 1-3)/fever Carbidopa/Levodopa (Sinemet 25-250 Mg) 0.5 tab PO BID PRN PRN Reason: RESTLESS LEGS Last Admin: 01/25/18 04:42 Dose: 0.5 tab Carbidopa/Levodopa (Sinemet 25-250 Mg) 1 tab PO 08,12,16,20 [facility] Last Admin: 01/25/18 09:00 Dose: 1 tab Celecoxib (Celebrex) 100 mg PO DAILY PRN PRN Reason: Pain Diclofenac Sodium (Voltaren 1% Gel) 0 gm TOP TID PRN PRN Reason: Pain Digoxin (Lanoxin) 125 mcg PO DAILY [facility] Last Admin: 01/25/18 09:00 Dose: 125 mcg Furosemide (Lasix) 40 mg IVPUSH NOW ONE Stop: 01/25/18 11:42 Lorazepam (Ativan) 0.5 mg PO Q6H PRN PRN Reason: Anxiety Last Admin: 01/25/18 10:47 Dose: 0.5 mg Metoprolol Tartrate (Lopressor) 75 mg PO Q12H [facility] Last Admin: 01/25/18 09:12 Dose: 75 mg Pantoprazole Sodium (Protonix) 40 mg PO DAILY [facility] Last Admin: 01/25/18 09:00 Dose: 40 mg Polyethylene Glycol (Miralax) 17 gm PO DAILY PRN PRN Reason: Constipation Senna/Docusate Sodium (Senna Plus) 1 tab PO DAILY [facility] Last Admin: 01/25/18 09:00 Dose: 1 tab Sodium Chloride (Saline Flush) 10 ml FLUSH ASDIRECTED PRN PRN Reason: Keep Vein Open Last Admin: 01/25/18 02:28 Dose: 10 ml Tramadol HCl (Ultram) 100 mg PO Q4H PRN PRN Reason: Pain (severe 7-10) Tramadol HCl (Ultram) 50 mg PO Q4H PRN PRN Reason: Pain (moderate 4-6) Warfarin Sodium (Coumadin) 2.5 mg PO MoWeFr@1600 [facility] Warfarin Sodium (Coumadin) 5 mg PO SuTuThSa@1600 [facility] Warfarin Sodium (Coumadin Sliding Scale) 1 each PO ASDIRECTED [facility] Discontinued Medications Furosemide (Lasix) 40 mg IVPUSH NOW ONE Stop: 01/24/18 10:43 Last Admin: 01/24/18 11:03 Dose: 40 mg Furosemide (Lasix) 40 mg IVPUSH NOW ONE Stop: 01/25/18 01:24 Last Admin: 01/25/18 02:22 Dose: 40 mg Levofloxacin/Dextrose 500 mg/ (Premix) 100 mls @ 100 mls/hr IV ONETIME ONE Stop: 01/24/18 14:41 Last Admin: 01/24/18 14:42 Dose: 100 mls/hr Sodium Chloride (Normal Saline) 1,000 mls @ 50 mls/hr IV ASDIRECTED [facility] Last Admin: 01/24/18 18:19 Dose: 50 mls/hr Lidocaine HCl (Xylocaine 2% Jelly) 5 ml MUCMEM ONETIME ONE Stop: 01/25/18 01:40 Last Admin: 01/25/18 01:58 Dose: 5 ml Metoprolol Succinate (Toprol Xl) 100 mg PO DAILY [facility] Metoprolol Tartrate (Lopressor) 25 mg PO ONETIME ONE Stop: 01/25/18 10:51 Last Admin: 01/25/18 10:57 Dose: 25 mg Nitroglycerin (Nitro-Bid 2%) 1 gm TOP ONETIME ONE Stop: 01/24/18 10:50 Last Admin: 01/24/18 11:04 Dose: 1 gm Nitroglycerin (Nitro-Bid 2%) 1 gm TOP ONETIME ONE Stop: 01/25/18 01:40 Last Admin: 01/25/18 02:20 Dose: 1 gm - Exam General: Alert, Oriented, Cooperative Neck: Supple Lungs: Normal Respiratory Effort, Decreased Breath Sounds, Crackles, Rales Cardiovascular: Regular Rate, Irregular Rhythm. No: Murmurs Extremities: No Pedal Edema - Problem List & Annotations (1) Palliative care status SNOMED Code(s): 000772944 Code(s): Z51.5 - ENCOUNTER FOR PALLIATIVE CARE Status: Acute Current Visit: Yes (2) Acute on chronic renal failure SNOMED Code(s): 406885210 Code(s): N17.9 - ACUTE KIDNEY FAILURE, UNSPECIFIED; N18.9 - CHRONIC KIDNEY DISEASE, UNSPECIFIED Status: Acute Current Visit: Yes (3) CHF exacerbation SNOMED Code(s): 09077325 Code(s): I50.9 - HEART FAILURE, UNSPECIFIED Status: Acute Current Visit: Yes Qualifiers: Heart failure type: unspecified Qualified Code(s): I50.9 - Heart failure, unspecified Annotation/Comment:: Due to volume contraction and hypovolemia. Slow fluids and monitor for signs of fluid overload. (4) Atrial fibrillation with RVR SNOMED Code(s): 961241731065353 Code(s): I48.91 - UNSPECIFIED ATRIAL FIBRILLATION Status: Acute Current Visit: No Annotation/Comment:: Secondary to volume contraction. I expect that the patient's heart rate will decline with appropriate fluids. Telemetry. (5) HTN, Benign essential hypertension SNOMED Code(s): 8430094 Code(s): I10 - ESSENTIAL (PRIMARY) HYPERTENSION Status: Chronic Current Visit: No Annotation/Comment:: Continue home meds. - Problem List Review Problem List Initiated/Reviewed/Updated: Yes - My Orders Last 24 Hours: My Active Orders 01/25/18 08:49 DC Harris Catheter [Urinary Catheter Removal] [RC] Per Unit Routine 01/25/18 09:00 Metoprolol Tartrate [Lopressor] 75 mg PO Q12H 01/25/18 10:28 LORazepam [Ativan] 0.5 mg PO Q6H PRN 01/25/18 10:49 EKG Documentation Completion [RC] ASDIRECTED EKG 12 Lead [EK] Stat 01/25/18 11:41 Furosemide [Lasix] 40 mg IVPUSH NOW ONE - Plan Plan:: 1. Increase metoprolol for his A. fib. 2. 40 mg IV Lasix 1 3. Check EKG and troponin. 4. DC Harris catheterPalliative care status. 5. PT/OT. 6. Continue telemetry.
[2018-01-25] MEDS ORDERED: Warfarin 2.5 MG Tab PO SCH (16:00)
[2018-01-25] MEDS: Metoprolol Tartrate 100 MG Tab PO SCH (20:43)
[2018-01-25] MEDS: cefTRIAXone 1,000 MG VIAL IVPUSH SCH (23:00)
[2018-01-25] MEDS: Azithromycin 500 MG in Sodium Chloride 0.9% 250 ML IV SCH (23:01)
[2018-01-26] MEDS: Digoxin 125 MCG Tab PO SCH (08:05)
[2018-01-26] MEDS: Metoprolol Tartrate 100 MG Tab PO SCH ×2 (08:06→20:50)
[2018-01-26] MEDS: Carbidopa/Levodopa 25-250 MG Tab PO SCH ×4 (08:06→19:54)
[2018-01-26] MEDS: Pantoprazole 40 MG Tab.CR PO SCH (08:06)
--- NOTE | 2018-01-26 09:22 | PCM.PN ---
- General Info Date of Service: 01/26/18 Admission Dx/Problem (Free Text): Patient states he feels better today. He occasionally gets short of breath when he sitting and walking. But overall he says he is better. He has more energy. He denies chest pain, shortness breath, fevers, chills or leg swelling. - Patient Data Vitals - Most Recent: Last Vital Signs Temp 97.5 F 01/26/18 04:00 Pulse 91 01/26/18 08:06 Resp 16 01/26/18 04:00 BP 154/93 H 01/26/18 08:06 Pulse Ox 99 01/26/18 04:00 Weight - Most Recent: 144 lb 6.4 oz I&O - Last 24 Hours: Intake & Output 01/25/18 01/26/18 01/26/18 22:59 06:59 14:59 Intake Total 500 500 Output Total 3050 750 Balance -2550 -250 Lab Results Last 24 Hours: Laboratory Results - last 24 hr 01/25/18 01/25/18 01/25/18 Range/Units 08:45 08:45 10:56 WBC (4.5-12.0) X10-3/uL RBC (4.30-5.75) x10(6)uL Hgb (11.5-15.5) g/dL Hct (30.0-51.3) % MCV (80-96) fL MCH (27.7-33.6) pg MCHC (32.2-35.4) g/dL RDW (11.5-15.5) % Plt Count (125-369) X10(3)uL MPV (7.4-10.4) fL Neut % (Auto) (46-82) % Lymph % (Auto) (13-37) % [place] % (Auto) (4-12) % Eos % (Auto) (1.0-5.0) % Baso % (Auto) (0-2) % Neut # (Auto) (1.6-8.3) # Lymph # (Auto) (0.6-5.0) # [place] # (Auto) (0.0-1.3) # Eos # (Auto) (0.0-0.8) # Baso # (Auto) (0.0-0.2) # PT 30.4 H (8.7-11.1) INR 3.17 H (0.89-1.13) D-Dimer, Quantitative 1.03 H (0.0-0.59) mg/LFEU Sodium (135-145) mmol/L Potassium (3.5-5.3) mmol/L Chloride (100-110) mmol/L Carbon Dioxide (21-32) mmol/L BUN (7-18) mg/dL Creatinine (0.70-1.30) mg/dL Est Cr Clr Drug Dosing mL/min Estimated GFR (MDRD) (>60) BUN/Creatinine Ratio (9-20) Glucose (80-116) mg/dL Calcium (8.6-10.2) mg/dL Total Bilirubin (0.1-1.3) mg/dL AST (5-25) IU/L ALT (12-36) U/L Alkaline Phosphatase (56-112) IU/L Troponin I 0.045 (<0.017-0.056) ng/mL Total Protein (6.0-8.0) g/dL Albumin (2.9-4.5) g/dL Globulin g/dL Albumin/Globulin Ratio 01/26/18 01/26/18 01/26/18 Range/Units 06:10 06:10 06:10 WBC 8.9 (4.5-12.0) X10-3/uL RBC 3.73 L (4.30-5.75) x10(6)uL Hgb 10.7 L (11.5-15.5) g/dL Hct 33.1 (30.0-51.3) % MCV 88.7 (80-96) fL MCH 28.6 (27.7-33.6) pg MCHC 32.3 (32.2-35.4) g/dL RDW 15.6 H (11.5-15.5) % Plt Count 262 (125-369) X10(3)uL MPV 8.3 (7.4-10.4) fL Neut % (Auto) 75.7 (46-82) % Lymph % (Auto) 12.8 L (13-37) % [place] % (Auto) 6.6 (4-12) % Eos % (Auto) 5 (1.0-5.0) % Baso % (Auto) 0 (0-2) % Neut # (Auto) 6.8 (1.6-8.3) # Lymph # (Auto) 1.1 (0.6-5.0) # [place] # (Auto) 0.6 (0.0-1.3) # Eos # (Auto) 0.4 (0.0-0.8) # Baso # (Auto) 0.0 (0.0-0.2) # PT 23.8 H (8.7-11.1) INR 2.47 H (0.89-1.13) D-Dimer, Quantitative (0.0-0.59) mg/LFEU Sodium 144 (135-145) mmol/L Potassium 4.0 (3.5-5.3) mmol/L Chloride 106 (100-110) mmol/L Carbon Dioxide 32 (21-32) mmol/L BUN 56 H D (7-18) mg/dL Creatinine 1.8 H (0.70-1.30) mg/dL Est Cr Clr Drug Dosing 25.77 mL/min Estimated GFR (MDRD) 36 L (>60) BUN/Creatinine Ratio 31.1 H (9-20) Glucose 89 (80-116) mg/dL Calcium 8.3 L (8.6-10.2) mg/dL Total Bilirubin 0.6 (0.1-1.3) mg/dL AST 30 H D (5-25) IU/L ALT 19 D (12-36) U/L Alkaline Phosphatase 108 (56-112) IU/L Troponin I (<0.017-0.056) ng/mL Total Protein 5.8 L (6.0-8.0) g/dL Albumin 2.8 L (2.9-4.5) g/dL Globulin 3.0 g/dL Albumin/Globulin Ratio 0.9 /05/07 Range/Units 06:10 WBC (4.5-12.0) X10-3/uL RBC (4.30-5.75) x10(6)uL Hgb (11.5-15.5) g/dL Hct (30.0-51.3) % MCV (80-96) fL MCH (27.7-33.6) pg MCHC (32.2-35.4) g/dL RDW (11.5-15.5) % Plt Count (125-369) X10(3)uL MPV (7.4-10.4) fL Neut % (Auto) (46-82) % Lymph % (Auto) (13-37) % [place] % (Auto) (4-12) % Eos % (Auto) (1.0-5.0) % Baso % (Auto) (0-2) % Neut # (Auto) (1.6-8.3) # Lymph # (Auto) (0.6-5.0) # [place] # (Auto) (0.0-1.3) # Eos # (Auto) (0.0-0.8) # Baso # (Auto) (0.0-0.2) # PT (8.7-11.1) INR (0.89-1.13) D-Dimer, Quantitative (0.0-0.59) mg/LFEU Sodium (135-145) mmol/L Potassium (3.5-5.3) mmol/L Chloride (100-110) mmol/L Carbon Dioxide (21-32) mmol/L BUN (7-18) mg/dL Creatinine (0.70-1.30) mg/dL Est Cr Clr Drug Dosing mL/min Estimated GFR (MDRD) (>60) BUN/Creatinine Ratio (9-20) Glucose (80-116) mg/dL Calcium (8.6-10.2) mg/dL Total Bilirubin (0.1-1.3) mg/dL AST (5-25) IU/L ALT (12-36) U/L Alkaline Phosphatase (56-112) IU/L Troponin I 0.037 (<0.017-0.056) ng/mL Total Protein (6.0-8.0) g/dL Albumin (2.9-4.5) g/dL Globulin g/dL Albumin/Globulin Ratio Naresh Results Last 24 Hours: Microbiology 01/24/18 10:19 Aerobic Blood Culture - Preliminary Blood - Venous - Lab Draw NO GROWTH AFTER 1 DAY Anaerobic Blood Culture - Preliminary NO GROWTH AFTER 1 DAY 01/24/18 10:12 Aerobic Blood Culture - Preliminary Blood - Venous NO GROWTH AFTER 1 DAY Anaerobic Blood Culture - Preliminary NO GROWTH AFTER 1 DAY Med Orders - Current: Current Medications Acetaminophen (Tylenol) 650 mg PO Q4H PRN PRN Reason: Pain (Mild 1-3)/fever Carbidopa/Levodopa (Sinemet 25-250 Mg) 0.5 tab PO BID PRN PRN Reason: RESTLESS LEGS Last Admin: 01/25/18 04:42 Dose: 0.5 tab Carbidopa/Levodopa (Sinemet 25-250 Mg) 1 tab PO 08,12,16,20 [facility] Last Admin: 01/26/18 08:06 Dose: 1 tab Ceftriaxone Sodium (Rocephin) 1,000 mg IVPUSH Q24H [facility] Last Admin: 01/25/18 23:00 Dose: 1,000 mg Celecoxib (Celebrex) 100 mg PO DAILY PRN PRN Reason: Pain Diclofenac Sodium (Voltaren 1% Gel) 0 gm TOP TID PRN PRN Reason: Pain Digoxin (Lanoxin) 125 mcg PO DAILY [facility] Last Admin: 01/26/18 08:05 Dose: 125 mcg Azithromycin 500 mg/ Sodium (Chloride) 250 mls @ 250 mls/hr IV Q24H [facility] Last Admin: 01/25/18 23:01 Dose: 250 mls/hr Lorazepam (Ativan) 0.5 mg PO Q6H PRN PRN Reason: Anxiety Last Admin: 01/25/18 10:47 Dose: 0.5 mg Metoprolol Tartrate (Lopressor) 100 mg PO Q12H [facility] Last Admin: 01/26/18 08:06 Dose: 100 mg Pantoprazole Sodium (Protonix) 40 mg PO DAILY [facility] Last Admin: 01/26/18 08:06 Dose: 40 mg Polyethylene Glycol (Miralax) 17 gm PO DAILY PRN PRN Reason: Constipation Senna/Docusate Sodium (Senna Plus) 1 tab PO DAILY [facility] Last Admin: 01/26/18 08:05 Dose: 1 tab Sodium Chloride (Saline Flush) 10 ml FLUSH ASDIRECTED PRN PRN Reason: Keep Vein Open Last Admin: 01/25/18 02:28 Dose: 10 ml Tramadol HCl (Ultram) 100 mg PO Q4H PRN PRN Reason: Pain (severe 7-10) Tramadol HCl (Ultram) 50 mg PO Q4H PRN PRN Reason: Pain (moderate 4-6) Warfarin Sodium (Coumadin) 2.5 mg PO MoWeFr@1600 [facility] Warfarin Sodium (Coumadin) 5 mg PO SuTuThSa@1600 [facility] Warfarin Sodium (Coumadin Sliding Scale) 1 each PO ASDIRECTED [facility] Warfarin Sodium (Coumadin) 2.5 mg PO 1600 [facility] Stop: 01/26/18 17:30 Discontinued Medications Furosemide (Lasix) 40 mg IVPUSH NOW ONE Stop: 01/24/18 10:43 Last Admin: 01/24/18 11:03 Dose: 40 mg Furosemide (Lasix) 40 mg IVPUSH NOW ONE Stop: 01/25/18 01:24 Last Admin: 01/25/18 02:22 Dose: 40 mg Furosemide (Lasix) 40 mg IVPUSH NOW ONE Stop: 01/25/18 11:42 Last Admin: 01/25/18 13:08 Dose: 40 mg Levofloxacin/Dextrose 500 mg/ (Premix) 100 mls @ 100 mls/hr IV ONETIME ONE Stop: 01/24/18 14:41 Last Admin: 01/24/18 14:42 Dose: 100 mls/hr Sodium Chloride (Normal Saline) 1,000 mls @ 50 mls/hr IV ASDIRECTED [facility] Last Admin: 01/24/18 18:19 Dose: 50 mls/hr Lidocaine HCl (Xylocaine 2% Jelly) 5 ml MUCMEM ONETIME ONE Stop: 01/25/18 01:40 Last Admin: 01/25/18 01:58 Dose: 5 ml Metoprolol Succinate (Toprol Xl) 100 mg PO DAILY [facility] Metoprolol Tartrate (Lopressor) 75 mg PO Q12H [facility] Last Admin: 01/25/18 09:12 Dose: 75 mg Metoprolol Tartrate (Lopressor) 25 mg PO ONETIME ONE Stop: 01/25/18 10:51 Last Admin: 01/25/18 10:57 Dose: 25 mg Nitroglycerin (Nitro-Bid 2%) 1 gm TOP ONETIME ONE Stop: 01/24/18 10:50 Last Admin: 01/24/18 11:04 Dose: 1 gm Nitroglycerin (Nitro-Bid 2%) 1 gm TOP ONETIME ONE Stop: 01/25/18 01:40 Last Admin: 01/25/18 02:20 Dose: 1 gm - Exam General: Alert, Oriented Lungs: Clear to Auscultation, Normal Respiratory Effort. No: Crackles, Rales, Rhonchi Cardiovascular: No Murmurs, Irregular Rhythm, Tachycardia Extremities: No Pedal Edema Psy/Mental Status: Alert, Normal Affect, Normal Mood - Problem List & Annotations (1) Palliative care status SNOMED Code(s): 144022015 Code(s): Z51.5 - ENCOUNTER FOR PALLIATIVE CARE Status: Acute Current Visit: Yes (2) Acute on chronic renal failure SNOMED Code(s): 886489823 Code(s): N17.9 - ACUTE KIDNEY FAILURE, UNSPECIFIED; N18.9 - CHRONIC KIDNEY DISEASE, UNSPECIFIED Status: Acute Current Visit: Yes (3) CHF exacerbation SNOMED Code(s): 97970544 Code(s): I50.9 - HEART FAILURE, UNSPECIFIED Status: Acute Current Visit: Yes Qualifiers: Heart failure type: unspecified Qualified Code(s): I50.9 - Heart failure, unspecified Annotation/Comment:: Due to volume contraction and hypovolemia. Slow fluids and monitor for signs of fluid overload. (4) Atrial fibrillation with RVR SNOMED Code(s): 107089712219137 Code(s): I48.91 - UNSPECIFIED ATRIAL FIBRILLATION Status: Acute Current Visit: No Annotation/Comment:: Secondary to volume contraction. I expect that the patient's heart rate will decline with appropriate fluids. Telemetry. (5) HTN, Benign essential hypertension SNOMED Code(s): 6481425 Code(s): I10 - ESSENTIAL (PRIMARY) HYPERTENSION Status: Chronic Current Visit: No Annotation/Comment:: Continue home meds. (6) Pneumonia SNOMED Code(s): 567510959 Code(s): J18.9 - PNEUMONIA, UNSPECIFIED ORGANISM Status: Acute Current Visit: Yes - Problem List Review Problem List Initiated/Reviewed/Updated: Yes - My Orders Last 24 Hours: My Active Orders 01/25/18 08:49 DC Harris Catheter [Urinary Catheter Removal] [RC] Per Unit Routine 01/25/18 10:28 LORazepam [Ativan] 0.5 mg PO Q6H PRN 01/25/18 10:49 EKG 12 Lead [EK] Stat 01/25/18 11:47 CXR [Chest 2V] [CR] Routine 01/25/18 13:13 Urinary Catheter Assessment [RC] QSHIFT 01/25/18 21:00 Metoprolol Tartrate [Lopressor] 100 mg PO Q12H 01/25/18 22:00 Azithromycin [Zithromax] 500 mg Sodium Chloride 0.9% [Normal Saline] 250 ml IV Q24H cefTRIAXone [Rocephin] 1,000 mg IVPUSH Q24H 01/26/18 06:00 EKG 12 Lead [EK] Routine 01/26/18 08:19 Ambulate [RC] QID 01/26/18 08:20 Up to Chair [RC] TIDMEALS 01/26/18 09:17 CULTURE SPUTUM + SMEAR [RM] Routine 01/26/18 09:30 Furosemide [Lasix] 40 mg PO DAILY - Plan Plan:: 1. Restart his by mouth Lasix 40 mg a day. 2. Wean off O2. 3. Continue the metoprolol 100 mg twice a day and telemetry. 4. Chest x-ray report shows possible pneumonia hilar region so Rocephin and Zithromax were started last night IV. 5. Ambulate frequently and up in the chair.
[2018-01-26] MEDS: Furosemide 40 MG Tab PO SCH (10:22)
[2018-01-26] MEDS ORDERED: Warfarin 5 MG Tab PO SCH (16:00)
[2018-01-26] MEDS ORDERED: Warfarin 2.5 MG Tab PO SCH (16:00)
[2018-01-26] MEDS: cefTRIAXone 1,000 MG VIAL IVPUSH SCH (21:47)
[2018-01-26] MEDS: Azithromycin 500 MG in Sodium Chloride 0.9% 250 ML IV SCH (21:53)
[2018-01-26] MEDS: Sodium Chloride 0.9% 10 ML Syringe FLUSH PRN (23:19)
[2018-01-27] MEDS: Carbidopa/Levodopa 25-250 MG Tab PO PRN (03:56)
[2018-01-27] MEDS: Carbidopa/Levodopa 25-250 MG Tab PO SCH ×4 (08:02→20:45)
[2018-01-27] MEDS: Digoxin 125 MCG Tab PO SCH (08:02)
[2018-01-27] MEDS: Furosemide 40 MG Tab PO SCH (08:03)
[2018-01-27] MEDS: Metoprolol Tartrate 100 MG Tab PO SCH ×2 (08:03→20:45)
[2018-01-27] MEDS: Pantoprazole 40 MG Tab.CR PO SCH (08:03)
--- NOTE | 2018-01-27 10:10 | PCM.PN ---
- General Info Date of Service: 01/27/18 Admission Dx/Problem (Free Text): Patient states he was nauseated yesterday and vomited once. He says occasionally feels like he has no energy. No nausea, diarrhea, chest pain, palpitations, fevers, chills today. The nurse reported that he walked a lot better with less shortness of breath last night. - Patient Data Vitals - Most Recent: Last Vital Signs Temp 98.2 F 01/27/18 07:54 Pulse 71 01/27/18 08:03 Resp 18 01/27/18 07:54 BP 120/73 01/27/18 08:03 Pulse Ox 93 L 01/27/18 07:54 Weight - Most Recent: 146 lb 4.8 oz I&O - Last 24 Hours: Intake & Output 01/26/18 01/27/18 01/27/18 22:59 06:59 14:59 Intake Total 500 475 Output Total 500 500 Balance 0 -25 Lab Results Last 24 Hours: Laboratory Results - last 24 hr 01/27/18 01/27/18 Range/Units 06:10 06:10 PT 20.5 H (8.7-11.1) INR 2.13 H (0.89-1.13) Sodium 143 (135-145) mmol/L Potassium 3.8 (3.5-5.3) mmol/L Chloride 105 (100-110) mmol/L Carbon Dioxide 33 H (21-32) mmol/L BUN 40 H D (7-18) mg/dL Creatinine 1.5 H (0.70-1.30) mg/dL Est Cr Clr Drug Dosing 31.34 mL/min Estimated GFR (MDRD) 44 L (>60) BUN/Creatinine Ratio 26.7 H (9-20) Glucose 98 (80-116) mg/dL Calcium 8.6 (8.6-10.2) mg/dL Naresh Results Last 24 Hours: Microbiology 01/24/18 10:19 Aerobic Blood Culture - Preliminary Blood - Venous - Lab Draw NO GROWTH AFTER 2 DAYS Anaerobic Blood Culture - Preliminary NO GROWTH AFTER 2 DAYS 01/24/18 10:12 Aerobic Blood Culture - Preliminary Blood - Venous NO GROWTH AFTER 2 DAYS Anaerobic Blood Culture - Preliminary NO GROWTH AFTER 2 DAYS Med Orders - Current: Current Medications Acetaminophen (Tylenol) 650 mg PO Q4H PRN PRN Reason: Pain (Mild 1-3)/fever Carbidopa/Levodopa (Sinemet 25-250 Mg) 0.5 tab PO BID PRN PRN Reason: RESTLESS LEGS Last Admin: 01/27/18 03:56 Dose: 0.5 tab Carbidopa/Levodopa (Sinemet 25-250 Mg) 1 tab PO 08,12,16,20 [facility] Last Admin: 01/27/18 08:02 Dose: 1 tab Ceftriaxone Sodium (Rocephin) 1,000 mg IVPUSH Q24H [facility] Last Admin: 01/26/18 21:47 Dose: 1,000 mg Celecoxib (Celebrex) 100 mg PO DAILY PRN PRN Reason: Pain Diclofenac Sodium (Voltaren 1% Gel) 0 gm TOP TID PRN PRN Reason: Pain Digoxin (Lanoxin) 125 mcg PO DAILY [facility] Last Admin: 01/27/18 08:02 Dose: 125 mcg Furosemide (Lasix) 40 mg PO DAILY [facility] Last Admin: 01/27/18 08:03 Dose: 40 mg Azithromycin 500 mg/ Sodium (Chloride) 250 mls @ 250 mls/hr IV Q24H [facility] Last Admin: 01/26/18 21:53 Dose: 250 mls/hr Lorazepam (Ativan) 0.5 mg PO Q6H PRN PRN Reason: Anxiety Last Admin: 01/25/18 10:47 Dose: 0.5 mg Metoprolol Tartrate (Lopressor) 100 mg PO Q12H [facility] Last Admin: 01/27/18 08:03 Dose: 100 mg Pantoprazole Sodium (Protonix) 40 mg PO DAILY [facility] Last Admin: 01/27/18 08:03 Dose: 40 mg Polyethylene Glycol (Miralax) 17 gm PO DAILY PRN PRN Reason: Constipation Senna/Docusate Sodium (Senna Plus) 1 tab PO DAILY [facility] Last Admin: 01/27/18 08:04 Dose: 1 tab Sodium Chloride (Saline Flush) 10 ml FLUSH ASDIRECTED PRN PRN Reason: Keep Vein Open Last Admin: 01/26/18 23:19 Dose: 10 ml Tramadol HCl (Ultram) 100 mg PO Q4H PRN PRN Reason: Pain (severe 7-10) Tramadol HCl (Ultram) 50 mg PO Q4H PRN PRN Reason: Pain (moderate 4-6) Warfarin Sodium (Coumadin) 2.5 mg PO MoWeFr@1600 [facility] Warfarin Sodium (Coumadin) 5 mg PO SuTuThSa@1600 [facility] Warfarin Sodium (Coumadin Sliding Scale) 1 each PO ASDIRECTED [facility] Warfarin Sodium (Coumadin) 2.5 mg PO ONETIME ONE Stop: 01/27/18 16:01 Discontinued Medications Furosemide (Lasix) 40 mg IVPUSH NOW ONE Stop: 01/24/18 10:43 Last Admin: 01/24/18 11:03 Dose: 40 mg Furosemide (Lasix) 40 mg IVPUSH NOW ONE Stop: 01/25/18 01:24 Last Admin: 01/25/18 02:22 Dose: 40 mg Furosemide (Lasix) 40 mg IVPUSH NOW ONE Stop: 01/25/18 11:42 Last Admin: 01/25/18 13:08 Dose: 40 mg Levofloxacin/Dextrose 500 mg/ (Premix) 100 mls @ 100 mls/hr IV ONETIME ONE Stop: 01/24/18 14:41 Last Admin: 01/24/18 14:42 Dose: 100 mls/hr Sodium Chloride (Normal Saline) 1,000 mls @ 50 mls/hr IV ASDIRECTED [facility] Last Admin: 01/24/18 18:19 Dose: 50 mls/hr Lidocaine HCl (Xylocaine 2% Jelly) 5 ml MUCMEM ONETIME ONE Stop: 01/25/18 01:40 Last Admin: 01/25/18 01:58 Dose: 5 ml Metoprolol Succinate (Toprol Xl) 100 mg PO DAILY [facility] Metoprolol Tartrate (Lopressor) 75 mg PO Q12H [facility] Last Admin: 01/25/18 09:12 Dose: 75 mg Metoprolol Tartrate (Lopressor) 25 mg PO ONETIME ONE Stop: 01/25/18 10:51 Last Admin: 01/25/18 10:57 Dose: 25 mg Nitroglycerin (Nitro-Bid 2%) 1 gm TOP ONETIME ONE Stop: 01/24/18 10:50 Last Admin: 01/24/18 11:04 Dose: 1 gm Nitroglycerin (Nitro-Bid 2%) 1 gm TOP ONETIME ONE Stop: 01/25/18 01:40 Last Admin: 01/25/18 02:20 Dose: 1 gm Warfarin Sodium (Coumadin) 2.5 mg PO 1600 [facility] Stop: 01/26/18 17:30 Last Admin: 01/26/18 17:23 Dose: 2.5 mg - Exam General: Alert, Oriented, Cooperative Neck: Supple Lungs: Clear to Auscultation, Normal Respiratory Effort, Decreased Breath Sounds Cardiovascular: Regular Rate, Irregular Rhythm. No: Murmurs Extremities: No Pedal Edema - Problem List & Annotations (1) Palliative care status SNOMED Code(s): 375176663 Code(s): Z51.5 - ENCOUNTER FOR PALLIATIVE CARE Status: Acute Current Visit: Yes (2) Acute on chronic renal failure SNOMED Code(s): 991936128 Code(s): N17.9 - ACUTE KIDNEY FAILURE, UNSPECIFIED; N18.9 - CHRONIC KIDNEY DISEASE, UNSPECIFIED Status: Acute Current Visit: Yes (3) CHF exacerbation SNOMED Code(s): 38148696 Code(s): I50.9 - HEART FAILURE, UNSPECIFIED Status: Acute Current Visit: Yes Qualifiers: Heart failure type: unspecified Qualified Code(s): I50.9 - Heart failure, unspecified Annotation/Comment:: Due to volume contraction and hypovolemia. Slow fluids and monitor for signs of fluid overload. (4) Atrial fibrillation with RVR SNOMED Code(s): 129514754390122 Code(s): I48.91 - UNSPECIFIED ATRIAL FIBRILLATION Status: Acute Current Visit: No Annotation/Comment:: Secondary to volume contraction. I expect that the patient's heart rate will decline with appropriate fluids. Telemetry. (5) HTN, Benign essential hypertension SNOMED Code(s): 9151330 Code(s): I10 - ESSENTIAL (PRIMARY) HYPERTENSION Status: Chronic Current Visit: No Annotation/Comment:: Continue home meds. (6) Pneumonia SNOMED Code(s): 341365027 Code(s): J18.9 - PNEUMONIA, UNSPECIFIED ORGANISM Status: Acute Current Visit: Yes - Problem List Review Problem List Initiated/Reviewed/Updated: Yes - My Orders Last 24 Hours: My Active Orders 01/26/18 09:17 CULTURE SPUTUM + SMEAR [RM] Routine 01/26/18 09:30 Furosemide [Lasix] 40 mg PO DAILY 01/27/18 06:10 FERRITIN, SERUM Routine - Assessment Assessment:: DC telemetry. Continue current care. PT/OT to see. - Plan Plan:: 1. Restart his by mouth Lasix 40 mg a day. 2. Wean off O2. 3. Continue the metoprolol 100 mg twice a day and telemetry. 4. Chest x-ray report shows possible pneumonia hilar region so Rocephin and Zithromax were started last night IV. 5. Ambulate frequently and up in the chair.
[2018-01-27] MEDS ORDERED: Warfarin 2.5 MG Tab PO ONE (16:00)
[2018-01-27] MEDS: cefTRIAXone 1,000 MG VIAL IVPUSH SCH (22:02)
[2018-01-27] MEDS: Sodium Chloride 0.9% 10 ML Syringe FLUSH PRN ×2 (22:02→23:03)
[2018-01-27] MEDS: Azithromycin 500 MG in Sodium Chloride 0.9% 250 ML IV SCH (22:03)
[2018-01-28] MEDS: Carbidopa/Levodopa 25-250 MG Tab PO PRN (02:27)
[2018-01-28] MEDS: Digoxin 125 MCG Tab PO SCH (08:44)
[2018-01-28] MEDS: Carbidopa/Levodopa 25-250 MG Tab PO SCH ×2 (08:44→12:46)
[2018-01-28] MEDS: Pantoprazole 40 MG Tab.CR PO SCH (08:45)
[2018-01-28] MEDS: Metoprolol Tartrate 100 MG Tab PO SCH (08:45)
[2018-01-28] MEDS: Furosemide 40 MG Tab PO SCH (08:45)
[2018-01-28 08:46] VITALS: BP 167/103
--- NOTE | 2018-01-28 09:28 | PCM.PN ---
- General Info Date of Service: 01/28/18 Admission Dx/Problem (Free Text): Patient is improved. They state he is walking. He denies shortness of breath, chest pain, nausea vomiting or fevers. - Patient Data Vitals - Most Recent: Last Vital Signs Temp 95.3 F L 01/28/18 08:00 Pulse 85 01/28/18 08:45 Resp 20 01/28/18 08:00 BP 167/103 H 01/28/18 08:45 Pulse Ox 94 L 01/28/18 08:00 Weight - Most Recent: 147 lb I&O - Last 24 Hours: Intake & Output 01/27/18 01/28/18 01/28/18 22:59 06:59 14:59 Intake Total 239 237 Balance 239 237 Lab Results Last 24 Hours: Laboratory Results - last 24 hr 01/28/18 01/28/18 Range/Units 06:25 06:25 PT 19.3 H (8.7-11.1) INR 2.00 H (0.89-1.13) Sodium 143 (135-145) mmol/L Potassium 4.0 (3.5-5.3) mmol/L Chloride 105 (100-110) mmol/L Carbon Dioxide 33 H (21-32) mmol/L BUN 38 H (7-18) mg/dL Creatinine 1.3 (0.70-1.30) mg/dL Est Cr Clr Drug Dosing 36.33 mL/min Estimated GFR (MDRD) 52 L (>60) BUN/Creatinine Ratio 29.2 H (9-20) Glucose 102 (80-116) mg/dL Calcium 8.9 (8.6-10.2) mg/dL Total Bilirubin 0.6 (0.1-1.3) mg/dL AST 28 H (5-25) IU/L ALT 13 D (12-36) U/L Alkaline Phosphatase 108 (56-112) IU/L Total Protein 6.5 (6.0-8.0) g/dL Albumin 3.0 (2.9-4.5) g/dL Globulin 3.5 g/dL Albumin/Globulin Ratio 0.9 Naresh Results Last 24 Hours: Microbiology 01/24/18 10:19 Aerobic Blood Culture - Preliminary Blood - Venous - Lab Draw NO GROWTH AFTER 4 DAYS Anaerobic Blood Culture - Preliminary NO GROWTH AFTER 4 DAYS 01/24/18 10:12 Aerobic Blood Culture - Preliminary Blood - Venous NO GROWTH AFTER 4 DAYS Anaerobic Blood Culture - Preliminary NO GROWTH AFTER 4 DAYS Med Orders - Current: Current Medications Acetaminophen (Tylenol) 650 mg PO Q4H PRN PRN Reason: Pain (Mild 1-3)/fever Carbidopa/Levodopa (Sinemet 25-250 Mg) 0.5 tab PO BID PRN PRN Reason: RESTLESS LEGS Last Admin: 01/28/18 02:27 Dose: 0.5 tab Carbidopa/Levodopa (Sinemet 25-250 Mg) 1 tab PO 08,12,16,20 [facility] Last Admin: 01/28/18 08:44 Dose: 1 tab Ceftriaxone Sodium (Rocephin) 1,000 mg IVPUSH Q24H [facility] Last Admin: 01/27/18 22:02 Dose: 1,000 mg Celecoxib (Celebrex) 100 mg PO DAILY PRN PRN Reason: Pain Diclofenac Sodium (Voltaren 1% Gel) 0 gm TOP TID PRN PRN Reason: Pain Digoxin (Lanoxin) 125 mcg PO DAILY [facility] Last Admin: 01/28/18 08:44 Dose: 125 mcg Furosemide (Lasix) 40 mg PO DAILY [facility] Last Admin: 01/28/18 08:45 Dose: 40 mg Azithromycin 500 mg/ Sodium (Chloride) 250 mls @ 250 mls/hr IV Q24H [facility] Last Admin: 01/27/18 22:03 Dose: 250 mls/hr Lorazepam (Ativan) 0.5 mg PO Q6H PRN PRN Reason: Anxiety Last Admin: 01/25/18 10:47 Dose: 0.5 mg Metoprolol Tartrate (Lopressor) 100 mg PO Q12H [facility] Last Admin: 01/28/18 08:45 Dose: 100 mg Pantoprazole Sodium (Protonix) 40 mg PO DAILY [facility] Last Admin: 01/28/18 08:45 Dose: 40 mg Polyethylene Glycol (Miralax) 17 gm PO DAILY PRN PRN Reason: Constipation Senna/Docusate Sodium (Senna Plus) 1 tab PO DAILY [facility] Last Admin: 01/28/18 08:45 Dose: 1 tab Sodium Chloride (Saline Flush) 10 ml FLUSH ASDIRECTED PRN PRN Reason: Keep Vein Open Last Admin: 01/27/18 23:03 Dose: 10 ml Tramadol HCl (Ultram) 100 mg PO Q4H PRN PRN Reason: Pain (severe 7-10) Tramadol HCl (Ultram) 50 mg PO Q4H PRN PRN Reason: Pain (moderate 4-6) Warfarin Sodium (Coumadin) 2.5 mg PO MoWeFr@1600 [facility] Warfarin Sodium (Coumadin) 5 mg PO SuTuThSa@1600 [facility] Warfarin Sodium (Coumadin Sliding Scale) 1 each PO ASDIRECTED [facility] Discontinued Medications Furosemide (Lasix) 40 mg IVPUSH NOW ONE Stop: 01/24/18 10:43 Last Admin: 01/24/18 11:03 Dose: 40 mg Furosemide (Lasix) 40 mg IVPUSH NOW ONE Stop: 01/25/18 01:24 Last Admin: 01/25/18 02:22 Dose: 40 mg Furosemide (Lasix) 40 mg IVPUSH NOW ONE Stop: 01/25/18 11:42 Last Admin: 01/25/18 13:08 Dose: 40 mg Levofloxacin/Dextrose 500 mg/ (Premix) 100 mls @ 100 mls/hr IV ONETIME ONE Stop: 01/24/18 14:41 Last Admin: 01/24/18 14:42 Dose: 100 mls/hr Sodium Chloride (Normal Saline) 1,000 mls @ 50 mls/hr IV ASDIRECTED [facility] Last Admin: 01/24/18 18:19 Dose: 50 mls/hr Lidocaine HCl (Xylocaine 2% Jelly) 5 ml MUCMEM ONETIME ONE Stop: 01/25/18 01:40 Last Admin: 01/25/18 01:58 Dose: 5 ml Metoprolol Succinate (Toprol Xl) 100 mg PO DAILY [facility] Metoprolol Tartrate (Lopressor) 75 mg PO Q12H [facility] Last Admin: 01/25/18 09:12 Dose: 75 mg Metoprolol Tartrate (Lopressor) 25 mg PO ONETIME ONE Stop: 01/25/18 10:51 Last Admin: 01/25/18 10:57 Dose: 25 mg Nitroglycerin (Nitro-Bid 2%) 1 gm TOP ONETIME ONE Stop: 01/24/18 10:50 Last Admin: 01/24/18 11:04 Dose: 1 gm Nitroglycerin (Nitro-Bid 2%) 1 gm TOP ONETIME ONE Stop: 06/08/18 01:40 Last Admin: 01/25/18 02:20 Dose: 1 gm Warfarin Sodium (Coumadin) 2.5 mg PO [address] [facility] Stop: 01/26/18 17:30 Last Admin: 01/26/18 17:23 Dose: 2.5 mg Warfarin Sodium (Coumadin) 2.5 mg PO ONETIME ONE Stop: 01/27/18 16:01 Last Admin: 01/27/18 16:19 Dose: 2.5 mg - Exam General: Alert, Oriented, Cooperative Lungs: Clear to Auscultation, Normal Respiratory Effort Cardiovascular: Regular Rate, No Murmurs, Irregular Rhythm Extremities: No Pedal Edema - Problem List & Annotations (1) Palliative care status SNOMED Code(s): 925791244 Code(s): Z51.5 - ENCOUNTER FOR PALLIATIVE CARE Status: Acute Current Visit: Yes (2) Acute on chronic renal failure SNOMED Code(s): 805003312 Code(s): N17.9 - ACUTE KIDNEY FAILURE, UNSPECIFIED; N18.9 - CHRONIC KIDNEY DISEASE, UNSPECIFIED Status: Acute Current Visit: Yes (3) CHF exacerbation SNOMED Code(s): 40196430 Code(s): I50.9 - HEART FAILURE, UNSPECIFIED Status: Acute Current Visit: Yes Qualifiers: Heart failure type: unspecified Qualified Code(s): I50.9 - Heart failure, unspecified Annotation/Comment:: Due to volume contraction and hypovolemia. Slow fluids and monitor for signs of fluid overload. (4) Atrial fibrillation with RVR SNOMED Code(s): 888396912356976 Code(s): I48.91 - UNSPECIFIED ATRIAL FIBRILLATION Status: Acute Current Visit: No Annotation/Comment:: Secondary to volume contraction. I expect that the patient's heart rate will decline with appropriate fluids. Telemetry. (5) HTN, Benign essential hypertension SNOMED Code(s): 5302589 Code(s): I10 - ESSENTIAL (PRIMARY) HYPERTENSION Status: Chronic Current Visit: No Annotation/Comment:: Continue home meds. (6) Pneumonia SNOMED Code(s): 212611795 Code(s): J18.9 - PNEUMONIA, UNSPECIFIED ORGANISM Status: Acute Current Visit: Yes - Problem List Review Problem List Initiated/Reviewed/Updated: Yes - My Orders Last 24 Hours: My Active Orders 01/28/18 08:43 OT Evaluation and Treatment [CONS] Routine PT Evaluation and Treatment [CONS] Routine - Plan Plan:: 1. Evaluate for swing bed today.
[2018-01-28] MEDS ORDERED: Warfarin 5 MG Tab PO ONE (16:00)
--- NOTE | 2018-01-28 18:00 | PCM.DCSUM1 ---
Discharge Summary - Hospital Course Free Text/Narrative:: Hospital course-patient admitted place on Lasix initially. He was found to have a pneumonia when we were able to repeat his chest x-ray. His atrial fib rate was increased. I stopped the Toprol put him on 100 mg of metoprolol twice a day. His rate in the be much better. He is on Rocephin and Zithromax. His breathing got better and we went to his regular Lasix dose by mouth. His creatinine was elevated but improved as he was here. We have physical therapy and occupational therapy see him and they felt he was doing good did not qualify for swing bed. We'll discharge him home on home health, PT/OT. He also be on Augmentin and Zithromax. Recheck with Dr. Reyes with a chest x-ray. Brief History: Patient is an 87-year-old male who was admitted in December 2017 to our facility for congestive heart failure acute exacerbation/question of pneumonia. He was discharged home on increased lasix and yesterday went into the clinic to see his primary care provider because he was more weak, played out , short of breath. His Lasix was increased to 80 mg twice a day but he was more awake this morning and so he and his son came into the emergency department. He hasn't had any cough, no phlegm, he feels short of breath but it's more of being just completely winded and played out with any exertion. He just feels exhausted and can't hardly do his activities of daily living. He hasn't had any chest pain. No nausea or vomiting. Constipation well controlled. No fevers or chills, no sweats. She hasn't felt well but it's more malaise then symptoms of illness. Continues to urinate but urine has been quite dark. His edema in his lower extremities is less than it has been for quite some time. Feels a little dizzy at times. Feels like when he tries to do anything his heart starts racing. - Discharge Data Discharge Date: 01/28/18 Discharge Disposition: Home, Self-Care 01 Condition: Good - Discharge Diagnosis/Problem(s) (1) Palliative care status SNOMED Code(s): 708645876 ICD Code: Z51.5 - ENCOUNTER FOR PALLIATIVE CARE Status: Acute (2) Acute on chronic renal failure SNOMED Code(s): 653319173 ICD Code: N17.9 - ACUTE KIDNEY FAILURE, UNSPECIFIED; N18.9 - CHRONIC KIDNEY DISEASE, UNSPECIFIED Status: Acute (3) CHF exacerbation SNOMED Code(s): 54064005 ICD Code: I50.9 - HEART FAILURE, UNSPECIFIED Status: Acute Problem Details: Due to volume contraction and hypovolemia. Slow fluids and monitor for signs of fluid overload. Qualifiers: Heart failure type: unspecified Qualified Code(s): I50.9 - Heart failure, unspecified (4) Atrial fibrillation with RVR SNOMED Code(s): 777402876274223 ICD Code: I48.91 - UNSPECIFIED ATRIAL FIBRILLATION Status: Acute Problem Details: Secondary to volume contraction. I expect that the patient's heart rate will decline with appropriate fluids. Telemetry. (5) HTN, Benign essential hypertension SNOMED Code(s): 8475595 ICD Code: I10 - ESSENTIAL (PRIMARY) HYPERTENSION Status: Chronic Problem Details: Continue home meds. (6) Pneumonia SNOMED Code(s): 579709311 ICD Code: J18.9 - PNEUMONIA, UNSPECIFIED ORGANISM Status: Acute - Patient Summary/Data Consults: Consultations 01/24/18 16:45 Respiratory Care Assess and Treatment [CONS] Routine Comment: Physician Instructions: 01/24/18 19:48 Consult to Pharmacy [CONS] Routine Comment: Physician Instructions: Quantity: Reason for Consult: A fib warfarin 2-3 INR Special Instructions: Start 1st dose tomorrow - hold today. 01/28/18 08:43 OT Evaluation and Treatment [CONS] Routine Please Evaluate and Treat. OT Reason for Consult: ADL's This query below is only for informational purposes and is not editable. Admission Diagnosis/Problem: Heart failure PT Evaluation and Treatment [CONS] Routine Please Evaluate and Treat. PT Reason for Consult: Strengthening This query below is only for informational purposes and is not editable. Admission Diagnosis/Problem: Heart failure - Patient Instructions Diet: Regular Diet as Tolerated Activity: As Tolerated Driving: Do Not Drive Showering/Bathing: May Shower Other/Special Instructions: 1. Recheck with Dr. Zayas in 7-10 days with chest x -ray, CBC and panel 8. 2. Home health in regards to medical management, disease teaching. 3. PT/OT. - Discharge Plan Prescriptions/Med Rec: Amoxicillin/Clavulanate K [Augmentin 500-125 MG] 1 tab PO TID #24 tab Azithromycin [Zithromax] 250 mg PO DAILY #3 tab Metoprolol Tartrate [Lopressor] 100 mg PO Q12H #60 tablet Home Medications: Home Meds Warfarin Sodium [Jantoven] 2.5 mg PO MOWEFR 01/19/14 [History] traMADol [Ultram] 50 mg PO Q4H PRN 03/18/17 [History] Carbidopa/Levodopa [Sinemet 25-250 MG] 1 tab PO 08,12,16,20 01/04/18 [History] Celecoxib [CeleBREX] 100 mg PO DAILY PRN 01/04/18 [History] Sennosides/Docusate Sodium [Senna-S] 1 each PO DAILY 01/04/18 [History] Warfarin [Coumadin] 5 mg PO SUTUTHSA 01/04/18 [History] Diclofenac Sodium [Voltaren] 1 applic TP TID PRN 01/05/18 [History] traMADol [Ultram] 100 mg PO Q4H PRN 01/05/18 [History] Carbidopa/Levodopa [Sinemet 25-250 MG] 0.5 tab PO BID PRN 01/24/18 [History] Cyclobenzaprine HCl 5 mg PO BID 01/24/18 [History] Digoxin 125 mcg PO DAILY 01/24/18 [History] Furosemide [Lasix] 40 mg PO DAILY 01/24/18 [History] Pantoprazole [ProTONIX] 40 mg PO DAILY 01/24/18 [History] Amoxicillin/Clavulanate K [Augmentin 500-125 MG] 1 tab PO TID #24 tab 01/28/18 [ Rx] Azithromycin [Zithromax] 250 mg PO DAILY #3 tab 01/28/18 [Rx] Metoprolol Tartrate [Lopressor] 100 mg PO Q12H #60 tablet 01/28/18 [Rx] Patient Handouts: Venous Thromboembolism Prevention Forms: ED Department Discharge Referrals: Parker Zayas MD [Primary Care Provider] - - Discharge Summary/Plan Comment DC Time >30 min.: Yes - Patient Data Vitals - Most Recent: Last Vital Signs Temp 95.3 F L 01/28/18 08:00 Pulse 85 01/28/18 08:45 Resp 20 01/28/18 08:00 BP 167/103 H 01/28/18 08:45 Pulse Ox 94 L 01/28/18 08:00 Weight - Most Recent: 147 lb I&O - Last 24 hours: Intake & Output 01/28/18 01/28/18 01/28/18 06:59 14:59 22:59 Intake Total 237 Balance 237 Lab Results - Last 24 hrs: Laboratory Results - last 24 hr 01/28/18 01/28/18 Range/Units 06:25 06:25 PT 19.3 H (8.7-11.1) INR 2.00 H (0.89-1.13) Sodium 143 (135-145) mmol/L Potassium 4.0 (3.5-5.3) mmol/L Chloride 105 (100-110) mmol/L Carbon Dioxide 33 H (21-32) mmol/L BUN 38 H (7-18) mg/dL Creatinine 1.3 (0.70-1.30) mg/dL Est Cr Clr Drug Dosing 36.33 mL/min Estimated GFR (MDRD) 52 L (>60) BUN/Creatinine Ratio 29.2 H (9-20) Glucose 102 (80-116) mg/dL Calcium 8.9 (8.6-10.2) mg/dL Total Bilirubin 0.6 (0.1-1.3) mg/dL AST 28 H (5-25) IU/L ALT 13 D (12-36) U/L Alkaline Phosphatase 108 (56-112) IU/L Total Protein 6.5 (6.0-8.0) g/dL Albumin 3.0 (2.9-4.5) g/dL Globulin 3.5 g/dL Albumin/Globulin Ratio 0.9 TROY Results - Last 24 hrs: Microbiology 01/24/18 10:19 Aerobic Blood Culture - Preliminary Blood - Venous - Lab Draw NO GROWTH AFTER 4 DAYS Anaerobic Blood Culture - Preliminary NO GROWTH AFTER 4 DAYS 01/24/18 10:12 Aerobic Blood Culture - Preliminary Blood - Venous NO GROWTH AFTER 4 DAYS Anaerobic Blood Culture - Preliminary NO GROWTH AFTER 4 DAYS Med Orders - Current: Current Medications Discontinued Medications Acetaminophen (Tylenol) 650 mg PO Q4H PRN PRN Reason: Pain (Mild 1-3)/fever Carbidopa/Levodopa (Sinemet 25-250 Mg) 0.5 tab PO BID PRN PRN Reason: RESTLESS LEGS Last Admin: 01/28/18 02:27 Dose: 0.5 tab Carbidopa/Levodopa (Sinemet 25-250 Mg) 1 tab PO 08,12,16,20 [facility] Last Admin: 01/28/18 12:46 Dose: 1 tab Ceftriaxone Sodium (Rocephin) 1,000 mg IVPUSH Q24H [facility] Last Admin: 01/27/18 22:02 Dose: 1,000 mg Celecoxib (Celebrex) 100 mg PO DAILY PRN PRN Reason: Pain Diclofenac Sodium (Voltaren 1% Gel) 0 gm TOP TID PRN PRN Reason: Pain Digoxin (Lanoxin) 125 mcg PO DAILY [facility] Last Admin: 01/28/18 08:44 Dose: 125 mcg Furosemide (Lasix) 40 mg IVPUSH NOW ONE Stop: 01/24/18 10:43 Last Admin: 01/24/18 11:03 Dose: 40 mg Furosemide (Lasix) 40 mg IVPUSH NOW ONE Stop: 01/25/18 01:24 Last Admin: 01/25/18 02:22 Dose: 40 mg Furosemide (Lasix) 40 mg IVPUSH NOW ONE Stop: 01/25/18 11:42 Last Admin: 01/25/18 13:08 Dose: 40 mg Furosemide (Lasix) 40 mg PO DAILY [facility] Last Admin: 01/28/18 08:45 Dose: 40 mg Levofloxacin/Dextrose 500 mg/ (Premix) 100 mls @ 100 mls/hr IV ONETIME ONE Stop: 01/24/18 14:41 Last Admin: 01/24/18 14:42 Dose: 100 mls/hr Sodium Chloride (Normal Saline) 1,000 mls @ 50 mls/hr IV ASDIRECTED [facility] Last Admin: 01/24/18 18:19 Dose: 50 mls/hr Azithromycin 500 mg/ Sodium (Chloride) 250 mls @ 250 mls/hr IV Q24H [facility] Last Admin: 01/27/18 22:03 Dose: 250 mls/hr Lidocaine HCl (Xylocaine 2% Jelly) 5 ml MUCMEM ONETIME ONE Stop: 01/25/18 01:40 Last Admin: 01/25/18 01:58 Dose: 5 ml Lorazepam (Ativan) 0.5 mg PO Q6H PRN PRN Reason: Anxiety Last Admin: 01/25/18 10:47 Dose: 0.5 mg Metoprolol Succinate (Toprol Xl) 100 mg PO DAILY [facility] Metoprolol Tartrate (Lopressor) 75 mg PO Q12H [facility] Last Admin: 01/25/18 09:12 Dose: 75 mg Metoprolol Tartrate (Lopressor) 25 mg PO ONETIME ONE Stop: 01/25/18 10:51 Last Admin: 01/25/18 10:57 Dose: 25 mg Metoprolol Tartrate (Lopressor) 100 mg PO Q12H [facility] Last Admin: 01/28/18 08:45 Dose: 100 mg Nitroglycerin (Nitro-Bid 2%) 1 gm TOP ONETIME ONE Stop: 01/24/18 10:50 Last Admin: 01/24/18 11:04 Dose: 1 gm Nitroglycerin (Nitro-Bid 2%) 1 gm TOP ONETIME ONE Stop: 01/25/18 01:40 Last Admin: 01/25/18 02:20 Dose: 1 gm Pantoprazole Sodium (Protonix) 40 mg PO DAILY [facility] Last Admin: 01/28/18 08:45 Dose: 40 mg Polyethylene Glycol (Miralax) 17 gm PO DAILY PRN PRN Reason: Constipation Senna/Docusate Sodium (Senna Plus) 1 tab PO DAILY [facility] Last Admin: 01/28/18 08:45 Dose: 1 tab Sodium Chloride (Saline Flush) 10 ml FLUSH ASDIRECTED PRN PRN Reason: Keep Vein Open Last Admin: 01/27/18 23:03 Dose: 10 ml Tramadol HCl (Ultram) 100 mg PO Q4H PRN PRN Reason: Pain (severe 7-10) Tramadol HCl (Ultram) 50 mg PO Q4H PRN PRN Reason: Pain (moderate 4-6) Warfarin Sodium (Coumadin) 2.5 mg PO [id number] [facility] Warfarin Sodium (Coumadin) 5 mg PO [id number]@1600 [facility] Warfarin Sodium (Coumadin Sliding Scale) 1 each PO ASDIRECTED [facility] Warfarin Sodium (Coumadin) 2.5 mg PO 1600 [facility] Stop: 01/26/18 17:30 Last Admin: 01/26/18 17:23 Dose: 2.5 mg Warfarin Sodium (Coumadin) 2.5 mg PO ONETIME ONE Stop: 01/27/18 16:01 Last Admin: 01/27/18 16:19 Dose: 2.5 mg Warfarin Sodium (Coumadin) 5 mg PO ONETIME ONE Stop: 01/28/18 16:01
== END 2018-01-28 15:20 | disposition home health service (06) | DRG 194 ==
LOC: FB.ED 09:42 → FB.MS 12:24
PROVIDERS: ADMIT Family Medicine; ATTEND Family Medicine
DX: J18.9 Pneumonia, unspecified organism (principal); I13.0 Hypertensive heart and chronic kidney disease with heart failure and stage 1 through stage 4 chronic kidney disease, or unspecified chronic kidney disease; N17.9 Acute kidney failure, unspecified; Z51.5 Encounter for palliative care; Z66 Do not resuscitate; I50.9 Heart failure, unspecified; I48.2 Chronic atrial fibrillation; N18.9 Chronic kidney disease, unspecified; Z79.01 Long term (current) use of anticoagulants; Z86.711 Personal history of pulmonary embolism; R06.02 Shortness of breath; R53.1 Weakness; E86.1 Hypovolemia; M54.9 Dorsalgia, unspecified; G89.29 Other chronic pain; G25.81 Restless legs syndrome; Z87.898 Personal history of other specified conditions; Z85.46 Personal history of malignant neoplasm of prostate; Z88.8 Allergy status to other drugs, medicaments and biological substances; Z96.649 Presence of unspecified artificial hip joint; Z96.619 Presence of unspecified artificial shoulder joint
CPT/HCPCS: 36415; 71045; 80053; 81001; 83605; 83880; 84484; 85025; 85610; 86140; 87040 ×2; 93005; 96374; 99285 ×2; A9270; J1940; 51702; 71046; 80048; 82728; 85379; 93306; 97161-GP; J0456; J0696; J1956; J7030; J7050

== ENCOUNTER 2018-03-02 08:31 | Inpatient (IN) | payer MEDICARE, BC ==
--- NOTE | 2018-03-02 09:08 | EDM.PDOC ---
ED HPI GENERAL MEDICAL PROBLEM - General Chief Complaint: Lower Extremity Injury/Pain Stated Complaint: REDNESS AND SWELLING IN THE LEGS Time Seen by Provider: 03/02/18 08:31 Source of Information: Reports: Patient, Family History Limitations: Reports: Other (poor historian) - History of Present Illness INITIAL COMMENTS - FREE TEXT/NARRATIVE: 87 y.o.w.m came with his son from a [facility] place to the ed due to redness of his lower extremities. Pt was seen at the clinic 3 days ago and his symptoms are getting worse. Pt has a h/o fib and take Coumadine. His last INR was 2.0 He takes lasix as well, [place] [address]. He feeks week when walking short distance. No C/P No N/V/Dizziness or any other acute medical issues. BP 151/81 Pulse 64 Temp 36.8 RR 18 Pulse ox 99% on RA Onset Date: 02/27/18 Onset Time: 07:00 Duration: Day(s):, Getting Worse Location: Reports: Lower Extremity, Left Quality: Reports: Dull Severity: Moderate Improves with: Reports: None Worsens with: Reports: None Context: Reports: Other Associated Symptoms: Reports: Rash (left lower extremity) denies Pain Score (Numeric/FACES): 4 - Related Data Allergies Allergy/AdvReac Type Severity Reaction Status Date / Time diclofenac Allergy Shortness Verified 03/02/18 09:27 of Breath promethazine Allergy Confusion Verified 03/02/18 09:27 Home Meds: Home Meds Warfarin Sodium [Jantoven] 5 mg PO [id number]@199901/19/14 [History] traMADol [Ultram] 50 mg PO Q4H PRN 03/18/17 [History] Carbidopa/Levodopa [Sinemet 25-250 MG] 1 tab PO 08,12,16,20 01/04/18 [History] Celecoxib [CeleBREX] 100 mg PO DAILY PRN 01/04/18 [History] Sennosides/Docusate Sodium [Senna-S] 1 each PO DAILY 01/04/18 [History] Warfarin [Coumadin] 2.5 mg PO SUTUTHSA@199901/04/18 [History] Diclofenac Sodium [Voltaren] 1 applic TP TID PRN 01/05/18 [History] traMADol [Ultram] 100 mg PO Q4H PRN 01/05/18 [History] Carbidopa/Levodopa [Sinemet 25-250 MG] 0.5 tab PO BID PRN 01/24/18 [History] Cyclobenzaprine HCl 5 mg PO BID 01/24/18 [History] Digoxin 125 mcg PO DAILY 01/24/18 [History] Furosemide [Lasix] 40 mg PO DAILY 01/24/18 [History] Pantoprazole [ProTONIX] 40 mg PO DAILY 01/24/18 [History] Doxycycline Hyclate 100 mg PO BID 03/02/18 [History] Metoprolol Tartrate [Lopressor] 100 mg PO BID 03/02/18 [History] Past Medical History HEENT History: Reports: Cataract, Glaucoma, Other (See Below) Other HEENT History: right pseudophokia Cardiovascular History: Reports: Afib, Heart Failure Respiratory History: Reports: PE Gastrointestinal History: Reports: Other (See Below) Other Gastrointestinal History: diverticulitis Genitourinary History: Reports: Prostate Disorder Other Genitourinary History: left kidney mass Musculoskeletal History: Reports: Back Pain, Chronic Other Musculoskeletal History: shoulder bursitis/tendonitis Neurological History: Reports: Other (See Below) Other Neuro History: restless legs Hematologic History: Reports: Anemia Oncologic (Cancer) History: Reports: Prostate Dermatologic History: Reports: Other (See Below) Other Dermatologic History: chronic itch - Infectious Disease History Infectious Disease History: Reports: Chicken Pox, Mumps - Past Surgical History HEENT Surgical History: Reports: Cataract Surgery, Other (See Below) GI Surgical History: Reports: Hernia, Inguinal Male Surgical History: Reports: Prostate Biopsy, TURP-Transurethral Resection of Prostate Musculoskeletal Surgical History: Reports: Hip Replacement, Shoulder Replacement Social & Family History - Family History Family Medical History: Noncontributory - Caffeine Use Caffeine Use: Reports: None Review of Systems - Review of Systems Review Of Systems: See Below Constitutional: Reports: Weakness Eyes: Reports: No Symptoms Ears: Reports: No Symptoms Nose: Reports: No Symptoms Mouth/Throat: Reports: No Symptoms Respiratory: Reports: Shortness of Breath Cardiovascular: Reports: No Symptoms GI/Abdominal: Reports: No Symptoms Genitourinary: Reports: No Symptoms Skin: Reports: Rash (left L ext > then right lower extremity) Neurological: Reports: No Symptoms Psychiatric: Reports: No Symptoms ED EXAM, GENERAL - Physical Exam Exam: See Below Exam Limited By: Other (poor historaian) General Appearance: Alert, WD/WN Eye Exam: Bilateral Eye: Normal Inspection Ears: Normal External Exam Ear Exam: Bilateral Ear: Auricle Normal Nose: Normal Inspection Throat/Mouth: Normal Lips, Normal Voice, No Airway Compromise Head: Atraumatic, Normocephalic Neck: Normal Inspection, Supple, Non-Tender, Full Range of Motion Respiratory/Chest: No Accessory Muscle Use, Decreased Breath Sounds, Crackles Cardiovascular: Normal Peripheral Pulses Peripheral Pulses: 1+: Brachial (L) GI/Abdominal: Normal Bowel Sounds, Soft, Non-Tender, No Organomegaly, No Distention, No Abnormal Bruit (Male) Exam: No Hernia Rectal (Males) Exam: Deferred Back Exam: Normal Inspection, Full Range of Motion Extremities: Normal Range of Motion, Redness (lower extremities) Neurological: Alert, Oriented, CN II-XII Intact, Normal Cognition, Abnormal Gait (with walker) Psychiatric: Normal Affect, Normal Mood Skin Exam: Warm, Dry, Rash (lower extremities) Lymphatic: No Adenopathy Course - Vital Signs Text/Narrative:: 87 y.o.w.m came with his son from a [facility] place to the ed due to redness of his lower extremities. Pt was seen at the clinic 3 days ago and his symptoms are getting worse. Pt has a h/o fib and take Coumadine. His last INR was 2.0 He takes lasix as well, [place] [address]. He feeks week when walking short distance. No C/P No N/V/Dizziness or any other acute medical issues. BP 151/81 Pulse 64 Temp 36.8 RR 18 Pulse ox 99% on RA PE: Pale 87 y.o.w.m with lower extr. cellulitis, was at [facility] cl[facility] 4 days ago received Doxycycline, No improvement. Labs: WBC 8.1 HGB 10.1 HCT 34.0 INR 2.74 GFR 52 BUN 35 Cr. 1.3 Digoxin 1.4 K.4.0 Na 138 Imaging: CXR: NAD Impression: H/O A fib-on comadine, [place] lower extremity cellulitis L> then right Tx: ABx will be ordered by the hospitalist as soon the pt is at the floor. Reexam: Pt was doing fine in the ed Plan: Admit to [facility], Hospitalist accepted the pt for admission Last Recorded V/S: Last Vital Signs Temp 36.4 C 03/03/18 19:48 Pulse 84 03/03/18 21:51 Resp 16 03/03/18 19:48 BP 169/96 H 03/03/18 21:51 Pulse Ox 93 L 03/03/18 19:48 - Orders/Labs/Meds Orders: Medication Orders Acetaminophen (Tylenol) 650 mg PO Q4H PRN PRN Reason: Pain (Mild 1-3)/fever Carbidopa/Levodopa (Sinemet 25-250 Mg) 0.5 tab PO BID PRN PRN Reason: RESTLESS LEGS Last Admin: 03/03/18 04:23 Dose: 0.5 tab Carbidopa/Levodopa (Sinemet 25-250 Mg) 1 tab PO 08,12,16,20 [facility] Last Admin: 03/03/18 20:03 Dose: 1 tab Admin: 03/03/18 16:25 Dose: 1 tab Admin: 03/03/18 13:53 Dose: 1 tab Admin: 03/03/18 08:32 Dose: 1 tab Admin: 03/02/18 20:07 Dose: 1 tab Admin: 03/02/18 16:18 Dose: 1 tab Admin: 03/02/18 13:00 Dose: 1 tab Cyclobenzaprine HCl (Flexeril) 5 mg PO BID [facility] Last Admin: 03/03/18 21:51 Dose: 5 mg Admin: 03/03/18 08:23 Dose: Admin: 03/03/18 07:32 Dose: 5 mg Admin: 03/02/18 21:14 Dose: 5 mg Digoxin (Lanoxin) 125 mcg PO DAILY [facility] Last Admin: 03/03/18 08:24 Dose: Admin: 03/03/18 07:32 Dose: 125 mcg Furosemide (Lasix) 40 mg PO DAILY [facility] Last Admin: 03/03/18 08:25 Dose: Admin: 03/03/18 07:33 Dose: 40 mg Hydralazine HCl (Apresoline) 10 mg PO BID [facility] Last Admin: 03/03/18 21:51 Dose: 10 mg Admin: 03/03/18 11:14 Dose: 10 mg Piperacillin Sod/Tazobactam (Sod 2.25 gm/ Sodium Chloride) 50 mls @ 100 mls/hr IV Q6H [facility] Last Admin: 03/03/18 19:33 Dose: 100 mls/hr Admin: 03/03/18 13:53 Dose: 100 mls/hr Admin: 03/03/18 06:45 Dose: 100 mls/hr Admin: 03/03/18 01:17 Dose: 100 mls/hr Admin: 03/02/18 19:04 Dose: 100 mls/hr Admin: 03/02/18 13:43 Dose: 100 mls/hr Vancomycin HCl 1,250 mg/ (Sodium Chloride) 500 mls @ 333.333 mls/hr IV Q36H [facility] Last Admin: 03/02/18 14:30 Dose: 333.333 mls/hr Metoprolol Tartrate (Lopressor) 100 mg PO BID [facility] Last Admin: 03/03/18 21:51 Dose: 100 mg Admin: 03/03/18 08:25 Dose: Admin: 03/03/18 07:31 Dose: 100 mg Admin: 03/02/18 21:14 Dose: 100 mg Pantoprazole Sodium (Protonix) 40 mg PO ACBREAKFAST [facility] Last Admin: 03/03/18 06:46 Dose: 40 mg Saccharomyces Boulardii (Florastor) 500 mg PO TID [facility] Last Admin: 03/03/18 21:52 Dose: 500 mg Admin: 03/03/18 13:54 Dose: 500 mg Admin: 03/03/18 08:24 Dose: 500 mg Admin: 03/02/18 21:15 Dose: 500 mg Admin: 03/02/18 14:35 Dose: 500 mg Senna/Docusate Sodium (Senna Plus) 1 tab PO DAILY [facility] Last Admin: 03/03/18 08:25 Dose: Admin: 03/03/18 07:33 Dose: 1 tab Sodium Chloride (Saline Flush) 10 ml FLUSH ASDIRECTED PRN PRN Reason: Keep Vein Open Last Admin: 03/03/18 20:03 Dose: 10 ml Admin: 03/03/18 19:28 Dose: 10 ml Admin: 03/02/18 19:40 Dose: 10 ml Admin: 03/02/18 16:49 Dose: 10 ml Vancomycin HCl (Pharmacy To Dose - Vancomycin) 1 dose .XX ASDIRECTED [facility] Warfarin Sodium (Coumadin) 2.5 mg PO SuTuThSa@1600 [facility] Last Admin: 03/03/18 16:24 Dose: 2.5 mg Admin: 03/02/18 16:19 Dose: 2.5 mg Warfarin Sodium (Coumadin) 5 mg PO [id number]@1600 [facility] Labs: Laboratory Tests 03/02/18 03/02/18 03/02/18 Range/Units 09:20 09:20 09:20 WBC 8.2 (4.5-12.0) X10-3/uL RBC 3.51 L (4.30-5.75) x10(6)uL Hgb 10.1 L (11.5-15.5) g/dL Hct 31.4 (30.0-51.3) % MCV 89.5 (80-96) fL MCH 28.8 (27.7-33.6) pg MCHC 32.2 (32.2-35.4) g/dL RDW 16.4 H (11.5-15.5) % Plt Count 285 (125-369) X10(3)uL MPV 7.9 (7.4-10.4) fL Neut % (Auto) 65.8 (46-82) % Lymph % (Auto) 16.2 (13-37) % Page % (Auto) 11.9 (4-12) % Eos % (Auto) 5 (1.0-5.0) % Baso % (Auto) 1 (0-2) % Neut # (Auto) 5.4 (1.6-8.3) # Lymph # (Auto) 1.3 (0.6-5.0) # Page # (Auto) 1.0 (0.0-1.3) # Eos # (Auto) 0.4 (0.0-0.8) # Baso # (Auto) 0.1 (0.0-0.2) # PT 26.1 H (8.7-11.1) INR 2.72 H (0.89-1.13) Sodium 142 (135-145) mmol/L Potassium 4.0 (3.5-5.3) mmol/L Chloride 105 (100-110) mmol/L Carbon Dioxide 30 (21-32) mmol/L BUN 35 H (7-18) mg/dL Creatinine 1.3 (0.70-1.30) mg/dL Est Cr Clr Drug Dosing TNP Estimated GFR (MDRD) 52 L (>60) BUN/Creatinine Ratio 26.9 H (9-20) Glucose 88 (80-116) mg/dL Lactic Acid (0.4-2.2) mmol/L Calcium 8.6 (8.6-10.2) mg/dL Digoxin (0.9-2.0) ng/mL 03/02/18 03/02/18 Range/Units 09:20 09:20 WBC (4.5-12.0) X10-3/uL RBC (4.30-5.75) x10(6)uL Hgb (11.5-15.5) g/dL Hct (30.0-51.3) % MCV (80-96) fL MCH (27.7-33.6) pg MCHC (32.2-35.4) g/dL RDW (11.5-15.5) % Plt Count (125-369) X10(3)uL MPV (7.4-10.4) fL Neut % (Auto) (46-82) % Lymph % (Auto) (13-37) % Page % (Auto) (4-12) % Eos % (Auto) (1.0-5.0) % Baso % (Auto) (0-2) % Neut # (Auto) (1.6-8.3) # Lymph # (Auto) (0.6-5.0) # Page # (Auto) (0.0-1.3) # Eos # (Auto) (0.0-0.8) # Baso # (Auto) (0.0-0.2) # PT (8.7-11.1) INR (0.89-1.13) Sodium (135-145) mmol/L Potassium (3.5-5.3) mmol/L Chloride (100-110) mmol/L Carbon Dioxide (21-32) mmol/L BUN (7-18) mg/dL Creatinine (0.70-1.30) mg/dL Est Cr Clr Drug Dosing Estimated GFR (MDRD) (>60) BUN/Creatinine Ratio (9-20) Glucose (80-116) mg/dL Lactic Acid 1.2 (0.4-2.2) mmol/L Calcium (8.6-10.2) mg/dL Digoxin 1.4 (0.9-2.0) ng/mL Meds: Medications Generic Name Dose Route Start Last Admin Trade Name Freq PRN Reason Stop Dose Admin Acetaminophen 650 mg 03/02/18 12:45 Tylenol PO Q4H PRN Pain (Mild 1-3)/fever Carbidopa/Levodopa 0.5 tab 03/02/18 12:49 03/03/18 04:23 Sinemet 25-250 Mg PO 0.5 tab BID PRN Administration RESTLESS LEGS Carbidopa/Levodopa 1 tab 03/02/18 16:00 03/03/18 20:03 Sinemet 25-250 Mg PO 1 tab 08,12,16,20 LAVINIA Administration Cyclobenzaprine HCl 5 mg 03/02/18 21:00 03/03/18 21:51 Flexeril PO 5 mg BID LAVINIA Administration Digoxin 125 mcg 03/03/18 09:00 03/03/18 08:24 Lanoxin PO Not Given DAILY LAVINIA Furosemide 40 mg 03/03/18 09:00 03/03/18 08:25 Lasix PO Not Given DAILY LAVINIA Hydralazine HCl 10 mg 03/03/18 11:00 03/03/18 21:51 Apresoline PO 10 mg BID LAVINIA Administration Piperacillin Sod/Tazobactam 50 mls @ 100 mls/hr 03/02/18 13:00 03/03/18 19:33 Sod 2.25 gm/ Sodium Chloride IV 100 mls/hr Q6H LAVINIA Administration Vancomycin HCl 1,250 mg/ 500 mls @ 333.333 mls/hr 03/02/18 14:00 03/02/18 14: 30 Sodium Chloride IV 333.333 mls/hr Q36H LAVNIIA Administration Metoprolol Tartrate 100 mg 03/02/18 21:00 03/03/18 21:51 Lopressor PO 100 mg BID LAVINIA Administration Pantoprazole Sodium 40 mg 03/03/18 07:30 03/03/18 06:46 Protonix PO 40 mg ACBREAKFAST LAVINIA Administration Saccharomyces Boulardii 500 mg 03/02/18 14:00 03/03/18 21:52 Florastor PO 500 mg TID LAVINIA Administration Senna/Docusate Sodium 1 tab 03/03/18 09:00 03/03/18 08:25 Senna Plus PO Not Given DAILY [facility] Sodium Chloride 10 ml 03/02/18 13:46 03/03/18 20:03 Saline Flush FLUSH 10 ml ASDIRECTED PRN Administration Keep Vein Open Vancomycin HCl 1 dose 03/02/18 13:00 Pharmacy To Dose - Vancomycin .XX ASDIRECTED [facility] Warfarin Sodium 2.5 mg 03/02/18 16:00 03/03/18 16:24 Coumadin PO 2.5 mg [id number]@1600 [facility] Administration Warfarin Sodium 5 mg 03/04/18 16:00 Coumadin PO [id number]@1600 [facility] Discontinued Medications Generic Name Dose Route Start Last Admin Trade Name Freq PRN Reason Stop Dose Admin Piperacillin Sod/Tazobactam 50 mls @ 100 mls/hr 03/02/18 13:00 03/02/18 13:45 Sod 3.375 gm/ Sodium Chloride IV Not Given Q6H [facility] Departure - Departure Time of Disposition: 10:52 Disposition: Admitted As Inpatient 64 Condition: Fair Clinical Impression: Cellulitis Qualifiers: Site of cellulitis of extremity: lower extremity Laterality: left - Discharge Information
[2018-03-02] MEDS ORDERED: Acetaminophen 325 MG Tab PO PRN (12:45)
--- NOTE | 2018-03-02 12:58 | PCM.HP ---
H&P History of Present Illness - General Date of Service: 03/02/18 Admit Problem/Dx: Admission Diagnosis/Problem Admission Diagnosis/Problem Cellulitis - History of Present Illness Initial Comments - Free Text/Narative: Patient is an 87-year-old male that I admitted back in January 2018 with dehydration after he had been admitted in December and had his diuretics increased for congestive heart failure. The patient has done fairly well since that hospitalization in early January. He's always had trouble with lower extremity edema with woody stasis changes to the lower extremities and the dermatitis but over the last 2 weeks staff at the [facility] where he lived felt that his left lower extremity was becoming increasingly reddened. On presented to the clinic and was seen and evaluated with laboratory work which was negative and started on Keflex 500 mg by mouth 3 times a day for 10 days. He didn't feel that the redness was much worse than usual but the practitioner at the clinic was concerned that this was cellulitis. He's had no pain, no fevers, no chills, but has been weaker than usual particularly in the legs. He hasn't had increasing edema. He denies chest pain or shortness of breath. He's had no nausea or vomiting. No diarrhea and fact tends to be on the constipated side. He took the Keflex for 3 days with no improvement and went back into the clinic on the and at that time was changed to doxycycline 100 mg by mouth twice a day 10 days. He's had no improvement with that either so came into the emergency department this morning at the insistence of [facility] staff. He does not feel that the leg is any better or worse than it has been and his son concurs that he's always had lower extremity redness since his edema. He also has a hx of PVD. Past medical history also significant for: Prostate cancer Chronic atrial fibrillation currently anticoagulated History of PE in the remote past. systolic congestive heart failure with echo done 01/25/18 showing mildly reduced left ventricular systolic function with EF 45%. Markedly dilated left atrium. Mild aortic regurgitation. Mildly reduced right ventricular systolic function. Moderate to severe tricuspid regurgitation. Dilated IVC with minimal respirophasic changes. 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 Osteoarthritis and history of hip joint replacement with dislocation, back pain. History of compression fracture of the first lumbar vertebra and thoracic vertebrae status post vertebral plasty History of glaucoma, cataracts. Social history: Never smoked, no alcohol use, lives at [facility]. His recently . Has 2 children his son who was here with him today and a daughter who lives in [place]. Family history: Patient's father of gas poisoning and the patient's mother at 89 of old age. She had congestive heart failure. - Related Data Allergies/Adverse Reactions: Allergies Allergy/AdvReac Type Severity Reaction Status Date / Time diclofenac Allergy Shortness Verified 03/02/18 09:27 of Breath promethazine Allergy Confusion Verified 03/02/18 09:27 Home Medications: Home Meds Warfarin Sodium [Jantoven] 5 mg PO MOWEFR@199901/19/14 [History] traMADol [Ultram] 50 mg PO Q4H PRN 03/18/17 [History] Carbidopa/Levodopa [Sinemet 25-250 MG] 1 tab PO 08,12,16,20 01/04/18 [History] Celecoxib [CeleBREX] 100 mg PO DAILY PRN 01/04/18 [History] Sennosides/Docusate Sodium [Senna-S] 1 each PO DAILY 01/04/18 [History] Warfarin [Coumadin] 2.5 mg PO SUTUTHSA@199901/04/18 [History] Diclofenac Sodium [Voltaren] 1 applic TP TID PRN 01/05/18 [History] traMADol [Ultram] 100 mg PO Q4H PRN 01/05/18 [History] Carbidopa/Levodopa [Sinemet 25-250 MG] 0.5 tab PO BID PRN 01/24/18 [History] Cyclobenzaprine HCl 5 mg PO BID 01/24/18 [History] Digoxin 125 mcg PO DAILY 01/24/18 [History] Furosemide [Lasix] 40 mg PO DAILY 01/24/18 [History] Pantoprazole [ProTONIX] 40 mg PO DAILY 01/24/18 [History] Doxycycline Hyclate 100 mg PO BID 03/02/18 [History] Metoprolol Tartrate [Lopressor] 100 mg PO BID 03/02/18 [History] Past Medical History HEENT History: Reports: Cataract, Glaucoma, Other (See Below) Other HEENT History: right pseudophokia Cardiovascular History: Reports: Afib, Heart Failure Respiratory History: Reports: PE Gastrointestinal History: Reports: Other (See Below) Other Gastrointestinal History: diverticulitis Genitourinary History: Reports: Prostate Disorder Other Genitourinary History: left kidney mass Musculoskeletal History: Reports: Back Pain, Chronic Other Musculoskeletal History: shoulder bursitis/tendonitis Neurological History: Reports: Other (See Below) Other Neuro History: restless legs Hematologic History: Reports: Anemia Oncologic (Cancer) History: Reports: Prostate Dermatologic History: Reports: Other (See Below) Other Dermatologic History: chronic itch - Infectious Disease History Infectious Disease History: Reports: Chicken Pox, Mumps - Past Surgical History HEENT Surgical History: Reports: Cataract Surgery, Other (See Below) GI Surgical History: Reports: Hernia, Inguinal Male Surgical History: Reports: Prostate Biopsy, TURP-Transurethral Resection of Prostate Musculoskeletal Surgical History: Reports: Hip Replacement, Shoulder Replacement Social & Family History - Family History Family Medical History: Noncontributory - Tobacco Use Smoking Status *Q: Never Smoker - Caffeine Use Caffeine Use: Reports: None - Recreational Drug Use Recreational Drug Use: No H&P Review of Systems - Review of Systems: Review Of Systems: ROS reveals no pertinent complaints other than HPI. Exam - Exam Exam: See Below - Vital Signs Vital Signs: Last Vital Signs Temp 36.8 C 03/02/18 10:59 Pulse 66 03/02/18 10:59 Resp 24 H 03/02/18 10:59 BP 161/89 H 03/02/18 10:59 Pulse Ox 99 03/02/18 10:59 Weight: 71.35 kg - Exam General: Alert, Oriented, Cooperative HEENT: PERRLA Neck: Supple Lungs: Clear to Auscultation, Normal Respiratory Effort Cardiovascular: Regular Rate, Regular Rhythm, Normal S1, Normal S2 GI/Abdominal Exam: Normal Bowel Sounds, Soft, Non-Tender, No Distention Extremities: Other (Both lower extremities show skin edema but we stasis changes so the ankles themselves are not swollen. Extremely erythematous bilaterally chronically, but on the left the patient has erythema extending up the calf and to the mid thigh and the leg is quite warm. No real induration. Pulses are not palpable bilaterally. +1 edema bilaterally and symmetrically.) - Patient Data Lab Results Last 24 hrs: Laboratory Results - last 24 hr 03/02/18 03/02/18 03/02/18 Range/Units 09:20 09:20 09:20 WBC 8.2 (4.5-12.0) X10-3/uL RBC 3.51 L (4.30-5.75) x10(6)uL Hgb 10.1 L (11.5-15.5) g/dL Hct 31.4 (30.0-51.3) % MCV 89.5 (80-96) fL MCH 28.8 (27.7-33.6) pg MCHC 32.2 (32.2-35.4) g/dL RDW 16.4 H (11.5-15.5) % Plt Count 285 (125-369) X10(3)uL MPV 7.9 (7.4-10.4) fL Neut % (Auto) 65.8 (46-82) % Lymph % (Auto) 16.2 (13-37) % Newton % (Auto) 11.9 (4-12) % Eos % (Auto) 5 (1.0-5.0) % Baso % (Auto) 1 (0-2) % Neut # (Auto) 5.4 (1.6-8.3) # Lymph # (Auto) 1.3 (0.6-5.0) # Newton # (Auto) 1.0 (0.0-1.3) # Eos # (Auto) 0.4 (0.0-0.8) # Baso # (Auto) 0.1 (0.0-0.2) # PT 26.1 H (8.7-11.1) INR 2.72 H (0.89-1.13) Sodium 142 (135-145) mmol/L Potassium 4.0 (3.5-5.3) mmol/L Chloride 105 (100-110) mmol/L Carbon Dioxide 30 (21-32) mmol/L BUN 35 H (7-18) mg/dL Creatinine 1.3 (0.70-1.30) mg/dL Est Cr Clr Drug Dosing TNP Estimated GFR (MDRD) 52 L (>60) BUN/Creatinine Ratio 26.9 H (9-20) Glucose 88 (80-116) mg/dL Lactic Acid (0.4-2.2) mmol/L Calcium 8.6 (8.6-10.2) mg/dL Digoxin (0.9-2.0) ng/mL 03/02/18 03/02/18 Range/Units 09:20 09:20 WBC (4.5-12.0) X10-3/uL RBC (4.30-5.75) x10(6)uL Hgb (11.5-15.5) g/dL Hct (30.0-51.3) % MCV (80-96) fL MCH (27.7-33.6) pg MCHC (32.2-35.4) g/dL RDW (11.5-15.5) % Plt Count (125-369) X10(3)uL MPV (7.4-10.4) fL Neut % (Auto) (46-82) % Lymph % (Auto) (13-37) % Newton % (Auto) (4-12) % Eos % (Auto) (1.0-5.0) % Baso % (Auto) (0-2) % Neut # (Auto) (1.6-8.3) # Lymph # (Auto) (0.6-5.0) # Newton # (Auto) (0.0-1.3) # Eos # (Auto) (0.0-0.8) # Baso # (Auto) (0.0-0.2) # PT (8.7-11.1) INR (0.89-1.13) Sodium (135-145) mmol/L Potassium (3.5-5.3) mmol/L Chloride (100-110) mmol/L Carbon Dioxide (21-32) mmol/L BUN (7-18) mg/dL Creatinine (0.70-1.30) mg/dL Est Cr Clr Drug Dosing Estimated GFR (MDRD) (>60) BUN/Creatinine Ratio (9-20) Glucose (80-116) mg/dL Lactic Acid 1.2 (0.4-2.2) mmol/L Calcium (8.6-10.2) mg/dL Digoxin 1.4 (0.9-2.0) ng/mL Result Diagrams: 03/02/18 09:20 07/14/18 09:20 Imaging Impressions Last 24 hrs: Chest x-ray reading to my reading is unchanged from prior and shows no evidence of fluid overload or infiltrate. - Problem List (1) Left leg cellulitis SNOMED Code(s): 459601573 ICD Code: L03.116 - CELLULITIS OF LEFT LOWER LIMB Status: Acute Current Visit: No Problem Details: This is a difficult case. The patient has no clinical symptoms of infection and in fact feels that his leg is very similar to how it's been in the past. However, on examination the leg certainly looks cellulitic given the extensive redness up the posterior thigh and calf. No pain which makes ischemic leg very unlikely. He's failed 2 courses of outpatient antibiotic therapy but the leg hasn't been worsening and just has failed to improve which reduces my suspicion for infection. The only real supporting evidence for infection as the appearance of the leg itself. Discussed this at length with the patient and his son. The patient has no white count, no fevers, no chills, no pain, no other symptoms of infection. However with the leg being so reddened I feel uncomfortable having the patient just going home on nothing oral antibiotic therapy after he's already failed 2 courses to show improvement. They have been wrapping at home so wrapping seems unlikely to correct this. At this point we have the option to either hospitalized for IV antibiotic therapy assuming this is infectious or discharging the patient home to continue to monitor as an outpatient. I feel he be better off being admitted and managed inpatient. We'll treat with Zosyn and vancomycin for the possibility of anaerobic infection given his poor vascular status. We may just be getting poor penetration with oral antibiotic therapy. Will also use Florastor to help prevent C. difficile. This was discussed at length with the patient and his son as a complication of multiple courses of antibiotic therapy. Discussed that any antibiotic can give this although clindamycin is the highest prevalence of our options. 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 Continue. Pharmacy to dose. (3) RLS (restless legs syndrome) SNOMED Code(s): 79733098 ICD Code: G25.81 - RESTLESS LEGS SYNDROME Status: Acute Current Visit: No Problem Details: Continue home meds. (4) Afib, Atrial fibrillation SNOMED Code(s): 06248718 ICD Code: I48.91 - UNSPECIFIED ATRIAL FIBRILLATION Status: Chronic Current Visit: No Problem Details: Chronic. Observe. (5) HTN, Benign essential hypertension SNOMED Code(s): 4326950 ICD Code: I10 - ESSENTIAL (PRIMARY) HYPERTENSION Status: Chronic Current Visit: No Problem Details: Continue home meds. (6) DVT prophylaxis SNOMED Code(s): 285311174, 622305106 ICD Code: [id number] - Status: Acute Current Visit: Yes Problem Details: Currently anticoagulated. Problem List Initiated/Reviewed/Updated: Yes Orders Last 24hrs: Active Orders 24 hr Category Date Time Status Patient Status [ADT] Routine ADT 03/02/18 10:16 Active Oxygen Therapy [RC] PRN Care 03/02/18 10:16 Active Oxygen Therapy [RC] PRN Care 03/02/18 12:42 Ordered Pulse Oximetry [RC] PRN Care 03/02/18 10:20 Active Up With Assistance [RC] 09,13,17,21 Care 03/02/18 10:16 Active VTE/DVT Education [RC] Per Unit Routine Care 03/02/18 10:16 Active VTE/DVT Education [RC] Per Unit Routine Care 03/02/18 12:42 Ordered VTE/DVT Education [RC] Per Unit Routine Care 03/02/18 12:47 Ordered Vital Signs [RC] 04,08,12,16,20,00 Care 03/02/18 10:16 Active Vital Signs [RC] Q4H Care 03/02/18 12:42 Ordered OT Evaluation and Treatment [CONS] Routine Cons 03/02/18 12:45 Ordered PT Evaluation and Treatment [CONS] Routine Cons 03/02/18 12:45 Ordered 2 Gram Sodium Diet [DIET] Diet 03/02/18 Breakfast Ordered Heart Healthy Diet [DIET] Diet 03/02/18 Breakfast Ordered CXR [Chest 1V Frontal] [CR] Stat Exams 03/02/18 09:03 Taken CBC WITH AUTO DIFF [HEME] AM Lab 03/03/18 05:11 Ordered COMPREHENSIVE METABOLIC PN,CMP [CHEM] AM Lab 03/03/18 05:11 Ordered CULTURE BLOOD [BC] Urgent Lab 03/02/18 09:20 Received CULTURE BLOOD [BC] Urgent Lab 03/02/18 09:25 Received Acetaminophen [Tylenol] Med 03/02/18 12:45 Ordered 650 mg PO Q4H PRN Carbidopa/Levodopa [Sinemet 25-250 mg] Med 03/02/18 12:49 Ordered 0.5 tab PO BID PRN Carbidopa/Levodopa [Sinemet 25-250 mg] Med 03/02/18 16:00 Ordered 1 tab PO 08,12,16,20 Cyclobenzaprine HCl [Cyclobenzaprine HCl] Med 03/02/18 21:00 Ordered 5 mg PO BID Digoxin [Lanoxin] Med 03/03/18 09:00 Ordered 125 mcg PO DAILY Docusate Sodium/Sennosides [Senna Plus] Med 03/03/18 09:00 Ordered 1 each PO DAILY Furosemide [Lasix] Med 03/03/18 09:00 Ordered 40 mg PO DAILY Metoprolol Tartrate [Lopressor] Med 03/02/18 21:00 Ordered 100 mg PO BID Pantoprazole [ProTONIX] Med 03/03/18 09:00 Ordered 40 mg PO DAILY Piperacillin/Tazobactam [Zosyn] 3.375 gm Med 03/02/18 13:00 Ordered Sodium Chloride 0.9% [Normal Saline] 50 ml IV Q6H Saccharomyces Boulardii [Florastor] Med 03/02/18 14:00 Ordered 500 mg PO TID Vancomycin Pharmacy to Dose [Pharmacy to Dose - Med 03/02/18 13:00 Ordered Vancomycin] 1 dose .XX ASDIRECTED Warfarin [Coumadin] Med 03/02/18 20:00 Ordered 2.5 mg PO SUTUTHSA@1999 Warfarin [Coumadin] Med 03/04/18 20:00 Ordered 5 mg PO MOWEFR@1999 Blood Culture x2 Reflex Set [OM.PC] Urgent Oth 03/02/18 09:03 Ordered Resuscitation Status Routine Resus Stat 03/02/18 12:42 Ordered Medication Orders Acetaminophen (Tylenol) 650 mg PO Q4H PRN PRN Reason: Pain (Mild 1-3)/fever Carbidopa/Levodopa (Sinemet 25-250 Mg) 0.5 tab PO BID PRN PRN Reason: RESTLESS LEGS Carbidopa/Levodopa (Sinemet 25-250 Mg) 1 tab PO 08,12,16,20 [facility] Digoxin (Lanoxin) 125 mcg PO DAILY [facility] Furosemide (Lasix) 40 mg PO DAILY [facility] Piperacillin Sod/Tazobactam (Sod 3.375 gm/ Sodium Chloride) 50 mls @ 100 mls/ hr IV Q6H [facility] Metoprolol Tartrate (Lopressor) 100 mg PO BID [facility] Non-Formulary Medication (Cyclobenzaprine Hcl [Cyclobenzaprine Hcl]) 5 mg PO BID [facility] Pantoprazole Sodium (Protonix) 40 mg PO DAILY [facility] Saccharomyces Boulardii (Florastor) 500 mg PO TID [facility] Senna/Docusate Sodium (Senna Plus) tab PO DAILY [facility] Vancomycin HCl (Pharmacy To Dose - Vancomycin) 1 dose .XX ASDIRECTED [facility] Warfarin Sodium (Coumadin) 2.5 mg PO SUTUTHSA@2000 [facility] Warfarin Sodium (Coumadin) 5 mg PO MOWEFR@1999 [facility] Assessment/Plan Comment:: Discussed CODE STATUS at length with the patient at previous hospitalization and reviewed today. He would not want CPR done, no electric shocks, no medications given, no chest compressions. When asked about short-term intubation for a pneumonia or other condition where we might need to hook him to a ventilator, he said he would not want to be hooked to any machines to breathe for him even if it meant he would . Thus patient is DNR/DNI.
[2018-03-02] MEDS ORDERED: Piperacillin/Tazobactam 3.375 GM in Sodium Chloride 0.9% 50 ML IV SCH (13:00)
[2018-03-02] MEDS: Carbidopa/Levodopa 25-250 MG Tab PO SCH ×3 (13:00→20:07)
[2018-03-02] MEDS: Piperacillin/Tazobactam 2.25 GM in Sodium Chloride 0.9% 50 ML IV SCH ×2 (13:43→19:04)
[2018-03-02] MEDS: Saccharomyces Boulardii (Probiotic) 250 MG Cap PO SCH ×2 (14:35→21:15)
[2018-03-02] MEDS: Warfarin 2.5 MG Tab PO SCH (16:19)
[2018-03-02] MEDS: Sodium Chloride 0.9% 10 ML Syringe FLUSH PRN ×2 (16:49→19:40)
[2018-03-02] MEDS: Metoprolol Tartrate 100 MG Tab PO SCH (21:14)
[2018-03-02] MEDS: Cyclobenzaprine 10 MG Tab PO SCH (21:14)
[2018-03-03] MEDS: Piperacillin/Tazobactam 2.25 GM in Sodium Chloride 0.9% 50 ML IV SCH ×4 (01:17→19:33)
[2018-03-03] MEDS: Carbidopa/Levodopa 25-250 MG Tab PO PRN (04:23)
[2018-03-03] MEDS: Pantoprazole 40 MG Tab.CR PO SCH (06:46)
[2018-03-03] MEDS: Metoprolol Tartrate 100 MG Tab PO SCH ×3 (07:31→21:51)
[2018-03-03] MEDS: Digoxin 125 MCG Tab PO SCH ×2 (07:32→08:24)
[2018-03-03] MEDS: Cyclobenzaprine 10 MG Tab PO SCH ×3 (07:32→21:51)
[2018-03-03] MEDS: Furosemide 40 MG Tab PO SCH ×2 (07:33→08:25)
[2018-03-03] MEDS: Saccharomyces Boulardii (Probiotic) 250 MG Cap PO SCH ×3 (08:24→21:52)
[2018-03-03] MEDS: Carbidopa/Levodopa 25-250 MG Tab PO SCH ×4 (08:32→20:03)
--- NOTE | 2018-03-03 09:57 | PCM.PN ---
- General Info Date of Service: 03/03/18 Admission Dx/Problem (Free Text): left lower extremity cellulitis. Subjective Update: Patient is an 87-year-old gentleman currently on hospital day #2 for left lower extremity cellulitis. Skin edema and erythema has improved in the left lower leg. He still has redness extending up above the knee but it is more of a plethora rather than a typical erythema from cellulitis or induration. No pain. He's had no problems with the antibiotics. No nausea, no vomiting, no diarrhea. No fevers, no chills, no sweats. Energy level has improved. - Patient Data Vitals - Most Recent: Last Vital Signs Temp 36.8 C 03/03/18 07:20 Pulse 72 03/03/18 08:24 Resp 20 03/03/18 07:20 BP 184/116 H 03/03/18 07:31 Pulse Ox 93 L 03/03/18 07:20 Weight - Most Recent: 71.35 kg Lab Results Last 24 Hours: Laboratory Results - last 24 hr 03/02/18 03/02/18 03/02/18 Range/Units 09:20 09:20 09:20 WBC 8.2 (4.5-12.0) X10-3/uL RBC 3.51 L (4.30-5.75) x10(6)uL Hgb 10.1 L (11.5-15.5) g/dL Hct 31.4 (30.0-51.3) % MCV 89.5 (80-96) fL MCH 28.8 (27.7-33.6) pg MCHC 32.2 (32.2-35.4) g/dL RDW 16.4 H (11.5-15.5) % Plt Count 285 (125-369) X10(3)uL MPV 7.9 (7.4-10.4) fL Neut % (Auto) 65.8 (46-82) % Lymph % (Auto) 16.2 (13-37) % [place] % (Auto) 11.9 (4-12) % Eos % (Auto) 5 (1.0-5.0) % Baso % (Auto) 1 (0-2) % Neut # (Auto) 5.4 (1.6-8.3) # Lymph # (Auto) 1.3 (0.6-5.0) # [place] # (Auto) 1.0 (0.0-1.3) # Eos # (Auto) 0.4 (0.0-0.8) # Baso # (Auto) 0.1 (0.0-0.2) # PT 26.1 H (8.7-11.1) INR 2.72 H (0.89-1.13) Sodium 142 (135-145) mmol/L Potassium 4.0 (3.5-5.3) mmol/L Chloride 105 (100-110) mmol/L Carbon Dioxide 30 (21-32) mmol/L BUN 35 H (7-18) mg/dL Creatinine 1.3 (0.70-1.30) mg/dL Est Cr Clr Drug Dosing TNP Estimated GFR (MDRD) 52 L (>60) BUN/Creatinine Ratio 26.9 H (9-20) Glucose 88 (80-116) mg/dL Lactic Acid (0.4-2.2) mmol/L Calcium 8.6 (8.6-10.2) mg/dL Total Bilirubin (0.1-1.3) mg/dL AST (5-25) IU/L ALT (12-36) U/L Alkaline Phosphatase (56-112) IU/L Total Protein (6.0-8.0) g/dL Albumin (2.9-4.5) g/dL Globulin g/dL Albumin/Globulin Ratio Vancomycin Peak (30.0-40.0) ug/mL Digoxin (0.9-2.0) ng/mL 03/02/18 03/02/18 03/02/18 Range/Units 09:20 09:20 17:50 WBC (4.5-12.0) X10-3/uL RBC (4.30-5.75) x10(6)uL Hgb (11.5-15.5) g/dL Hct (30.0-51.3) % MCV (80-96) fL MCH (27.7-33.6) pg MCHC (32.2-35.4) g/dL RDW (11.5-15.5) % Plt Count (125-369) X10(3)uL MPV (7.4-10.4) fL Neut % (Auto) (46-82) % Lymph % (Auto) (13-37) % [place] % (Auto) (4-12) % Eos % (Auto) (1.0-5.0) % Baso % (Auto) (0-2) % Neut # (Auto) (1.6-8.3) # Lymph # (Auto) (0.6-5.0) # [place] # (Auto) (0.0-1.3) # Eos # (Auto) (0.0-0.8) # Baso # (Auto) (0.0-0.2) # PT (8.7-11.1) INR (0.89-1.13) Sodium (135-145) mmol/L Potassium (3.5-5.3) mmol/L Chloride (100-110) mmol/L Carbon Dioxide (21-32) mmol/L BUN (7-18) mg/dL Creatinine (0.70-1.30) mg/dL Est Cr Clr Drug Dosing Estimated GFR (MDRD) (>60) BUN/Creatinine Ratio (9-20) Glucose (80-116) mg/dL Lactic Acid 1.2 (0.4-2.2) mmol/L Calcium (8.6-10.2) mg/dL Total Bilirubin (0.1-1.3) mg/dL AST (5-25) IU/L ALT (12-36) U/L Alkaline Phosphatase (56-112) IU/L Total Protein (6.0-8.0) g/dL Albumin (2.9-4.5) g/dL Globulin g/dL Albumin/Globulin Ratio Vancomycin Peak 16.9 L (30.0-40.0) ug/mL Digoxin 1.4 (0.9-2.0) ng/mL 03/03/18 03/03/18 Range/Units 06:10 06:10 WBC 9.8 (4.5-12.0) X10-3/uL RBC 3.52 L (4.30-5.75) x10(6)uL Hgb 10.1 L (11.5-15.5) g/dL Hct 31.6 (30.0-51.3) % MCV 89.6 (80-96) fL MCH 28.7 (27.7-33.6) pg MCHC 32.0 L (32.2-35.4) g/dL RDW 16.4 H (11.5-15.5) % Plt Count 304 (125-369) X10(3)uL MPV 7.8 (7.4-10.4) fL Neut % (Auto) 71.1 (46-82) % Lymph % (Auto) 14.5 (13-37) % [place] % (Auto) 9.0 (4-12) % Eos % (Auto) 5 (1.0-5.0) % Baso % (Auto) 1 (0-2) % Neut # (Auto) 7.0 (1.6-8.3) # Lymph # (Auto) 1.4 (0.6-5.0) # [place] # (Auto) 0.9 (0.0-1.3) # Eos # (Auto) 0.5 (0.0-0.8) # Baso # (Auto) 0.0 (0.0-0.2) # PT (8.7-11.1) INR (0.89-1.13) Sodium 142 (135-145) mmol/L Potassium 4.1 (3.5-5.3) mmol/L Chloride 105 (100-110) mmol/L Carbon Dioxide 32 (21-32) mmol/L BUN 31 H (7-18) mg/dL Creatinine 1.2 (0.70-1.30) mg/dL Est Cr Clr Drug Dosing 41.73 Estimated GFR (MDRD) 57 L (>60) BUN/Creatinine Ratio 25.8 H (9-20) Glucose 91 (80-116) mg/dL Lactic Acid (0.4-2.2) mmol/L Calcium 8.3 L (8.6-10.2) mg/dL Total Bilirubin 0.8 (0.1-1.3) mg/dL AST 23 D (5-25) IU/L ALT 11 L D (12-36) U/L Alkaline Phosphatase 128 H (56-112) IU/L Total Protein 6.1 (6.0-8.0) g/dL Albumin 2.7 L (2.9-4.5) g/dL Globulin 3.4 g/dL Albumin/Globulin Ratio 0.8 Vancomycin Peak (30.0-40.0) ug/mL Digoxin (0.9-2.0) ng/mL Naresh Results Last 24 Hours: Microbiology 03/02/18 09:25 Aerobic Blood Culture - Preliminary Blood - Venous - Lab Draw NO GROWTH AFTER 1 DAY Anaerobic Blood Culture - Preliminary NO GROWTH AFTER 1 DAY 03/02/18 09:20 Aerobic Blood Culture - Preliminary Blood - Venous NO GROWTH AFTER 1 DAY Anaerobic Blood Culture - Preliminary NO GROWTH AFTER 1 DAY Med Orders - Current: Current Medications Acetaminophen (Tylenol) 650 mg PO Q4H PRN PRN Reason: Pain (Mild 1-3)/fever Carbidopa/Levodopa (Sinemet 25-250 Mg) 0.5 tab PO BID PRN PRN Reason: RESTLESS LEGS Last Admin: 03/03/18 04:23 Dose: 0.5 tab Carbidopa/Levodopa (Sinemet 25-250 Mg) 1 tab PO 08,12,16,20 [facility] Last Admin: 03/03/18 08:32 Dose: 1 tab Cyclobenzaprine HCl (Flexeril) 5 mg PO BID [facility] Last Admin: 03/03/18 08:23 Dose: Not Given Digoxin (Lanoxin) 125 mcg PO DAILY [facility] Last Admin: 03/03/18 08:24 Dose: Not Given Furosemide (Lasix) 40 mg PO DAILY [facility] Last Admin: 03/03/18 08:25 Dose: Not Given Piperacillin Sod/Tazobactam (Sod 2.25 gm/ Sodium Chloride) 50 mls @ 100 mls/hr IV Q6H [facility] Last Admin: 03/03/18 06:45 Dose: 100 mls/hr Vancomycin HCl 1,250 mg/ (Sodium Chloride) 500 mls @ 333.333 mls/hr IV Q36H [facility] Last Admin: 03/02/18 14:30 Dose: 333.333 mls/hr Metoprolol Tartrate (Lopressor) 100 mg PO BID [facility] Last Admin: 03/03/18 08:25 Dose: Not Given Pantoprazole Sodium (Protonix) 40 mg PO ACBREAKFAST [facility] Last Admin: 03/03/18 06:46 Dose: 40 mg Saccharomyces Boulardii (Florastor) 500 mg PO TID [facility] Last Admin: 03/03/18 08:24 Dose: 500 mg Senna/Docusate Sodium (Senna Plus) 1 tab PO DAILY [facility] Last Admin: 03/03/18 08:25 Dose: Not Given Sodium Chloride (Saline Flush) 10 ml FLUSH ASDIRECTED PRN PRN Reason: Keep Vein Open Last Admin: 03/02/18 19:40 Dose: 10 ml Vancomycin HCl (Pharmacy To Dose - Vancomycin) 1 dose .XX ASDIRECTED [facility] Warfarin Sodium (Coumadin) 2.5 mg PO SuTuThSa@1600 [facility] Last Admin: 03/02/18 16:19 Dose: 2.5 mg Warfarin Sodium (Coumadin) 5 mg PO MoWeFr@1600 [facility] Discontinued Medications Piperacillin Sod/Tazobactam (Sod 3.375 gm/ Sodium Chloride) 50 mls @ 100 mls/ hr IV Q6H [facility] Last Admin: 03/02/18 13:45 Dose: Not Given - Exam General: Alert, Oriented, Cooperative, No Acute Distress HEENT: Pupils Equal, Pupils Reactive Neck: Supple Lungs: Clear to Auscultation, Normal Respiratory Effort Cardiovascular: Regular Rate, Regular Rhythm, No Murmurs GI/Abdominal Exam: Normal Bowel Sounds, Soft, Non-Tender, No Distention Back Exam: Normal Inspection, Full Range of Motion Extremities: Pedal Edema (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 Plethora is slightly improved but not significantly. ) Psy/Mental Status: Alert, Normal Affect, Normal Mood - Problem List & Annotations (1) Left leg cellulitis SNOMED Code(s): 176683970 Code(s): L03.116 - CELLULITIS OF LEFT LOWER LIMB Status: Acute Current Visit: No Annotation/Comment:: Showing mild improvement since yesterday. This greatly increases my index of suspicion that this was indeed bacterial. Continue current antibiotic therapy. We likely should, if patient willing, complete a 5 day course of antibiotics IV in house and discharge on either no orals or a short course of bactrim. We will follow clinical response. 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 Continue. Pharmacy to dose. (3) RLS (restless legs syndrome) SNOMED Code(s): 15183806 Code(s): G25.81 - RESTLESS LEGS SYNDROME Status: Acute Current Visit: No Annotation/Comment:: Continue home meds. (4) Afib, Atrial fibrillation SNOMED Code(s): 70803436 Code(s): I48.91 - UNSPECIFIED ATRIAL FIBRILLATION Status: Chronic Current Visit: No Annotation/Comment:: Chronic. Observe. (5) HTN, Benign essential hypertension SNOMED Code(s): 4300328 Code(s): I10 - ESSENTIAL (PRIMARY) HYPERTENSION Status: Chronic Current Visit: No Annotation/Comment:: Continue home meds. (6) DVT prophylaxis SNOMED Code(s): 227197992, 593432887 Code(s): MQP9511 - Status: Acute Current Visit: Yes Annotation/Comment :: Currently anticoagulated. - Problem List Review Problem List Initiated/Reviewed/Updated: Yes - My Orders Last 24 Hours: My Active Orders 03/02/18 12:42 Oxygen Therapy [RC] PRN Resuscitation Status Routine 03/02/18 12:45 OT Evaluation and Treatment [CONS] Routine PT Evaluation and Treatment [CONS] Routine Acetaminophen [Tylenol] 650 mg PO Q4H PRN 03/02/18 12:49 Carbidopa/Levodopa [Sinemet 25-250 mg] 0.5 tab PO BID PRN 03/02/18 13:00 Piperacillin/Tazobactam [Zosyn] 2.25 gm Sodium Chloride 0.9% [Normal Saline] 50 ml IV Q6H Vancomycin Pharmacy to Dose [Pharmacy to Dose - Vancomycin] 1 dose .XX ASDIRECTED 03/02/18 13:12 Consult to Pharmacy [CONS] Routine 03/02/18 13:46 Sodium Chloride 0.9% [Saline Flush] 10 ml FLUSH ASDIRECTED PRN 03/02/18 14:00 Saccharomyces Boulardii [Florastor] 500 mg PO TID Vancomycin 1,250 mg Sodium Chloride 0.9% [Normal Saline] 500 ml IV Q36H 03/02/18 16:00 Carbidopa/Levodopa [Sinemet 25-250 mg] 1 tab PO 08,12,16,20 Warfarin [Coumadin] 2.5 mg PO SuTuThSa@1600 03/02/18 21:00 Cyclobenzaprine [Flexeril] 5 mg PO BID Metoprolol Tartrate [Lopressor] 100 mg PO BID 03/03/18 07:30 Pantoprazole [ProTONIX] 40 mg PO ACBREAKFAST 03/03/18 09:00 Digoxin [Lanoxin] 125 mcg PO DAILY Docusate Sodium/Sennosides [Senna Plus] 1 tab PO DAILY Furosemide [Lasix] 40 mg PO DAILY 03/04/18 00:01 VANCOMYCIN TROUGH [CHEM] Routine 03/04/18 16:00 Warfarin [Coumadin] 5 mg PO MoWeFr@1600 - Plan Plan:: Discussed CODE STATUS at length with the patient at previous hospitalization and reviewed today. He would not want CPR done, no electric shocks, no medications given, no chest compressions. When asked about short-term intubation for a pneumonia or other condition where we might need to hook him to a ventilator, he said he would not want to be hooked to any machines to breathe for him even if it meant he would . Thus patient is DNR/DNI.
[2018-03-03] MEDS: hydrALAZINE 10 MG Tab PO SCH ×2 (11:14→21:51)
[2018-03-03] MEDS: Warfarin 2.5 MG Tab PO SCH (16:24)
[2018-03-03] MEDS: Sodium Chloride 0.9% 10 ML Syringe FLUSH PRN ×2 (19:28→20:03)
[2018-03-04] MEDS: Piperacillin/Tazobactam 2.25 GM in Sodium Chloride 0.9% 50 ML IV SCH ×4 (01:30→19:34)
[2018-03-04] MEDS: Sodium Chloride 0.9% 10 ML Syringe FLUSH PRN ×3 (02:06→19:58)
[2018-03-04] MEDS ORDERED: Vancomycin 1,000 MG SDV ONE (02:12)
[2018-03-04] MEDS: Carbidopa/Levodopa 25-250 MG Tab PO PRN (02:36)
[2018-03-04] MEDS: Pantoprazole 40 MG Tab.CR PO SCH (08:10)
[2018-03-04] MEDS: Carbidopa/Levodopa 25-250 MG Tab PO SCH ×4 (08:10→19:59)
[2018-03-04] MEDS ORDERED: Warfarin Sliding Scale PO SCH (09:00)
[2018-03-04] MEDS: hydrALAZINE 25 MG Tab PO SCH ×2 (09:22→21:05)
[2018-03-04] MEDS: Saccharomyces Boulardii (Probiotic) 250 MG Cap PO SCH ×3 (09:22→21:04)
[2018-03-04] MEDS: Digoxin 125 MCG Tab PO SCH (09:22)
[2018-03-04] MEDS: Furosemide 40 MG Tab PO SCH (09:23)
[2018-03-04] MEDS: Metoprolol Tartrate 100 MG Tab PO SCH ×2 (09:23→21:04)
[2018-03-04] MEDS: Cyclobenzaprine 10 MG Tab PO SCH ×2 (09:26→21:04)
--- NOTE | 2018-03-04 11:09 | CR ---
INDICATION: Elevated Pro-BNP. CHEST: An AP upright portable view of the chest, 03/02/2018, was compared with 01/25/2018 and 01/24/2018, revealing no definite interval change or definite acute process with markings slightly prominent in the lung bases and right upper lung field, likely fibrotic in nature - no definite acute consolidating pneumonia or effusion was seen. The heart remains enlarged. No definite evidence of CHF is seen. IMPRESSION: No definite acute process. When clinically possible, full inspiration PA and lateral views of the chest may be helpful for further evaluation. MTDD
--- NOTE | 2018-03-04 13:42 | PCM.PN ---
- General Info Date of Service: 03/04/18 Subjective Update: Patient is an 87-year-old gentleman currently on hospital day #3 for left lower extremity cellulitis. Skin edema and erythema has improved in the left lower leg. Redness extending up above the knee is much improved. No pain. He's had no problems with the antibiotics. No nausea, no vomiting, no diarrhea. No fevers, no chills, no sweats. Energy level has improved. Blood pressures continue to be above 170 systolic intermittently. - Patient Data Vitals - Most Recent: Last Vital Signs Temp 36.4 C 03/04/18 12:00 Pulse 65 03/04/18 12:00 Resp 18 03/04/18 12:00 BP 139/91 H 03/04/18 12:00 Pulse Ox 98 03/04/18 12:00 Weight - Most Recent: 71.35 kg Lab Results Last 24 Hours: Laboratory Results - last 24 hr 03/04/18 03/04/18 Range/Units 00:15 08:10 PT 26.8 H (8.7-11.1) INR 2.79 H (0.89-1.13) Vancomycin Trough 4.6 L (5.0-10.0) ug/mL Naresh Results Last 24 Hours: Microbiology 03/02/18 09:25 Aerobic Blood Culture - Preliminary Blood - Venous - Lab Draw NO GROWTH AFTER 2 DAYS Anaerobic Blood Culture - Preliminary NO GROWTH AFTER 2 DAYS 03/02/18 09:20 Aerobic Blood Culture - Preliminary Blood - Venous NO GROWTH AFTER 2 DAYS Anaerobic Blood Culture - Preliminary NO GROWTH AFTER 2 DAYS Med Orders - Current: Current Medications Acetaminophen (Tylenol) 650 mg PO Q4H PRN PRN Reason: Pain (Mild 1-3)/fever Carbidopa/Levodopa (Sinemet 25-250 Mg) 0.5 tab PO BID PRN PRN Reason: RESTLESS LEGS Last Admin: 03/04/18 02:36 Dose: 0.5 tab Carbidopa/Levodopa (Sinemet 25-250 Mg) 1 tab PO 08,12,16,20 [facility] Last Admin: 03/04/18 12:57 Dose: 1 tab Cyclobenzaprine HCl (Flexeril) 5 mg PO BID [facility] Last Admin: 03/04/18 09:26 Dose: 5 mg Digoxin (Lanoxin) 125 mcg PO DAILY [facility] Last Admin: 03/04/18 09:22 Dose: 125 mcg Furosemide (Lasix) 40 mg PO DAILY [facility] Last Admin: 03/04/18 09:23 Dose: 40 mg Hydralazine HCl (Apresoline) 25 mg PO BID [facility] Last Admin: 03/04/18 09:22 Dose: 25 mg Piperacillin Sod/Tazobactam (Sod 2.25 gm/ Sodium Chloride) 50 mls @ 100 mls/hr IV Q6H [facility] Last Admin: 03/04/18 13:05 Dose: 100 mls/hr Vancomycin HCl 1,000 mg/ (Sodium Chloride) 250 mls @ 167 mls/hr IV Q24H [facility] Metoprolol Tartrate (Lopressor) 100 mg PO BID [facility] Last Admin: 03/04/18 09:23 Dose: 100 mg Pantoprazole Sodium (Protonix) 40 mg PO ACBREAKFAST [facility] Last Admin: 03/04/18 08:10 Dose: 40 mg Saccharomyces Boulardii (Florastor) 500 mg PO TID [facility] Last Admin: 03/04/18 09:22 Dose: 500 mg Senna/Docusate Sodium (Senna Plus) 1 tab PO DAILY [facility] Last Admin: 03/04/18 09:23 Dose: 1 tab Sodium Chloride (Saline Flush) 10 ml FLUSH ASDIRECTED PRN PRN Reason: Keep Vein Open Last Admin: 03/04/18 03:50 Dose: 10 ml Vancomycin HCl (Pharmacy To Dose - Vancomycin) 1 dose .XX ASDIRECTED [facility] Warfarin Sodium (Coumadin) 2.5 mg PO SuTuThSa@1600 [facility] Last Admin: 03/03/18 16:24 Dose: 2.5 mg Warfarin Sodium (Coumadin) 5 mg PO MoWeFr@1600 [facility] Warfarin Sodium (Coumadin Sliding Scale) 0 each PO ASDIRECTED [facility] Discontinued Medications Hydralazine HCl (Apresoline) 10 mg PO BID [facility] Last Admin: 03/03/18 21:51 Dose: 10 mg Piperacillin Sod/Tazobactam (Sod 3.375 gm/ Sodium Chloride) 50 mls @ 100 mls/ hr IV Q6H [facility] Last Admin: 03/02/18 13:45 Dose: Not Given Vancomycin HCl 1,250 mg/ (Sodium Chloride) 500 mls @ 333.333 mls/hr IV Q36H [facility] Last Admin: 03/02/18 14:30 Dose: 333.333 mls/hr Vancomycin HCl 1 gm/ Sodium (Chloride) 250 mls @ 167 mls/hr IV Q24H [facility] Last Admin: 03/04/18 02:20 Dose: 167 mls/hr Vancomycin HCl (Vancomycin) Confirm Administered Dose 1,000 mg .ROUTE .STK-MED ONE Stop: 03/04/18 02:13 Last Admin: 03/04/18 02:39 Dose: Not Given - Exam General: Alert, Oriented, Cooperative HEENT: Pupils Equal, Pupils Reactive Neck: Supple Lungs: Clear to Auscultation, Normal Respiratory Effort Cardiovascular: Regular Rate, No Murmurs, Irregular Rhythm GI/Abdominal Exam: Normal Bowel Sounds, Soft, Non-Tender, No Distention Extremities: Other (Redness markedly improved today. Swelling same as yesterday.) - Problem List & Annotations (1) Left leg cellulitis SNOMED Code(s): 677420408 Code(s): L03.116 - CELLULITIS OF LEFT LOWER LIMB Status: Acute Current Visit: No Annotation/Comment:: Significant improvement overnight. Continue antibiotics IV with zosyn/vanco for total of 5 days. 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 Continue. Pharmacy to dose. (3) RLS (restless legs syndrome) SNOMED Code(s): 79511918 Code(s): G25.81 - RESTLESS LEGS SYNDROME Status: Acute Current Visit: No Annotation/Comment:: Continue home meds. (4) Afib, Atrial fibrillation SNOMED Code(s): 95860017 Code(s): I48.91 - UNSPECIFIED ATRIAL FIBRILLATION Status: Chronic Current Visit: No Annotation/Comment:: Chronic. Observe. (5) HTN, Benign essential hypertension SNOMED Code(s): 7471981 Code(s): I10 - ESSENTIAL (PRIMARY) HYPERTENSION Status: Chronic Current Visit: No Annotation/Comment:: Added hydralazine 10 mg BID yesterday, will increase to 25 mg today. Hold if SBP < 120. (6) DVT prophylaxis SNOMED Code(s): 529614944, 412896268 Code(s): XTW5353 - Status: Acute Current Visit: Yes Annotation/Comment :: Currently anticoagulated. - Problem List Review Problem List Initiated/Reviewed/Updated: Yes - My Orders Last 24 Hours: My Active Orders 03/04/18 09:00 Warfarin Sliding Scale [Coumadin Sliding Scale] See Dose Instructions PO ASDIRECTED hydrALAZINE [Apresoline] 25 mg PO BID 03/04/18 16:00 Warfarin [Coumadin] 5 mg PO MoWeFr@1600 03/05/18 01:30 Vancomycin 1,000 mg Sodium Chloride 0.9% [Normal Saline] 250 ml IV Q24H 03/05/18 07:57 INR,PT,PROTHROMBIN TIME [COAG] DAILY 03/06/18 07:57 INR,PT,PROTHROMBIN TIME [COAG] DAILY 03/08/18 00:30 VANCOMYCIN TROUGH [CHEM] Timed - Plan Plan:: Discussed CODE STATUS at length with the patient at previous hospitalization and reviewed today. He would not want CPR done, no electric shocks, no medications given, no chest compressions. When asked about short-term intubation for a pneumonia or other condition where we might need to hook him to a ventilator, he said he would not want to be hooked to any machines to breathe for him even if it meant he would . Thus patient is DNR/DNI.
[2018-03-04] MEDS ORDERED: Warfarin 5 MG Tab PO SCH (16:00)
[2018-03-05] MEDS: Piperacillin/Tazobactam 2.25 GM in Sodium Chloride 0.9% 50 ML IV SCH ×4 (01:01→19:17)
[2018-03-05] MEDS: Sodium Chloride 0.9% 10 ML Syringe FLUSH PRN ×4 (01:33→14:31)
[2018-03-05] MEDS: Pantoprazole 40 MG Tab.CR PO SCH (07:13)
[2018-03-05] MEDS: Carbidopa/Levodopa 25-250 MG Tab PO SCH ×4 (07:27→20:07)
[2018-03-05] MEDS: hydrALAZINE 25 MG Tab PO SCH ×2 (09:48→21:29)
[2018-03-05] MEDS: Cyclobenzaprine 10 MG Tab PO SCH ×2 (09:48→21:29)
[2018-03-05] MEDS: Furosemide 40 MG Tab PO SCH (09:49)
[2018-03-05] MEDS: Digoxin 125 MCG Tab PO SCH (09:49)
[2018-03-05] MEDS: Metoprolol Tartrate 100 MG Tab PO SCH (09:49)
[2018-03-05] MEDS: Saccharomyces Boulardii (Probiotic) 250 MG Cap PO SCH ×3 (09:49→21:30)
--- NOTE | 2018-03-05 13:38 | PCM.PN ---
- General Info Date of Service: 03/05/18 Subjective Update: Patient is an 87-year-old gentleman currently on hospital day #4 for left lower extremity cellulitis. Skin edema and erythema has improved in the left lower leg. Redness extending up above the knee is improved. No pain. He's had no problems with the antibiotics. No nausea, no vomiting, no diarrhea. No fevers, no chills, no sweats. Energy level has improved. 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 Functional Status: Reports: Pain Controlled, Tolerating Diet, Ambulating, Urinating - Patient Data Vitals - Most Recent: Last Vital Signs Temp 36.4 C 03/05/18 07:40 Pulse 90 03/05/18 09:49 Resp 24 H 03/05/18 07:40 BP 196/113 H 03/05/18 09:49 Pulse Ox 93 L 03/05/18 07:40 Weight - Most Recent: 71.35 kg I&O - Last 24 Hours: Intake & Output 03/04/18 03/05/18 03/05/18 22:59 06:59 14:59 Intake Total 300 Balance 300 Lab Results Last 24 Hours: Laboratory Results - last 24 hr 03/05/18 Range/Units 07:15 PT 27.7 H (8.7-11.1) INR 2.89 H (0.89-1.13) Naresh Results Last 24 Hours: Microbiology 03/02/18 09:25 Aerobic Blood Culture - Preliminary Blood - Venous - Lab Draw NO GROWTH AFTER 3 DAYS Anaerobic Blood Culture - Preliminary NO GROWTH AFTER 3 DAYS 03/02/18 09:20 Aerobic Blood Culture - Preliminary Blood - Venous NO GROWTH AFTER 3 DAYS Anaerobic Blood Culture - Preliminary NO GROWTH AFTER 3 DAYS Med Orders - Current: Current Medications Acetaminophen (Tylenol) 650 mg PO Q4H PRN PRN Reason: Pain (Mild 1-3)/fever Carbidopa/Levodopa (Sinemet 25-250 Mg) 0.5 tab PO BID PRN PRN Reason: RESTLESS LEGS Last Admin: 03/04/18 02:36 Dose: 0.5 tab Carbidopa/Levodopa (Sinemet 25-250 Mg) 1 tab PO 08,12,16,20 [facility] Last Admin: 03/05/18 07:27 Dose: 1 tab Cyclobenzaprine HCl (Flexeril) 5 mg PO BID [facility] Last Admin: 03/05/18 09:48 Dose: 5 mg Digoxin (Lanoxin) 125 mcg PO DAILY [facility] Last Admin: 03/05/18 09:49 Dose: 125 mcg Furosemide (Lasix) 40 mg PO DAILY [facility] Last Admin: 03/05/18 09:49 Dose: 40 mg Hydralazine HCl (Apresoline) 25 mg PO BID [facility] Last Admin: 03/05/18 09:48 Dose: 25 mg Piperacillin Sod/Tazobactam (Sod 2.25 gm/ Sodium Chloride) 50 mls @ 100 mls/hr IV Q6H [facility] Last Admin: 03/05/18 06:45 Dose: 100 mls/hr Vancomycin HCl 1,000 mg/ (Sodium Chloride) 250 mls @ 167 mls/hr IV Q24H [facility] Last Admin: 03/05/18 01:33 Dose: 167 mls/hr Metoprolol Succinate (Toprol Xl) 100 mg PO BEDTIME [facility] Pantoprazole Sodium (Protonix) 40 mg PO ACBREAKFAST [facility] Last Admin: 03/05/18 07:13 Dose: 40 mg Saccharomyces Boulardii (Florastor) 500 mg PO TID [facility] Last Admin: 03/05/18 09:49 Dose: 500 mg Senna/Docusate Sodium (Senna Plus) 1 tab PO DAILY [facility] Last Admin: 03/05/18 09:50 Dose: 1 tab Sodium Chloride (Saline Flush) 10 ml FLUSH ASDIRECTED PRN PRN Reason: Keep Vein Open Last Admin: 03/05/18 07:23 Dose: 10 ml Vancomycin HCl (Pharmacy To Dose - Vancomycin) 1 dose .XX ASDIRECTED [facility] Warfarin Sodium (Coumadin) 2.5 mg PO SuTuThSa@1600 [facility] Last Admin: 03/03/18 16:24 Dose: 2.5 mg Warfarin Sodium (Coumadin) 5 mg PO MoWeFr@1600 [facility] Last Admin: 03/04/18 16:46 Dose: 5 mg Warfarin Sodium (Coumadin Sliding Scale) 0 each PO ASDIRECTED [facility] Discontinued Medications Hydralazine HCl (Apresoline) 10 mg PO BID [facility] Last Admin: 03/03/18 21:51 Dose: 10 mg Piperacillin Sod/Tazobactam (Sod 3.375 gm/ Sodium Chloride) 50 mls @ 100 mls/ hr IV Q6H [facility] Last Admin: 03/02/18 13:45 Dose: Not Given Vancomycin HCl 1,250 mg/ (Sodium Chloride) 500 mls @ 333.333 mls/hr IV Q36H [facility] Last Admin: 03/02/18 14:30 Dose: 333.333 mls/hr Vancomycin HCl 1 gm/ Sodium (Chloride) 250 mls @ 167 mls/hr IV Q24H [facility] Last Admin: 03/04/18 02:20 Dose: 167 mls/hr Metoprolol Tartrate (Lopressor) 100 mg PO BID [facility] Last Admin: 03/05/18 09:49 Dose: 100 mg Vancomycin HCl (Vancomycin) Confirm Administered Dose 1,000 mg .ROUTE .STK-MED ONE Stop: 03/04/18 02:13 Last Admin: 03/04/18 02:39 Dose: Not Given - Exam General: Alert, Oriented, Cooperative, No Acute Distress HEENT: Pupils Equal, Pupils Reactive Neck: Supple Lungs: Clear to Auscultation, Normal Respiratory Effort Cardiovascular: Regular Rate, Irregular Rhythm GI/Abdominal Exam: Normal Bowel Sounds, Soft, Non-Tender, No Distention Extremities: Other (Both lower extremities showed a stasis dermatitis which is unchanged. The patient's left leg looks unchanged. It appears when he is lying in bed the redness is much improved and when he gets up in the chair he has a plethora type appearance to the leg to above the knee which is kind of a reticular vascular prominence pattern.) Psy/Mental Status: Alert, Normal Affect, Normal Mood - Problem List & Annotations (1) Left leg cellulitis SNOMED Code(s): 839014303 Code(s): L03.116 - CELLULITIS OF LEFT LOWER LIMB Status: Acute Current Visit: No Annotation/Comment:: Improved. Continue antibiotics IV with zosyn/ vanco for total of 5 days. Likely discharge tomorrow. 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 Continue. Pharmacy to dose. (3) RLS (restless legs syndrome) SNOMED Code(s): 82205697 Code(s): G25.81 - RESTLESS LEGS SYNDROME Status: Acute Current Visit: No Annotation/Comment:: Continue home meds. (4) Afib, Atrial fibrillation SNOMED Code(s): 32975246 Code(s): I48.91 - UNSPECIFIED ATRIAL FIBRILLATION Status: Chronic Current Visit: No Annotation/Comment:: Chronic. Observe. (5) HTN, Benign essential hypertension SNOMED Code(s): 7674446 Code(s): I10 - ESSENTIAL (PRIMARY) HYPERTENSION Status: Chronic Current Visit: No Annotation/Comment:: Added hydralazine 25 mg which patient is tolerating well. Hold if SBP < 120. Am pressure very high. Will change metoprolol to XL and dose at night so patient may avoid AM excursion of blood pressure. (6) DVT prophylaxis SNOMED Code(s): 813145139, 996661366 Code(s): RUS7525 - Status: Acute Current Visit: Yes Annotation/Comment :: Currently anticoagulated. - Problem List Review Problem List Initiated/Reviewed/Updated: Yes - My Orders Last 24 Hours: My Active Orders 03/04/18 16:00 Warfarin [Coumadin] 5 mg PO MoWeFr@1600 03/05/18 01:30 Vancomycin 1,000 mg Sodium Chloride 0.9% [Normal Saline] 250 ml IV Q24H 03/05/18 21:00 Metoprolol Succinate [Toprol XL] 100 mg PO BEDTIME 03/06/18 07:57 INR,PT,PROTHROMBIN TIME [COAG] DAILY - Plan Plan:: Discussed CODE STATUS at length with the patient at previous hospitalization and reviewed today. He would not want CPR done, no electric shocks, no medications given, no chest compressions. When asked about short-term intubation for a pneumonia or other condition where we might need to hook him to a ventilator, he said he would not want to be hooked to any machines to breathe for him even if it meant he would . Thus patient is DNR/DNI.
[2018-03-05] MEDS: Warfarin 2.5 MG Tab PO SCH (16:01)
[2018-03-05] MEDS ORDERED: Metoprolol Succinate 100 MG Tab.ER PO SCH (21:00)
[2018-03-06] MEDS: Piperacillin/Tazobactam 2.25 GM in Sodium Chloride 0.9% 50 ML IV SCH ×3 (01:49→14:07)
[2018-03-06] MEDS: hydrALAZINE 25 MG Tab PO SCH (08:38)
[2018-03-06] MEDS: Pantoprazole 40 MG Tab.CR PO SCH (08:38)
[2018-03-06] MEDS: Cyclobenzaprine 10 MG Tab PO SCH (08:39)
[2018-03-06] MEDS: Saccharomyces Boulardii (Probiotic) 250 MG Cap PO SCH ×2 (08:39→13:59)
[2018-03-06] MEDS: Digoxin 125 MCG Tab PO SCH (08:40)
[2018-03-06] MEDS: Furosemide 40 MG Tab PO SCH (08:40)
[2018-03-06] MEDS: Carbidopa/Levodopa 25-250 MG Tab PO SCH ×2 (08:43→13:58)
--- NOTE | 2018-03-06 10:20 | PCM.DCSUM1 ---
Discharge Summary - Hospital Course Free Text/Narrative:: Date of admission: 03/02/18 Date of discharge: 03/06/18 Admission diagnosis: Possible left lower extremity cellulitis versus plethora. Discharge diagnosis: Same. Patient did have some mild improvement with IV antibiotic therapy, however when the patient is standing he still continues to have the same plethora in the left lower extremity as previous. The edema is slightly improved. Consults: None Procedures: None History of present illness: Patient is an 87-year-old male that I admitted back in January 2018 with dehydration after he had been admitted in December and had his diuretics increased for congestive heart failure. The patient has done fairly well since that hospitalization in early January. He's always had trouble with lower extremity edema with woody stasis changes to the lower extremities and the dermatitis but over the last 2 weeks prior to admission staff at the [facility] where he lived felt that his left lower extremity was becoming increasingly reddened. On 02/25 presented to the clinic and was seen and evaluated with laboratory work which was negative and started on Keflex 500 mg by mouth 3 times a day for 10 days. He didn't feel that the redness was much worse than usual but the practitioner at the clinic was concerned that this was cellulitis. He had no pain, no fevers, no chills, but had been weaker than usual particularly in the legs. He hadn't had increasing edema. He took the Keflex for 3 days with no improvement and went back into the clinic on the and at that time was changed to doxycycline 100 mg by mouth twice a day 10 days. He had no improvement with that either so came into the emergency department the day of admission at the recommendation of [facility] staff. Hospital course: Patient did well throughout his hospitalization. By hospital day #2 slight amount of edema had diminished and when examining him in the lying position his leg was much less erythematous. However later in the day seeing him in the sitting position in his chair, the leg was again plethoric with a reticular vascular pattern up to the mid thigh. I started him on thigh high BRENDON hose. He tolerated a 5 day course of antibiotic therapy without difficulty. The only complication during his hospitalization was extremely high blood pressures first thing in the morning before he got his blood pressure medications. Blood pressures were in the 180s to 190s systolic 110s to 120s diastolic. We tried a number of adjustments to his medications and his blood pressures were well controlled during the day but we were unable to get these a.m. blood pressures under control. My recommendation as these were asymptomatic was to return to his previous home meds and take his medications first thing upon getting up in the morning for his blood pressure. Follow up with PCP. Discharge instructions: Patient will be discharged on home health to follow for medication adjustments, blood pressure management. Patient is homebound and was seen [id number] on the day of discharge. Anticipate need for lifetime services. Follow-up in one week with PCP. INR was high on the day of discharge, 3.27, hold warfarin day of discharge and follow up for INR on Sunday a.m. Return to regular home meds. No further antibiotic therapy for the leg unless patient has changes in symptoms. - Discharge Data Discharge Date: 03/06/18 Discharge Disposition: Home, W Home Health Agency 06 Condition: Stable - Discharge Diagnosis/Problem(s) (1) Left leg cellulitis SNOMED Code(s): 491015387 ICD Code: L03.116 - CELLULITIS OF LEFT LOWER LIMB Status: Acute Current Visit: No Problem Details: Improved. It still isn't exactly clear to me whether or not this patient had a cellulitis or if this erythema worsening is positional. When I examined him in the bed the leg is not red at all but when he is up and walking around he gets this reticular vascular type erythema up to the mid thigh. At this point I'm going to recommend that we do no further antibiotics outpatient unless he develops new symptoms, and would also recommend thigh-high teds when up so that we can improve circulation and reduce edema. 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 Continue. Pharmacy to dose. (3) RLS (restless legs syndrome) SNOMED Code(s): 06881210 ICD Code: G25.81 - RESTLESS LEGS SYNDROME Status: Acute Current Visit: No Problem Details: Continue home meds. (4) Afib, Atrial fibrillation SNOMED Code(s): 11346890 ICD Code: I48.91 - UNSPECIFIED ATRIAL FIBRILLATION Status: Chronic Current Visit: No Problem Details: Chronic. Observe. (5) HTN, Benign essential hypertension SNOMED Code(s): 3283270 ICD Code: I10 - ESSENTIAL (PRIMARY) HYPERTENSION Status: Chronic Current Visit: No Problem Details: In spite of excellent control during the day, the patient's blood sugars are still high that first blood pressure in the morning. Even with changing metoprolol to ask Anders dosing at night it did not make a difference in a.m. pressure. I'm going to suggest we don't change his home meds but instead he takes them first thing in the morning on getting out of bed. Then he can work with his PCP if there is concerns regarding blood pressure. (6) DVT prophylaxis SNOMED Code(s): 690780355, 484464244 ICD Code: [id number] - Status: Acute Current Visit: Yes Problem Details: Currently anticoagulated. - Patient Summary/Data Consults: Consultations 03/02/18 12:45 OT Evaluation and Treatment [CONS] Routine Please Evaluate and Treat. OT Reason for Consult: eval/tx This query below is only for informational purposes and is not editable. Admission Diagnosis/Problem: Cellulitis PT Evaluation and Treatment [CONS] Routine Please Evaluate and Treat. PT Reason for Consult: eval and tx This query below is only for informational purposes and is not editable. Admission Diagnosis/Problem: Cellulitis 03/02/18 13:12 Consult to Pharmacy [CONS] Routine Comment: Physician Instructions: Quantity: Reason for Consult: coumadin Special Instructions: a fib, hx PE - INR 2-3 - Patient Instructions Diet: Heart Healthy Diet, Low Sodium Activity: As Tolerated Other/Special Instructions: You were admitted to the hospital because your left leg was red and we were concerned about infection. You were treated with IV antibiotics for 5 days. The redness improved when you were lying in bed but it did worsen when you stood up. I am not sure whether or not this truly was an infection. No more antibiotics at home unless you have new symptoms. With regards to your high blood pressure, the only time your pressure was high in the hospital was first thing in the morning before you took your morning meds. Please take your blood pressure medications right away in the morning. Follow up with your regular doctor within 1 week. - Discharge Plan Home Medications: Home Meds Warfarin Sodium [Jantoven] 5 mg PO MOWEFR@199901/19/14 [History] traMADol [Ultram] 50 mg PO Q4H PRN 03/18/17 [History] Carbidopa/Levodopa [Sinemet 25-250 MG] 1 tab PO 08,12,16,20 01/04/18 [History] Celecoxib [CeleBREX] 100 mg PO DAILY PRN 01/04/18 [History] Sennosides/Docusate Sodium [Senna-S] 1 each PO DAILY 01/04/18 [History] Warfarin [Coumadin] 2.5 mg PO SUTUTHSA@199901/04/18 [History] Diclofenac Sodium [Voltaren] 1 applic TP TID PRN 01/05/18 [History] traMADol [Ultram] 100 mg PO Q4H PRN 01/05/18 [History] Carbidopa/Levodopa [Sinemet 25-250 MG] 0.5 tab PO BID PRN 01/24/18 [History] Cyclobenzaprine HCl 5 mg PO BID 01/24/18 [History] Digoxin 125 mcg PO DAILY 01/24/18 [History] Furosemide [Lasix] 40 mg PO DAILY 01/24/18 [History] Pantoprazole [ProTONIX] 40 mg PO DAILY 01/24/18 [History] Metoprolol Tartrate [Lopressor] 100 mg PO BID 03/02/18 [History] Forms: ED Department Discharge Referrals: Avril Dixon, SENIOR TELECOMMUNICATIONS SPECIALIST [Primary Care Provider] - - Discharge Summary/Plan Comment DC Time >30 min.: Yes - Patient Data Vitals - Most Recent: Last Vital Signs Temp 36.3 C 03/06/18 00:35 Pulse 98 03/06/18 08:40 Resp 16 03/06/18 00:35 BP 184/98 H 03/06/18 08:38 Pulse Ox 96 03/06/18 01:00 Weight - Most Recent: 71.35 kg I&O - Last 24 hours: Intake & Output 03/05/18 03/06/18 03/06/18 22:59 06:59 14:59 Intake Total 55 365 Balance 55 365 Lab Results - Last 24 hrs: Laboratory Results - last 24 hr 03/06/18 Range/Units 06:15 PT 31.3 H (8.7-11.1) INR 3.27 H (0.89-1.13) TROY Results - Last 24 hrs: Microbiology 03/02/18 09:25 Aerobic Blood Culture - Preliminary Blood - Venous - Lab Draw NO GROWTH AFTER 4 DAYS Anaerobic Blood Culture - Preliminary NO GROWTH AFTER 4 DAYS 03/02/18 09:20 Aerobic Blood Culture - Preliminary Blood - Venous NO GROWTH AFTER 4 DAYS Anaerobic Blood Culture - Preliminary NO GROWTH AFTER 4 DAYS Med Orders - Current: Current Medications Acetaminophen (Tylenol) 650 mg PO Q4H PRN PRN Reason: Pain (Mild 1-3)/fever Carbidopa/Levodopa (Sinemet 25-250 Mg) 0.5 tab PO BID PRN PRN Reason: RESTLESS LEGS Last Admin: 03/04/18 02:36 Dose: 0.5 tab Carbidopa/Levodopa (Sinemet 25-250 Mg) 1 tab PO 08,12,16,20 [facility] Last Admin: 03/06/18 08:43 Dose: 1 tab Cyclobenzaprine HCl (Flexeril) 5 mg PO BID [facility] Last Admin: 03/06/18 08:39 Dose: 5 mg Digoxin (Lanoxin) 125 mcg PO DAILY [facility] Last Admin: 03/06/18 08:40 Dose: 125 mcg Furosemide (Lasix) 40 mg PO DAILY [facility] Last Admin: 03/06/18 08:40 Dose: 40 mg Hydralazine HCl (Apresoline) 25 mg PO BID [facility] Last Admin: 03/06/18 08:38 Dose: 25 mg Piperacillin Sod/Tazobactam (Sod 2.25 gm/ Sodium Chloride) 50 mls @ 100 mls/hr IV Q6H [facility] Last Admin: 03/06/18 06:34 Dose: 100 mls/hr Vancomycin HCl 1,000 mg/ (Sodium Chloride) 250 mls @ 167 mls/hr IV Q24H [facility] Last Admin: 03/06/18 02:18 Dose: 167 mls/hr Metoprolol Succinate (Toprol Xl) 100 mg PO BEDTIME [facility] Last Admin: 03/05/18 21:30 Dose: 100 mg Pantoprazole Sodium (Protonix) 40 mg PO ACBREAKFAST [facility] Last Admin: 03/06/18 08:38 Dose: 40 mg Saccharomyces Boulardii (Florastor) 500 mg PO TID [facility] Last Admin: 03/06/18 08:39 Dose: 500 mg Senna/Docusate Sodium (Senna Plus) 1 tab PO DAILY [facility] Last Admin: 03/06/18 08:40 Dose: 1 tab Sodium Chloride (Saline Flush) 10 ml FLUSH ASDIRECTED PRN PRN Reason: Keep Vein Open Last Admin: 03/05/18 14:31 Dose: 10 ml Vancomycin HCl (Pharmacy To Dose - Vancomycin) 1 dose .XX ASDIRECTED [facility] Warfarin Sodium (Coumadin) 2.5 mg PO SuTuThSa@1600 [facility] Last Admin: 03/05/18 16:01 Dose: 2.5 mg Warfarin Sodium (Coumadin) 5 mg PO MoWeFr@1600 [facility] Last Admin: 03/04/18 16:46 Dose: 5 mg Warfarin Sodium (Coumadin Sliding Scale) 0 each PO ASDIRECTED [facility] Discontinued Medications Hydralazine HCl (Apresoline) 10 mg PO BID [facility] Last Admin: 03/03/18 21:51 Dose: 10 mg Piperacillin Sod/Tazobactam (Sod 3.375 gm/ Sodium Chloride) 50 mls @ 100 mls/ hr IV Q6H [facility] Last Admin: 03/02/18 13:45 Dose: Not Given Vancomycin HCl 1,250 mg/ (Sodium Chloride) 500 mls @ 333.333 mls/hr IV Q36H [facility] Last Admin: 03/02/18 14:30 Dose: 333.333 mls/hr Vancomycin HCl 1 gm/ Sodium (Chloride) 250 mls @ 167 mls/hr IV Q24H [facility] Last Admin: 03/04/18 02:20 Dose: 167 mls/hr Metoprolol Tartrate (Lopressor) 100 mg PO BID [facility] Last Admin: 03/05/18 09:49 Dose: 100 mg Vancomycin HCl (Vancomycin) Confirm Administered Dose 1,000 mg .ROUTE .STK-MED ONE Stop: 03/04/18 02:13 Last Admin: 03/04/18 02:39 Dose: Not Given
[2018-03-06] MEDS: Sodium Chloride 0.9% 10 ML Syringe FLUSH PRN (14:00)
[2018-03-06 14:39] VITALS: BP 136/77
== END 2018-03-06 15:10 | disposition home health service (06) | DRG 603 ==
LOC: FB.ED 08:31 → FB.MS 10:16
PROVIDERS: ADMIT Family Medicine; ATTEND Family Medicine
DX: L03.116 Cellulitis of left lower limb (principal); I48.91 Unspecified atrial fibrillation; H40.9 Unspecified glaucoma; I48.2 Chronic atrial fibrillation; G25.81 Restless legs syndrome; D64.9 Anemia, unspecified; R23.2 Flushing; Z66 Do not resuscitate; Z79.01 Long term (current) use of anticoagulants; Z96.1 Presence of intraocular lens; I87.2 Venous insufficiency (chronic) (peripheral); Z85.46 Personal history of malignant neoplasm of prostate; I11.0 Hypertensive heart disease with heart failure; I50.9 Heart failure, unspecified; Z86.711 Personal history of pulmonary embolism; Z79.899 Other long term (current) drug therapy; Z88.8 Allergy status to other drugs, medicaments and biological substances
CPT/HCPCS: 36415; 71045; 80048; 80053; 80162; 80202; 83605; 85025; 85610; 87040; 97116-GP; 97161-GP; 99284; 99285; A9270-GY; J2543; J3370; J7040; J7050

== ENCOUNTER 2018-04-06 16:44 | Emergency (ER) | payer MEDICARE, BC ==
[2018-04-06] MEDS ORDERED: Lidocaine 2% 5 ML SDV INFILT ONE (16:45)
--- NOTE | 2018-04-06 16:53 | EDM.PDOC ---
ED HPI GENERAL MEDICAL PROBLEM - General Stated Complaint: FELL Time Seen by Provider: 04/06/18 16:44 Source of Information: Reports: Patient, Family (Sister) History Limitations: Reports: Altered Mental Status, Physical Impairment - History of Present Illness INITIAL COMMENTS - FREE TEXT/NARRATIVE: 87 y.o.w.m came to the ed with his sister to the ed after [facility], [facility] onto his right elbow, right hip and left hand. Pt borja not exactly remember why he fell.However, he said he can not apply weight onto his left leg due to pain. He has a laceration at his right elbow, has FROM however. He noticed a skin tear at his left hand as well. No LOC, no head injury. No N/V/D or dizziness other then his baseline. He takes Coumadin for his A fib. Pt is a poor historian. HPI was given by his sister and son, who arrived later on. BP 184/98 pulse 72 RR 18 Temp 36.9 Pulse ox 97% on RA Onset: Today Onset Date: 04/06/18 Onset Time: 13:00 Duration: Hour(s):, Constant Location: Reports: Upper Extremity, Left, Upper Extremity, Right, Lower Extremity, Right Quality: Reports: Ache, Burning, Dull Severity: Moderate Improves with: Reports: Rest Worsens with: Reports: Movement Context: Reports: Trauma Associated Symptoms: Reports: Weakness Right Leg Pain Score (Numeric/FACES): 10 - Related Data Allergies Allergy/AdvReac Type Severity Reaction Status Date / Time diclofenac Allergy Shortness Verified 03/21/18 10:33 of Breath promethazine Allergy Confusion Verified 03/21/18 10:33 Home Meds: Home Meds Warfarin Sodium [Jantoven] 5 mg PO [id number]@199901/19/14 [History] traMADol [Ultram] 50 mg PO Q4H PRN 03/18/17 [History] Carbidopa/Levodopa [Sinemet 25-250 MG] 1 tab PO 06,12,16,20 01/04/18 [History] Celecoxib [CeleBREX] 100 mg PO DAILY PRN 01/04/18 [History] Sennosides/Docusate Sodium [Senna-S] 1 each PO DAILY 01/04/18 [History] Diclofenac Sodium [Voltaren] 1 applic TP TID PRN 01/05/18 [History] Carbidopa/Levodopa [Sinemet 25-250 MG] 1 tab PO BID PRN 01/24/18 [History] Cyclobenzaprine HCl 5 mg PO BID 01/24/18 [History] Digoxin 125 mcg PO DAILY 01/24/18 [History] Furosemide [Lasix] 40 mg PO DAILY 01/24/18 [History] Pantoprazole [ProTONIX] 40 mg PO DAILY 01/24/18 [History] Warfarin [Coumadin] 2.5 mg PO SUTUTHSA@20 03/21/18 [History] Metoprolol Tartrate [Lopressor] 50 mg PO BID #60 tablet 03/23/18 [Rx] Cephalexin [Keflex] 500 mg PO Q6HRBH #40 capsule 04/06/18 [Rx] Past Medical History HEENT History: Reports: Cataract, Glaucoma, Other (See Below) Other HEENT History: right pseudophokia Cardiovascular History: Reports: Afib, Heart Failure Respiratory History: Reports: PE Gastrointestinal History: Reports: Other (See Below) Other Gastrointestinal History: diverticulitis Genitourinary History: Reports: Prostate Disorder Other Genitourinary History: left kidney mass Musculoskeletal History: Reports: Back Pain, Chronic Other Musculoskeletal History: shoulder bursitis/tendonitis Neurological History: Reports: Other (See Below) Other Neuro History: restless legs Hematologic History: Reports: Anemia Oncologic (Cancer) History: Reports: Prostate Dermatologic History: Reports: Other (See Below) Other Dermatologic History: chronic itch - Infectious Disease History Infectious Disease History: Reports: Chicken Pox, Mumps - Past Surgical History HEENT Surgical History: Reports: Cataract Surgery, Other (See Below) GI Surgical History: Reports: Hernia, Inguinal Male Surgical History: Reports: Prostate Biopsy, TURP-Transurethral Resection of Prostate Musculoskeletal Surgical History: Reports: Hip Replacement, Shoulder Replacement Social & Family History - Family History Family Medical History: Noncontributory - Caffeine Use Caffeine Use: Reports: None Review of Systems - Review of Systems Review Of Systems: Unable To Obtain ED EXAM, GENERAL - Physical Exam Exam: See Below Exam Limited By: Physical Impairment General Appearance: Alert, Mild Distress, Thin Eye Exam: Bilateral Eye: Normal Inspection Ears: Normal External Exam Ear Exam: Bilateral Ear: Auricle Normal Nose: Normal Inspection, Normal Mucosa Throat/Mouth: Normal Inspection, Normal Lips, Normal Voice, No Airway Compromise Head: Atraumatic, Normocephalic Neck: Normal Inspection, Supple, Non-Tender, Full Range of Motion Respiratory/Chest: No Respiratory Distress, Lungs Clear, Normal Breath Sounds ( poor insp effoert) Cardiovascular: Normal Peripheral Pulses, No JVD, No Rub, Irregularly Irregular (not new) Peripheral Pulses: 1+: Radial (R) GI/Abdominal: Normal Bowel Sounds, Soft, Non-Tender, No Distention, No Abnormal Bruit (Male) Exam: Deferred Rectal (Males) Exam: Deferred Back Exam: Normal Inspection, Full Range of Motion Extremities: Limited Range of Motion (of right lower leg due to pain) Neurological: Alert, Oriented, CN II-XII Intact, Abnormal Gait (due to hip pain) Psychiatric: Normal Affect, Normal Mood Skin Exam: Warm, Wound/Incision (right elbow, left hand) Lymphatic: No Adenopathy ED TRAUMA PROCEDURES - Laceration/Wound Repair Right Posterior Elbow Lac/Wound Length In cm: 4 Appearance: Stellate, Irregular, Clean Distal NVT: Neuro & Vascular Intact, No Tendon Injury Anesthetic Type: Local Local Anesthesia - Lidocaine (Xylocaine): 2% Plain Local Anesthetic Volume: 5cc Skin Prep: Providone-Iodine (Betadine) Saline Irrigation (cc's): 8 Exploration/Debridement/Repair: Wound Explored, In a Bloodless Field, Explored to Base Closed With: Sutures Suture Size: 4-0 # of Sutures: 13 Suture Type: Other (ethilon) Sterile Dressing Applied: Nurse Tetanus Status Addressed: Yes Complications: No Course - Vital Signs Text/Narrative:: 87 y.o.w.m came to the ed with his sister to the ed after he fell, at the prison onto his right elbow, right hip and left hand. Pt borja not exactly remember why he fell.However, he said he can not apply weight onto his left leg due to pain. He has a laceration at his right elbow, has FROM however. He noticed a skin tear at his left hand as well. No LOC, no head injury. No N/V/D or dizziness other then his baseline. He takes Coumadin for his A fib. Pt is a poor historian. HPI was given by his sister and son, who arrived later on. BP 184/98 pulse 72 RR 18 Temp 36.9 Pulse ox 97% on RA PE: Thin 87 y.o.w.m s/p fall with a LAC posterior right elbow, skin tear left hand, minor and right hip pain when applying weight on it. Labs: Not taken because his INR was checked 1 day prior and was 2.2 as per patient, no active bleed Imaging: X ray of pelvis and right hip: No acute Fx, bilat total hip replacement , no definate heardwear loosing, on the right there is likely polyethylene wear. Procedure note: Please see above Impression: Fall, Right hip alivia, Laceration Right elbow (complex) Tx: Wound care right elbow (suturing), right arm sling, Steristips applied left hand skin tear, done by nurse. Abx and TD was given in the ed Reexam: Pt improved and could apply weight onto his right hip an D/C Plan: D/C with instructions Addendum: 9.01 am of 04/07/2018: Pt's son (son's ) was advised (called) to make sure his Dad's INR level is checked in 3 days, since the Abxs can influence the INR level. Last Recorded V/S: Last Vital Signs Temp 36.3 C 04/06/18 16:45 Pulse 72 04/06/18 16:45 Resp 16 04/06/18 16:45 BP 184/98 H 04/06/18 16:45 Pulse Ox 97 04/06/18 16:45 - Orders/Labs/Meds Orders: Active Orders 24 hr Category Date Time Status Vaccines to be Administered [RC] PER UNIT ROUTINE Care 04/06/18 19:43 Active Hip Min 2V or 3V w Pelvis Rt [CR] Stat Exams 04/06/18 17:14 Taken Meds: Medications Discontinued Medications Generic Name Dose Route Start Last Admin Trade Name Freq PRN Reason Stop Dose Admin Cephalexin 500 mg 04/06/18 19:43 04/06/18 19:57 Keflex PO 04/06/18 19:44 500 mg ONETIME ONE Administration Diphtheria/Tetanus/Acell Pertussis 0.5 ml 04/06/18 19:42 04/06/18 19:58 Adacel IM 04/06/18 19:43 0.5 ml .ONCE ONE Administration Departure - Departure Time of Disposition: 19:48 Disposition: Home, Self-Care 01 Condition: Good Clinical Impression: Laceration, Leg sprain Fall Qualifiers: Encounter type: initial encounter Qualified Code(s): W19.XXXA - Unspecified fall, initial encounter - Discharge Information *PRESCRIPTION DRUG MONITORING PROGRAM REVIEWED*: Yes *COPY OF PRESCRIPTION DRUG MONITORING REPORT IN PATIENT FLORESITA: Yes Prescriptions: Cephalexin [Keflex] 500 mg PO Q6HRBH #40 capsule Instructions: Fall Prevention in the Home, [id number], Laceration Care, Adult Referrals: Parker Zayas MD [Primary Care Provider] - Forms: ED Department Discharge Additional Instructions: Please take Keflex as recommended. Please cont your pain meds, wound check in 3 days. Please f/u wit your PMD, suture removal in 14+ days, elevate your right elbow, apply ice to it as needed, come back if your symptoms get worse acutely. - My Orders Last 24 Hours: My Active Orders 04/06/18 17:14 Hip Min 2V or 3V w Pelvis Rt [CR] Stat 04/06/18 19:43 Vaccines to be Administered [RC] PER UNIT ROUTINE - Assessment/Plan Last 24 Hours: My Active Orders 04/06/18 17:14 Hip Min 2V or 3V w Pelvis Rt [CR] Stat 04/06/18 19:43 Vaccines to be Administered [RC] PER UNIT ROUTINE
[2018-04-06 17:40] VITALS: BP 184/98
[2018-04-06] MEDS ORDERED: Diphtheria,Pertussis(Acell),Tetanus Vaccine 0.5 ML SDV IM ONE (19:42)
[2018-04-06] MEDS ORDERED: Cephalexin 500 MG Cap PO ONE (19:43)
== END 2018-04-06 20:20 | disposition home or self-care (01) ==
LOC: FB.ED 16:44
DX: S51.011A Laceration without foreign body of right elbow, initial encounter (principal); I50.9 Heart failure, unspecified; Z23 Encounter for immunization; W19.XXXA Unspecified fall, initial encounter; Y92.129 Unspecified place in nursing home as the place of occurrence of the external cause
CPT/HCPCS: 12002; 73502; 90471; 90715; 99283; A9270; 12001